=== PATIENT | female | born 1940 | race Caucasian/White ===

== ENCOUNTER → 2017-05-03 | Outpatient (CLI) | payer MEDICARE, BC ==
[2017-05-03 10:19] LABS: Blood Urea Nitrogen 21 mg/dL (7-17); Non-African American GFR(MDRD) >60 (>60 ml/min/1.73 sqM)
--- NOTE | 2017-05-03 12:11 | MR ---
EXAMINATION TYPE: MR brain wo/w con DATE OF EXAM: 05/03/2017 11:35 AM COMPARISON: NONE HISTORY: Dizziness, Tremors TECHNIQUE: Multiplanar, multiecho imaging of the brain was obtained with and without intravenous adm inistration of 15 mL intravenous MultiHance. FINDINGS: Midline structures are unremarkable. There is a normal craniocervical junction. Echoplanar diffusion imaging is normal. There are normal vascular flow voids. The orbits are unremarkable. There is no evidence of a CP angle mass lesion. There are both punctate and mild confluent white matter changes on the FLAIR dataset. These are nonsp ecific but in this age group likely result from small vessel disease and chronic ischemic change. The re is no mass effect, midline shift or intracranial blood. Following intravenous administration of gadolinium, I do not see evidence of abnormal enhancement. IMPRESSION: 1. NO ACUTE INTRACRANIAL ABNORMALITY. 2. BOTH PUNCTATE AND CONFLUENT PERIVENTRICULAR WHITE MATTER CHANGE LIKELY ON THE BASIS OF A COMBINATI ON OF SMALL VESSEL DISEASE AND CHRONIC ISCHEMIC CHANGE.
== END | disposition home or self-care (01) ==
LOC: RADMRIMAIN 09:56
PROVIDERS: ATTEND Psychiatry & Neurology Neurology
DX: C71.9 Malignant neoplasm of brain, unspecified (principal); R90.82 White matter disease, unspecified; R25.1 Tremor, unspecified
CPT/HCPCS: 82565; 84520; 70553; A9577

== ENCOUNTER 2017-12-14 12:51 | Emergency (ER) | payer MEDICARE, BC ==
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
[2017-12-14] MEDS ORDERED: SODIUM CHLORIDE 0.9% 1,000 ML IV STA (12:57)
[2017-12-14 13:27] LABS: Basophils % (A) 0 %; Eosinophils # (A) 0.1 k/uL (0-0.7); Eosinophils % (A) 1 %; HCT 41.7 % (34.0-46.0); HGB 13.6 gm/dL (11.4-16.0); Lymphocytes # (A) 0.6 k/uL (1.0-4.8); Lymphocytes % (A) 10 %; MCH 31.2 pg (25.0-35.0); MCHC 32.7 g/dL (31.0-37.0); MCV 95.7 fL (80.0-100.0); Monocytes # (A) 0.4 k/uL (0-1.0); Monocytes % (A) 6 %; Neutrophils # (A) 4.9 k/uL (1.3-7.7); Neutrophils % (A) 79 %; Platelet Count 211 k/uL (150-450); RBC 4.36 m/uL (3.80-5.40); RDW 13.5 % (11.5-15.5); WBC 6.2 k/uL (3.8-10.6)
[2017-12-14 13:36] LABS: Albumin 4.3 g/dL (3.5-5.0); Alcohol <10 mg/dL; Amylase 47 U/L (30-110); Anion Gap 10 mmol/L; Calcium 10.3 mg/dL (8.4-10.2); Carbon Dioxide 26 mmol/L (22-30); Chloride 101 mmol/L (98-107); Glucose 86 mg/dL (74-99); Lipase 129 U/L (23-300); Sodium 137 mmol/L (137-145); Total Bilirubin 0.8 mg/dL (0.2-1.3); Total Protein 7.1 g/dL (6.3-8.2)
[2017-12-14 13:40] LABS: AST 23 U/L (14-36); Blood Urea Nitrogen 20 mg/dL (7-17); INR 2.5 (<1.2); Partial Thromboplastin Time 30.4 sec (22.0-30.0); Prothrombin Time 22.7 sec (9.0-12.0)
[2017-12-14 13:41] LABS: ALT 8 U/L (9-52); Alkaline Phosphatase 60 U/L (38-126)
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
[2017-12-14 13:59] LABS: Creatine Kinase 68 U/L (30-135)
[2017-12-14 14:11] LABS: Creatine Kinase MB 0.5 ng/mL (0.0-2.4); Troponin I <0.012 ng/mL (0.000-0.034)
--- NOTE | 2017-12-14 14:35 | CT ---
EXAMINATION TYPE: CT brain barrett solorzano con DATE OF EXAM: 12/14/2017 COMPARISON: NONE HISTORY: Fall down 2 steps, pt on blood thinners CT DLP: 1861 mGycm Automated exposure control for dose reduction was used. Technique: Examination of the head was done in axial plane without intravenous contrast. Coronal and sagittal reconstructions performed. CT of the cervical spine was obtained in axial plane without intravenous injection of contrast mater ial. Coronal and sagittal reformatted images were obtained from the axial views for evaluation of f ractures, spinal alignment and canal. FINDINGS: Head: There is no evidence of acute intracranial hemorrhage, acute ischemic changes, mass, mass-effect, or extra-axial fluid collection. There is no effacement of cerebral sulci or basal subarachnoid cister ns. There is no hydrocephalus. There is no midline shift. Shirley-white matter distinction is preserv ed. Mild generalized supratentorial volume loss. Findings suggest prior sinonasal surgery. Mild mucosal thickening within the paranasal sinuses. Masto id air cells well pneumatized. Orbits and globes are intact. No calvarial fracture. Cervical spine: The craniocervical junction abnormality, predental space widening, or prevertebral soft tissue swelli ng. Normal alignment of the cervical spine. No acute fracture identified. Scattered facet and uncovertebral joint degenerative change. Changes result in very minimal mild neur al foraminal narrowing especially in the mid and lower cervical spine. Disc osteophyte complexes especially at C5-C6 and C6-C7 causes minimal narrowing of the spinal canal. Incidentally, there is a 1.2 cm hypodense nodule posterior left lobe of the thyroid gland. Sagittal and coronal reformatted images confirm above findings. COMBINED IMPRESSION: 1. No acute intracranial abnormality seen. 2. No acute fracture or malalignment of the cervical spine. Moderate multilevel spondylotic change. 3. Incidental 1.2 cm left thyroid nodule located posteriorly. Nonemergent follow-up thyroid ultrasoun d recommended to further evaluate.
--- NOTE | 2017-12-14 14:58 | XR ---
EXAMINATION TYPE: XR Hip Complete 2 views RT, XR elbow complete 3 views RT DATE OF EXAM: 12/14/2017 COMPARISON: NONE HISTORY: 76-year-old female with a pain after fall FINDINGS: Right hip: No acute fracture, subluxation, or dislocation. Hip joint space is relatively maintained. Right elbow: No acute fracture, subluxation, or dislocation seen. Mild soft tissue swelling posteriorly. Somewhat limited lateral view due to obliquity. No significant elbow joint effusion. IMPRESSION: 1. Right hip: No acute osseous abnormality seen. 2. Right elbow: Somewhat limited lateral view. No significant elbow joint effusion or acute osseous a bnormality seen. Some posterior soft tissue swelling.
[2017-12-14 15:26] VITALS: BP 130/63; PULSE 72; RESP 16; TEMP 98.2
== END 2017-12-14 15:45 | disposition home or self-care (01) ==
LOC: EC 12:51
DX: S09.90XA Unspecified injury of head, initial encounter (principal); R51 Headache; I48.91 Unspecified atrial fibrillation; I25.10 Atherosclerotic heart disease of native coronary artery without angina pectoris; I10 Essential (primary) hypertension; M19.90 Unspecified osteoarthritis, unspecified site; E07.9 Disorder of thyroid, unspecified; G40.909 Epilepsy, unspecified, not intractable, without status epilepticus; F41.9 Anxiety disorder, unspecified; Z87.891 Personal history of nicotine dependence; Z88.5 Allergy status to narcotic agent; Z88.1 Allergy status to other antibiotic agents; Z91.048 Other nonmedicinal substance allergy status; Z91.040 Latex allergy status; Z91.018 Allergy to other foods; Z88.4 Allergy status to anesthetic agent; Z91.041 Radiographic dye allergy status; Z88.8 Allergy status to other drugs, medicaments and biological substances; Z79.01 Long term (current) use of anticoagulants; Z79.899 Other long term (current) drug therapy; W10.9XXA Fall (on) (from) unspecified stairs and steps, initial encounter
CPT/HCPCS: 36415; 70450; 71045; 72125; 72170; 73502; 80053; 80320; 82150; 82550; 82553; 83690; 84484; 85025; 85610; 85730; 86850; 86900; 86901; 96360; 99284

== ENCOUNTER 2021-01-06 15:15 | Inpatient (IN) | payer MEDICARE, BC ==
[2021-01-06] MEDS ORDERED: SODIUM CHLORIDE 0.9% 1,000 ML IV STA (15:31)
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
[2021-01-06 16:29] LABS: Basophils % (A) 0 %; Eosinophils # (A) 0.1 k/uL (0-0.7); Eosinophils % (A) 1 %; HCT 37.7 % (34.0-46.0); HGB 12.9 gm/dL (11.4-16.0); Lymphocytes # (A) 0.2 k/uL (1.0-4.8); Lymphocytes % (A) 3 %; MCH 32.1 pg (25.0-35.0); MCHC 34.1 g/dL (31.0-37.0); Mean Platelet Volume 7.6; Monocytes # (A) 0.3 k/uL (0-1.0); Monocytes % (A) 4 %; Neutrophils # (A) 6.4 k/uL (1.3-7.7); Neutrophils % (A) 91 %; Platelet Count 165 k/uL (150-450); RBC 4.01 m/uL (3.80-5.40); RDW 13.2 % (11.5-15.5)
[2021-01-06 16:47] LABS: Amorphous Sediment,Urine Rare /hpf; Appearance,Urine Turbid (Clear); Bacteria,Urine Many /hpf; Bilirubin,Urine Negative (Negative); Blood,Urine Moderate (Negative); Color,Urine Yellow; Glucose,Urine (UA) Negative (Negative); Ketones,Urine Negative (Negative); Leukocyte Esterase,Urine Small (Negative); Mucus,Urine Occasional /hpf; Nitrite,Urine Negative (Negative); Protein,Urine 2+ (Negative); RBC,Urine 14 /hpf (0-5); Specific Gravity,Urine 1.023 (1.001-1.035); Squamous Epithelial Cell,Urine 14 /hpf (0-4); WBC,Urine 26 /hpf (0-5)
[2021-01-06 16:52] LABS: Albumin 3.4 g/dL (3.5-5.0); Calcium 8.9 mg/dL (8.4-10.2); Magnesium 1.7 mg/dL (1.6-2.3); Potassium 3.9 mmol/L (3.5-5.1); Total Bilirubin 0.8 mg/dL (0.2-1.3); Total Protein 6.1 g/dL (6.3-8.2)
[2021-01-06 17:02] LABS: INR 3.5 (<1.2); Partial Thromboplastin Time 45.2 sec (22.0-30.0); Prothrombin Time 33.2 sec (9.0-12.0)
--- NOTE | 2021-01-06 17:08 | CT ---
EXAMINATION TYPE: CT brain wo con DATE OF EXAM: 01/06/2021 COMPARISON: 12/14/2017 HISTORY: Patient poor historian. Altered mental status CT DLP: 1142.4 mGycm Automated exposure control for dose reduction was used. There is mild cerebral atrophy. There is no mass effect nor midline shift. There is no sign of intrac ranial hemorrhage. The calvarium is intact. The skull base is intact. IMPRESSION: Mild atrophy. No acute intracranial abnormality. No adverse change.
--- NOTE | 2021-01-06 17:19 | XR ---
EXAMINATION TYPE: XR chest 1V portable DATE OF EXAM: 01/06/2021 COMPARISON: 12/14/2017 HISTORY: Trauma. Fell down the stairs. TECHNIQUE: Single view FINDINGS: AP view on the stretcher shows no heart failure nor confluent pneumonic infiltrate. There i s no sign of pleural effusion or pneumothorax. There is some arthritic change in the right shoulder j oint. IMPRESSION: No active cardiopulmonary disease. Normal heart. No change.
--- NOTE | 2021-01-06 17:21 | XR ---
EXAMINATION TYPE: XR KUB DATE OF EXAM: 01/06/2021 COMPARISON: NONE HISTORY: Weakness TECHNIQUE: 2 views supine FINDINGS: There is no sign of intestinal obstruction or pneumoperitoneum. Fecal pattern is normal. Th ere is no evidence of a mass. There are no pathologic calcifications over the kidneys. Lung bases are clear. IMPRESSION: Nonacute abdomen.
[2021-01-06] MEDS ORDERED: methylPREDNISolone SOD SUCCI 125 MG/2 ML VIAL IV STA (17:55)
[2021-01-06] MEDS ORDERED: FAMOTIDINE 20 MG/2 ML VIAL IV STA (17:55)
[2021-01-06] MEDS ORDERED: diphenhydrAMINE 50 MG/ML 1 ML VIAL IVP STA (17:55)
[2021-01-06] MEDS ORDERED: fentaNYL (PF) 50 MCG/ML 2 ML AMP IV STA (18:27)
[2021-01-06] MEDS: SODIUM CHLORIDE 0.9% 1,000 ML IV STA ×2 (18:33→20:43)
--- NOTE | 2021-01-06 19:16 | CT ---
EXAMINATION TYPE: CT angio chest DATE OF EXAM: 01/06/2021 COMPARISON: None HISTORY: Weakness and elevated d-dimer. CT DLP: 337.6 mGycm Automated exposure control for dose reduction was used. CONTRAST: Performed with IV Contrast, patient injected with 100ml mL of Isovue 370. There are 3-D post processed images. There is some patchy atelectasis at the lung bases. This is more on the right side compared to the le ft. There is no pleural effusion. There is no pericardial effusion. Thoracic aorta is atheromatous. There is no aneurysm or dissection. The ascending aorta measures 3.2 cm. There is no mediastinal adenopathy. There are no hilar masses. There is bronchial cartilage calci fication. There is normal contrast opacification of the pulmonary arteries. There are no filling defects. Thoracic spine is intact. There is no compression fracture. Sternum is intact. The ribs appear intact . IMPRESSION: Patchy atelectasis at the lung bases. No evidence of pulmonary embolism.
--- NOTE | 2021-01-06 19:25 | CT ---
EXAMINATION TYPE: CT abdomen pelvis w con DATE OF EXAM: 01/06/2021 COMPARISON: 05/28/2015 HISTORY: Weakness and abdominal pain x4 days. CT DLP: 1084.6 mGycm Automated exposure control for dose reduction was used. CONTRAST: Performed with IV Contrast, patient injected with 100ml mL of Isovue 370. Images obtained from the diaphragm to the floor the pelvis with IV contrast. There is some mild atelectasis at the lung bases. There is minimal pleural thickening right lower lob e. There is no pericardial effusion. Heart is slightly enlarged. Liver shows no focal defect. Gallbladder appears normal. The bile ducts are not dilated. There is keren e pancreatic atrophy. The spleen is intact. There is no adrenal mass. Kidneys show satisfactory contrast opacification. There is no hydronephrosi s. There is 4.7 cm cyst on the anterior right kidney. Ureters are not dilated. Delayed images show no rmal renal excretion. There are enlarged left side abdominal para-aortic lymph nodes that measure up to 2.2 cm. There is wall thickening of the sigmoid colon. There are numerous diverticula. There are some extralu pete air bubbles seen posterior to the proximal sigmoid colon. There is no drainable fluid collectio n. There is small amount of low-density free fluid in the right adnexal region. Uterus is anteverted. There is retained fecal material in the rectum that measures 6.4 cm. The lumbar vertebra have normal alignment. There is no compression fracture. There is multilevel mild disc space narrowing. The bony pelvis is intact. The hip joints are intact. IMPRESSION: There is colonic diverticulosis with evidence of diverticulitis in the mid sigmoid colon with fat str anding and surrounding inflammatory changes. There is small extraluminal air bubbles that appear post erior to the proximal sigmoid colon. No drainable fluid collection. Rectal fecal impaction. Small amount of free fluid in the right paracolic gutter and in the pelvis. Left side abdominal enlarged para-aortic lymph nodes. Patchy atelectasis at the lung bases.
[2021-01-06] MEDS ORDERED: PIPERACILLIN-TAZOBACTAM 3.375 GM in SODIUM CHLORIDE 0.9% 100 ML IVPB STA (19:30)
[2021-01-06] MEDS ORDERED: NALOXONE 0.4 MG/ML 1 ML VIAL IV PRN (19:47)
[2021-01-06] MEDS: SODIUM CHLORIDE 0.9% 1,000 ML IV SCH (21:34)
[2021-01-07 03:19] LABS: Ferritin 469.8 ng/mL (10.0-291.0)
[2021-01-07] MEDS ORDERED: PIPERACILLIN-TAZOBACTAM 3.375 GM in SODIUM CHLORIDE 0.9% 100 ML IVPB SCH (04:00)
[2021-01-07] MEDS: SODIUM CHLORIDE 0.9% 1,000 ML IV SCH ×2 (04:08→17:20)
[2021-01-07] MEDS: PANTOPRAZOLE 40 MG/10 ML VIAL IV SCH (08:52)
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
[2021-01-07] MEDS ORDERED: GABAPENTIN 100 MG CAP PO PRN (12:09)
[2021-01-07] MEDS: PIPERACILLIN-TAZOBACTAM 3.375 GM in SODIUM CHLORIDE 0.9% 100 ML IVPB SCH ×2 (12:26→20:01)
[2021-01-07] MEDS: CITALOPRAM HYDROBROMIDE 10 MG TAB PO SCH (13:38)
[2021-01-07] MEDS: ENOXAPARIN 60 MG/0.6 ML SYRINGE SQ SCH ×2 (13:39→21:01)
[2021-01-07] MEDS: LEVOTHYROXINE 25 MCG TAB PO SCH (13:39)
[2021-01-07] MEDS: HYDROXYCHLOROQUINE SULFATE 200 MG TAB PO SCH ×2 (13:39→21:01)
[2021-01-07] MEDS: CARBIDOPA-LEVODOPA 25-100 MG 1 EACH TAB PO SCH ×4 (13:40→21:01)
[2021-01-07] MEDS: METOPROLOL SUCCINATE (ER) 50 MG TAB.ER.24H PO SCH (13:47)
[2021-01-07] MEDS: LOSARTAN 50 MG TAB PO SCH (13:47)
[2021-01-07] MEDS: LACTATED RINGERS 1,000 ML IV SCH (17:18)
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
[2021-01-08] MEDS ORDERED: diphenhydrAMINE 25 MG CAP PO PRN (00:03)
[2021-01-08] MEDS ORDERED: diphenhydrAMINE 50 MG/ML 1 ML VIAL IVP STA (00:03)
[2021-01-08] MEDS ORDERED: methylPREDNISolone SOD SUCCI 125 MG/2 ML VIAL IV STA (00:04)
[2021-01-08] MEDS ORDERED: FAMOTIDINE 20 MG/2 ML VIAL IV ONE (00:16)
[2021-01-08] MEDS: LACTATED RINGERS 1,000 ML IV SCH ×3 (00:24→19:30)
[2021-01-08] MEDS: LEVOFLOXACIN 750MG-D5W PMX 750 MG in DEXTROSE/WATER 1 150ML.BAG IVPB SCH (01:49)
[2021-01-08] MEDS: metroNIDAZOLE-NS PMX 500 MG in SALINE 1 100ML.BAG IVPB SCH ×4 (05:18→23:33)
[2021-01-08] MEDS: CARBIDOPA-LEVODOPA 25-100 MG 1 EACH TAB PO SCH ×4 (07:33→20:50)
[2021-01-08] MEDS: LEVOTHYROXINE 25 MCG TAB PO SCH (07:34)
[2021-01-08] MEDS: methylPREDNISolone SOD SUCCI 40 MG/ML 1 ML VIAL IV SCH ×3 (07:34→23:33)
[2021-01-08 07:38] LABS: Glucose,Whole Blood 123 mg/dL (75-99)
[2021-01-08] MEDS: LOSARTAN 50 MG TAB PO SCH (09:54)
[2021-01-08] MEDS: METOPROLOL SUCCINATE (ER) 50 MG TAB.ER.24H PO SCH (09:54)
[2021-01-08] MEDS: HYDROXYCHLOROQUINE SULFATE 200 MG TAB PO SCH ×2 (09:55→20:50)
[2021-01-08] MEDS: ENOXAPARIN 60 MG/0.6 ML SYRINGE SQ SCH ×2 (09:55→20:51)
[2021-01-08] MEDS: PANTOPRAZOLE 40 MG/10 ML VIAL IV SCH (09:55)
[2021-01-08] MEDS: CITALOPRAM HYDROBROMIDE 10 MG TAB PO SCH (09:55)
[2021-01-08 10:56] LABS: Glucose,Whole Blood 172 mg/dL (75-99)
--- NOTE | 2021-01-08 14:24 | P.PN ---
Progress Note - Text Progress Note Date: 01/08/21 Patient feels better. Her abdominal pain is decreased. On exam vital signs are stable. Abdomen soft. Left lower quadrant pain is improved. Resolving diverticula is. Patient can receive IV antibiotic.
[2021-01-08 17:47] LABS: Glucose,Whole Blood 137 mg/dL (75-99)
[2021-01-08 20:50] LABS: Glucose,Whole Blood 117 mg/dL (75-99)
[2021-01-08] MEDS: amLODIPine 10 MG TAB PO SCH (20:50)
[2021-01-08] MEDS: ACETAMINOPHEN TAB 325 MG TAB PO PRN (20:53)
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
[2021-01-09] MEDS: LEVOFLOXACIN 750MG-D5W PMX 750 MG in DEXTROSE/WATER 1 150ML.BAG IVPB SCH (00:38)
[2021-01-09 05:31] LABS: Basophils % (A) 0 %; Eosinophils % (A) 0 %; HCT 36.2 % (34.0-46.0); HGB 12.2 gm/dL (11.4-16.0); Lymphocytes # (A) 0.2 k/uL (1.0-4.8); Lymphocytes % (A) 4 %; MCH 31.7 pg (25.0-35.0); MCHC 33.6 g/dL (31.0-37.0); MCV 94.4 fL (80.0-100.0); Mean Platelet Volume 7.4; Monocytes # (A) 0.4 k/uL (0-1.0); Monocytes % (A) 6 %; Neutrophils # (A) 5.9 k/uL (1.3-7.7); Neutrophils % (A) 89 %; Platelet Count 251 k/uL (150-450); RBC 3.83 m/uL (3.80-5.40); RDW 13.2 % (11.5-15.5); WBC 6.6 k/uL (3.8-10.6)
[2021-01-09] MEDS: metroNIDAZOLE-NS PMX 500 MG in SALINE 1 100ML.BAG IVPB SCH ×3 (06:18→17:09)
[2021-01-09] MEDS: LACTATED RINGERS 1,000 ML IV SCH ×3 (06:18→21:24)
[2021-01-09 06:28] LABS: African American GFR (CKD) 86 (>60 ml/min/1.73 sqM); Anion Gap 4 mmol/L; Blood Urea Nitrogen 17 mg/dL (7-17); Carbon Dioxide 29 mmol/L (22-30); Chloride 100 mmol/L (98-107); Glucose 116 mg/dL (74-99); Non-African American GFR(CKD) 74 (>60 ml/min/1.73 sqM); Potassium 3.6 mmol/L (3.5-5.1); Sodium 133 mmol/L (137-145)
[2021-01-09 07:30] LABS: Glucose,Whole Blood 114 mg/dL (75-99)
[2021-01-09] MEDS: HYDROXYCHLOROQUINE SULFATE 200 MG TAB PO SCH ×2 (09:00→21:18)
[2021-01-09] MEDS: CITALOPRAM HYDROBROMIDE 10 MG TAB PO SCH (09:00)
[2021-01-09] MEDS: LEVOTHYROXINE 25 MCG TAB PO SCH (09:00)
[2021-01-09] MEDS: LOSARTAN 50 MG TAB PO SCH (09:00)
[2021-01-09] MEDS: methylPREDNISolone SOD SUCCI 40 MG/ML 1 ML VIAL IV SCH ×2 (09:00→17:10)
[2021-01-09] MEDS: METOPROLOL SUCCINATE (ER) 50 MG TAB.ER.24H PO SCH (09:00)
[2021-01-09] MEDS: amLODIPine 10 MG TAB PO SCH (09:00)
[2021-01-09] MEDS: CARBIDOPA-LEVODOPA 25-100 MG 1 EACH TAB PO SCH ×4 (09:00→21:19)
[2021-01-09] MEDS: ENOXAPARIN 60 MG/0.6 ML SYRINGE SQ SCH ×2 (09:02→21:19)
[2021-01-09] MEDS: PANTOPRAZOLE 40 MG/10 ML VIAL IV SCH (09:02)
[2021-01-09 11:45] LABS: Glucose,Whole Blood 112 mg/dL (75-99)
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
[2021-01-09 17:00] LABS: Glucose,Whole Blood 110 mg/dL (75-99)
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
[2021-01-09 20:32] LABS: Glucose,Whole Blood 139 mg/dL (75-99)
[2021-01-09] MEDS: ZOLPIDEM 5 MG TAB PO SCH (21:17)
[2021-01-10] MEDS: metroNIDAZOLE-NS PMX 500 MG in SALINE 1 100ML.BAG IVPB SCH ×3 (00:20→12:37)
[2021-01-10] MEDS: methylPREDNISolone SOD SUCCI 40 MG/ML 1 ML VIAL IV SCH ×3 (01:28→17:04)
[2021-01-10] MEDS: LEVOFLOXACIN 750MG-D5W PMX 750 MG in DEXTROSE/WATER 1 150ML.BAG IVPB SCH (01:29)
[2021-01-10] MEDS: PANTOPRAZOLE 40 MG/10 ML VIAL IV SCH (07:38)
[2021-01-10] MEDS: amLODIPine 10 MG TAB PO SCH (07:40)
[2021-01-10] MEDS: CARBIDOPA-LEVODOPA 25-100 MG 1 EACH TAB PO SCH ×4 (07:40→21:12)
[2021-01-10] MEDS: METOPROLOL SUCCINATE (ER) 50 MG TAB.ER.24H PO SCH (07:40)
[2021-01-10] MEDS: ENOXAPARIN 60 MG/0.6 ML SYRINGE SQ SCH ×2 (07:40→21:11)
[2021-01-10] MEDS: LEVOTHYROXINE 25 MCG TAB PO SCH (07:40)
[2021-01-10] MEDS: LOSARTAN 50 MG TAB PO SCH (07:41)
[2021-01-10] MEDS: CITALOPRAM HYDROBROMIDE 10 MG TAB PO SCH (07:41)
[2021-01-10] MEDS: ACETAMINOPHEN TAB 325 MG TAB PO PRN (07:43)
[2021-01-10] MEDS: HYDROXYCHLOROQUINE SULFATE 200 MG TAB PO SCH ×2 (07:43→21:11)
[2021-01-10 07:51] LABS: Glucose,Whole Blood 113 mg/dL (75-99)
[2021-01-10] MEDS: LACTATED RINGERS 1,000 ML IV SCH ×2 (10:38→21:15)
[2021-01-10 11:26] VITALS: BMI 27.4
[2021-01-10 12:27] LABS: Glucose,Whole Blood 108 mg/dL (75-99)
--- NOTE | 2021-01-10 13:42 | P.PN ---
Subjective Progress Note Date: 01/10/21 CHIEF COMPLAINT: Abdominal pain HISTORY OF PRESENT ILLNESS: Surgical service is following in regards to marry salcido's diverticulitis. She reports her pain about a 3 out of 10. She's had decrease in her left lower quadrant pain. She denies any nausea or vomiting. She is on a low fiber diet. Afebrile. Patient seen and examined with Dr. Orona. PHYSICAL EXAM: VITAL SIGNS: Reviewed. GENERAL: Well-developed in no acute distress. HEENT: No sclera icterus. Extraocular movements grossly intact. Moist buccal mucosa. Head is atraumatic, normocephalic. ABDOMEN: Soft. Nondistended. Minimal tenderness left lower quadrant NEUROLOGIC: Alert and oriented. Cranial nerves II through XII grossly intact. ASSESSMENT: 1. Diverticulitis of the mid sigmoid colon with microperforation PLAN: -Continue supportive care -Continue conservative management -Continue continue low fiber diet -Continue antibiotics -PT OT following Physician Flexographic Press Helper note has been reviewed by physician. Signing provider agrees with the documented findings, assessment, and plan of care. Objective - Vital Signs Vital signs: Vital Signs Temp 97.9 F 01/10/21 07:50 Pulse 93 01/10/21 07:50 Resp 17 01/10/21 07:50 BP 169/90 01/10/21 07:50 Pulse Ox 94 L 01/10/21 07:50 Intake & Output 01/09/21 01/10/21 01/10/21 18:59 06:59 18:59 Intake Total 2140 1350 Balance 2140 1350 Weight 72.575 kg Intake: Intake, IV Titration 1400 1350 Amount Lactated Ringers 1,000 ml 1200 1000 @ 100 mls/hr IV .Q10H [facility] Rx#:[id number] Levofloxacin 750Mg-D5w 150 Pmx 750 mg In Dextrose/ Water 1 150ml.bag @ 100 mls/hr IVPB Q24H [facility] Rx#: [id number] metroNIDAZOLE-NS PMX 500 200 200 mg In Saline 1 100ml.bag @ 100 mls/hr IVPB Q6HR [facility] Rx#:[id number] Oral 740 Other: Voiding Method Bedside Commode Diaper Bedpan Diaper # Voids 7 3 # Bowel Movements 1 - Labs CBC & Chem 7: 01/09/21 05:13 01/09/21 05:13 Labs: Abnormal Lab Results - Last 24 Hours (Table) 01/09/21 01/09/21 01/10/21 Range/Units 16:55 20:31 07:39 POC Glucose (mg/dL) 110 H 139 H 113 H (75-99) mg/dL 01/10/21 Range/Units 12:15 POC Glucose (mg/dL) 108 H (75-99) mg/dL Microbiology - Last 24 Hours (Table) 01/06/21 16:27 Blood Culture - Preliminary Blood No Growth after 72 hours
[2021-01-10] MEDS: metroNIDAZOLE 500 MG TAB PO SCH (17:04)
[2021-01-10 17:41] LABS: Glucose,Whole Blood 106 mg/dL (75-99)
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
[2021-01-10 20:14] LABS: Glucose,Whole Blood 136 mg/dL (75-99)
[2021-01-10] MEDS: ZOLPIDEM 5 MG TAB PO SCH (21:09)
[2021-01-11] MEDS: metroNIDAZOLE 500 MG TAB PO SCH ×5 (00:30→23:08)
[2021-01-11] MEDS: LEVOFLOXACIN 750 MG TAB PO SCH (05:52)
[2021-01-11 06:12] LABS: Basophils % (A) 0 %; Eosinophils # (A) 0.1 k/uL (0-0.7); Eosinophils % (A) 1 %; HCT 39.7 % (34.0-46.0); HGB 12.9 gm/dL (11.4-16.0); Lymphocytes # (A) 0.4 k/uL (1.0-4.8); Lymphocytes % (A) 3 %; MCH 30.5 pg (25.0-35.0); MCHC 32.5 g/dL (31.0-37.0); MCV 93.8 fL (80.0-100.0); Mean Platelet Volume 7.2; Monocytes # (A) 0.5 k/uL (0-1.0); Monocytes % (A) 4 %; Neutrophils # (A) 11.1 k/uL (1.3-7.7); Neutrophils % (A) 92 %; Platelet Count 299 k/uL (150-450); RBC 4.24 m/uL (3.80-5.40); RDW 13.7 % (11.5-15.5); WBC 12.1 k/uL (3.8-10.6)
[2021-01-11 06:28] LABS: African American GFR (CKD) 90 (>60 ml/min/1.73 sqM); Anion Gap 1 mmol/L; Blood Urea Nitrogen 21 mg/dL (7-17); Calcium 8.6 mg/dL (8.4-10.2); Carbon Dioxide 32 mmol/L (22-30); Chloride 97 mmol/L (98-107); Glucose 104 mg/dL (74-99); Non-African American GFR(CKD) 78 (>60 ml/min/1.73 sqM); Potassium 3.4 mmol/L (3.5-5.1); Sodium 130 mmol/L (137-145)
[2021-01-11 07:06] LABS: Glucose,Whole Blood 90 mg/dL (75-99)
[2021-01-11] MEDS ORDERED: POTASSIUM CHLORIDE ER 20 MEQ TAB.ER PO STA (08:20)
[2021-01-11] MEDS: amLODIPine 10 MG TAB PO SCH (08:36)
[2021-01-11] MEDS: PANTOPRAZOLE 40 MG TABLET PO SCH (08:36)
[2021-01-11] MEDS: LOSARTAN 50 MG TAB PO SCH (08:36)
[2021-01-11] MEDS: LACTATED RINGERS 1,000 ML IV SCH ×2 (08:37→23:09)
[2021-01-11] MEDS: METOPROLOL SUCCINATE (ER) 50 MG TAB.ER.24H PO SCH (08:37)
[2021-01-11] MEDS: ONDANSETRON 4 MG/2 ML VIAL IVP PRN (08:52)
[2021-01-11 11:38] LABS: Glucose,Whole Blood 100 mg/dL (75-99)
[2021-01-11] MEDS: ENOXAPARIN 60 MG/0.6 ML SYRINGE SQ SCH ×2 (11:38→20:08)
[2021-01-11] MEDS: HYDROXYCHLOROQUINE SULFATE 200 MG TAB PO SCH ×2 (11:38→20:08)
[2021-01-11] MEDS: CARBIDOPA-LEVODOPA 25-100 MG 1 EACH TAB PO SCH ×4 (11:38→20:08)
[2021-01-11] MEDS: LEVOTHYROXINE 25 MCG TAB PO SCH (11:38)
[2021-01-11] MEDS: CITALOPRAM HYDROBROMIDE 10 MG TAB PO SCH (11:38)
[2021-01-11] MEDS: ACETAMINOPHEN TAB 325 MG TAB PO PRN ×2 (14:05→19:18)
--- NOTE | 2021-01-11 15:23 | P.PN ---
Subjective Progress Note Date: 01/11/21 CHIEF COMPLAINT: Abdominal pain HISTORY OF PRESENT ILLNESS: Surgical service is following in regards to p omari's diverticulitis. Patient's left lower quadrant pain has improved. She denies any nausea or vomiting. She is on a low fiber diet. Afebrile. WBC 12.1 potassium 3.4 Patient seen and examined with Dr. Orona. PHYSICAL EXAM: VITAL SIGNS: Reviewed. GENERAL: Well-developed in no acute distress. HEENT: No sclera icterus. Extraocular movements grossly intact. Moist buccal mucosa. Head is atraumatic, normocephalic. ABDOMEN: Soft. Nondistended. Nontender NEUROLOGIC: Alert and oriented. Cranial nerves II through XII grossly intact. ASSESSMENT: 1. Diverticulitis of the mid sigmoid colon with microperforation PLAN: -Continue supportive care -Continue conservative management -Continue continue low fiber diet -Potassium replaced -Continue antibiotics -PT OT following Physician Enrollment Counselor note has been reviewed by physician. Signing provider agrees with the documented findings, assessment, and plan of care. Objective - Vital Signs Vital signs: Vital Signs Temp 97.3 F L 01/11/21 11:42 Pulse 74 01/11/21 11:42 Resp 17 01/11/21 11:42 BP 160/76 01/11/21 11:42 Pulse Ox 95 01/11/21 11:42 Intake & Output 01/10/21 01/11/21 01/11/21 18:59 06:59 18:59 Intake Total 2380 Balance 2380 Weight 72.575 kg Intake: Intake, IV Titration 1400 Amount Lactated Ringers 1,000 ml 1200 @ 100 mls/hr IV .Q10H [facility] Rx#:[id number] metroNIDAZOLE-NS PMX 500 200 mg In Saline 1 100ml.bag @ 100 mls/hr IVPB Q6HR [facility] Rx#:[id number] Oral 980 Other: Voiding Method Diaper Diaper Diaper # Voids 2 5 # Bowel Movements 2 - Labs CBC & Chem 7: 01/11/21 05:40 01/11/21 05:40 Labs: Abnormal Lab Results - Last 24 Hours (Table) 01/10/21 01/10/21 01/11/21 Range/Units 17:38 20:12 05:40 WBC 12.1 H (3.8-10.6) k/uL Neutrophils # 11.1 H (1.3-7.7) k/uL Lymphocytes # 0.4 L (1.0-4.8) k/uL Sodium (137-145) mmol/L Potassium (3.5-5.1) mmol/L Chloride (98-107) mmol/L Carbon Dioxide (22-30) mmol/L BUN (7-17) mg/dL Glucose (74-99) mg/dL POC Glucose (mg/dL) 106 H 136 H (75-99) mg/dL 01/11/21 01/11/21 Range/Units 05:40 11:37 WBC (3.8-10.6) k/uL Neutrophils # (1.3-7.7) k/uL Lymphocytes # (1.0-4.8) k/uL Sodium 130 L (137-145) mmol/L Potassium 3.4 L (3.5-5.1) mmol/L Chloride 97 L (98-107) mmol/L Carbon Dioxide 32 H (22-30) mmol/L BUN 21 H (7-17) mg/dL Glucose 104 H (74-99) mg/dL POC Glucose (mg/dL) 100 H (75-99) mg/dL Microbiology - Last 24 Hours (Table) 01/06/21 16:27 Blood Culture - Preliminary Blood No Growth after 96 hours
[2021-01-11 17:03] LABS: Glucose,Whole Blood 111 mg/dL (75-99)
[2021-01-11 19:50] LABS: Glucose,Whole Blood 99 mg/dL (75-99)
[2021-01-11] MEDS: ZOLPIDEM 5 MG TAB PO SCH (20:08)
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
[2021-01-12] MEDS ORDERED: IOPAMIDOL CONTRAST (ORAL USE) VIAL PO PRN
[2021-01-12] MEDS ORDERED: methylPREDNISolone SOD SUCCI 125 MG/2 ML VIAL IV ONE (03:00)
[2021-01-12] MEDS: LACTATED RINGERS 1,000 ML IV SCH ×2 (04:13→08:12)
[2021-01-12] MEDS: metroNIDAZOLE 500 MG TAB PO SCH ×4 (04:57→23:30)
[2021-01-12] MEDS: LEVOFLOXACIN 750 MG TAB PO SCH (04:57)
[2021-01-12] MEDS: ACETAMINOPHEN TAB 325 MG TAB PO PRN ×2 (05:47→12:08)
[2021-01-12 07:28] LABS: Glucose,Whole Blood 93 mg/dL (75-99)
[2021-01-12 07:39] LABS: Basophils # (A) 0.1 k/uL (0-0.2); Basophils % (A) 0 %; Eosinophils # (A) 0.1 k/uL (0-0.7); Eosinophils % (A) 0 %; HCT 37.8 % (34.0-46.0); HGB 12.6 gm/dL (11.4-16.0); Lymphocytes # (A) 0.2 k/uL (1.0-4.8); Lymphocytes % (A) 1 %; MCH 31.7 pg (25.0-35.0); MCHC 33.4 g/dL (31.0-37.0); MCV 94.8 fL (80.0-100.0); Mean Platelet Volume 7.1; Monocytes # (A) 0.7 k/uL (0-1.0); Monocytes % (A) 3 %; Neutrophils # (A) 18.1 k/uL (1.3-7.7); Neutrophils % (A) 95 %; Platelet Count 233 k/uL (150-450); RBC 3.99 m/uL (3.80-5.40); RDW 13.5 % (11.5-15.5)
[2021-01-12] MEDS: IOPAMIDOL CONTRAST (ORAL USE) VIAL PO PRN ×2 (07:56→08:40)
[2021-01-12] MEDS ORDERED: FAMOTIDINE 20 MG/2 ML VIAL IV ONE (08:30)
[2021-01-12] MEDS ORDERED: diphenhydrAMINE 50 MG/ML 1 ML VIAL IVP ONE (08:30)
--- NOTE | 2021-01-12 10:15 | CT ---
EXAMINATION TYPE: CT abdomen pelvis w con DATE OF EXAM: 01/12/2021 COMPARISON: 01/06/2021 and 05/28/2015 HISTORY: 80-year-old female follow-up diverticulitis, Generalized pain and weakness TECHNIQUE: Contiguous axial scanning of the abdomen and pelvis following administration of 100 ml Iso adrián 300 IV contrast. Delayed images through the kidneys not performed due to IV malfunction. Coronal /sagittal reconstructions performed. CT DLP: 700.8 mGycm Automated exposure control for dose reduction was used. FINDINGS: Heart upper limits of normal in size without pericardial effusion. New small bilateral pleural effusions with adjacent dependent atelectasis. Moderate generalized anasarca change new from 01/06/2021. No focal liver lesion or biliary ductal dilatation. Portal venous system is patent. 4.1 cm diverticul um of the third portion of the duodenum projecting into the pancreatic head region. Nonspecific mild gallbladder wall thickening. No hydropic change. The adrenal glands, spleen with inferior splenule, and atrophic pancreas show no gross abnormality. New mild abdominopelvic ascites. Continued scattered mild free intraperitoneal air, relatively simila r to 01/06/2021. Again, increased generalized anasarca. No dilated small bowel. Stable couple cystic areas along the left periaortic retroperitoneum at the level of the kidneys judy uring 2.1 and 1.5 cm 4.9 cm cyst right kidney. Tiny 1.2 cm cortical hypodensity lateral mid pole right kidney too small fo r accurate CT characterization, probable cyst. There is new lobulated area of hypoenhancement within the posterior lower pole left kidney measuring up to 3.5 cm and smaller area at the right lower pole. Oral contrast progressed into the descending colon. Left-sided colonic diverticulosis, extensive with in the sigmoid colon. Residual wall thickening and surrounding inflammatory edema. While some of the fat stranding and thickening has improved slightly, the areas of contained leak extending inferiorly from the mid sigmoid to the level of the uterine fundus is slightly larger at 5.5 x 2.5 cm versus 4.6 x 2.4 cm, previously. Additional leak extending superiorly measures 4.5 x 2.5 cm and only shows some inflammatory thickenin g previously. Moderate to severe presacral edema has increased. Mild circumferential bladder wall thickening. No abnormal air within the bladder lumen. Uterus anteverted. The region of the left ovary is seen. Right ovary not clearly delineated. Bones: Mild degenerative change of both hips. Osteopenia. Moderately advanced spondylotic change thro ughout the visualized lumbar spine. IMPRESSION: 1. INTERVAL DEVELOPMENT OF GENERALIZED ANASARCA, SMALL BILATERAL PLEURAL EFFUSIONS, MILD ABDOMINOPELV IC ASCITES, AND PROMINENT PRESACRAL EDEMA. 2. SCATTERED MILD FREE INTRAPERITONEAL AIR RELATIVELY SIMILAR TO 01/06/2021. 3. CHANGES OF MID TO DISTAL SIGMOID ACUTE DIVERTICULITIS REDEMONSTRATED. THE CONTAINED LEAK EXTENDING INFERIORLY TO THE LEVEL OF THE UTERINE FUNDUS HAS ENLARGED SLIGHTLY AT 5.5 X 2.5 CM (VERSUS 4.6 X 2. 4 CM, PREVIOUSLY) AND THERE IS NEW CONTAINED LEAK EXTENDING SUPERIORLY MEASURING 4.5 X 2.5 CM. THE MOLLY ELDRIDGE'S PRIOR EXAM ONLY HAD SOME INFLAMMATORY THICKENING IN THIS REGION BEFORE. 4. ALSO NEW ARE PROMINENT FOCAL AREAS OF HYPOENHANCEMENT WITHIN THE LOWER POLES OF THE KIDNEYS MEASUR ING UP TO 3.5 CM. DIFFERENTIAL CONSIDERATIONS INCLUDE AREAS OF RENAL INFARCT AND PYELONEPHRITIS. ESTEPHANIE ELATION SHOULD BE MADE FOR POTENTIAL PYELONEPHRITIS.
[2021-01-12 12:04] LABS: Glucose,Whole Blood 105 mg/dL (75-99)
[2021-01-12] MEDS: METOPROLOL SUCCINATE (ER) 50 MG TAB.ER.24H PO SCH (12:10)
[2021-01-12] MEDS: ENOXAPARIN 60 MG/0.6 ML SYRINGE SQ SCH ×2 (12:10→21:18)
[2021-01-12] MEDS: LOSARTAN 50 MG TAB PO SCH (12:10)
[2021-01-12] MEDS: PANTOPRAZOLE 40 MG TABLET PO SCH (12:10)
[2021-01-12] MEDS: CARBIDOPA-LEVODOPA 25-100 MG 1 EACH TAB PO SCH ×4 (12:11→21:18)
[2021-01-12] MEDS: HYDROXYCHLOROQUINE SULFATE 200 MG TAB PO SCH ×2 (12:11→21:18)
[2021-01-12] MEDS: LEVOTHYROXINE 25 MCG TAB PO SCH (12:11)
[2021-01-12] MEDS: CITALOPRAM HYDROBROMIDE 10 MG TAB PO SCH (12:12)
[2021-01-12] MEDS: amLODIPine 10 MG TAB PO SCH (12:15)
--- NOTE | 2021-01-12 15:28 | P.PN ---
Subjective Progress Note Date: 01/12/21 CHIEF COMPLAINT: Abdominal pain HISTORY OF PRESENT ILLNESS: Surgical service is following in regards to p omari's diverticulitis. Patient is tender in the left lower quadrant. Her white count has increased to 19. She had a computed tomography scan of the abdomen and pelvis showing scattered mild free intraperitoneal air relatively slow monitor 01/06/2021. Changes of mid to distal sigmoid acute diverticulitis redemonstrated. The contained leak extending inferiorly to the level of the uterine fundus has enlarged slightly at 5.5 x 2.5 cm versus 4.6 x 2.4 cm. And there is a new contained leak extending superiorly measuring 4.5 x 2.5 cm. The patient's prior exam only had some inflammatory thickening in this region before. Afebrile. WBC 19 Hgb 12.6 Patient seen and examined with Dr. Orona. PHYSICAL EXAM: VITAL SIGNS: Reviewed. GENERAL: Well-developed in no acute distress. HEENT: No sclera icterus. Extraocular movements grossly intact. Moist buccal mucosa. Head is atraumatic, normocephalic. ABDOMEN: Soft. Nondistended. Tenderness with palpation of the left lower quadrant NEUROLOGIC: Alert and oriented. Cranial nerves II through XII grossly intact. ASSESSMENT: 1. Diverticulitis of the mid to distal sigmoid colon with perforation. Patient's CAT scan shows that the contained leak extending inferiorly to the level of the uterine fundus has enlarged slightly and a new contained leak extending superiorly is also noted. PLAN: -Patient is tentatively scheduled for sigmoid colectomy with colostomy placement tomorrow, 01/13/[address] Orona -Keep patient nothing by mouth for now -Continue IV fluid -Continue antibiotics [employer] note has been reviewed by physician. Signing provider agrees with the documented findings, assessment, and plan of care. Objective - Vital Signs Vital signs: Vital Signs Temp 98.1 F 01/12/21 12:41 Pulse 76 01/12/21 12:41 Resp 14 01/12/21 12:41 BP 151/76 01/12/21 12:41 Pulse Ox 92 L 01/12/21 12:41 Intake & Output 01/11/21 01/12/21 01/12/21 18:59 06:59 18:59 Intake Total 900 590 Balance 900 590 Intake: Intake, IV Titration 900 Amount Lactated Ringers 1,000 ml 900 @ 100 mls/hr IV .Q10H [facility] Rx#:[id number] Oral 590 Other: Voiding Method Diaper Diaper Diaper # Voids 2 2 # Bowel Movements 2 - Labs CBC & Chem 7: 01/12/21 07:07 01/11/21 05:40 Labs: Abnormal Lab Results - Last 24 Hours (Table) 01/11/21 01/12/21 01/12/21 Range/Units 17:01 07:07 12:03 WBC 19.0 H (3.8-10.6) k/uL Neutrophils # 18.1 H (1.3-7.7) k/uL Lymphocytes # 0.2 L (1.0-4.8) k/uL POC Glucose (mg/dL) 111 H 105 H (75-99) mg/dL Microbiology - Last 24 Hours (Table) 01/06/21 16:27 Blood Culture - Preliminary Blood No Growth after 120 hours
[2021-01-12 16:39] LABS: African American GFR (CKD) >90 (>60 ml/min/1.73 sqM); Anion Gap 4 mmol/L; Blood Urea Nitrogen 18 mg/dL (7-17); Calcium 8.2 mg/dL (8.4-10.2); Carbon Dioxide 29 mmol/L (22-30); Chloride 93 mmol/L (98-107); Glucose 105 mg/dL (74-99); Non-African American GFR(CKD) 87 (>60 ml/min/1.73 sqM); Sodium 126 mmol/L (137-145)
[2021-01-12 17:33] LABS: Glucose,Whole Blood 91 mg/dL (75-99)
[2021-01-12] MEDS ORDERED: POTASSIUM CHLORIDE ER 20 MEQ TAB.ER PO SCH (19:15)
[2021-01-12 20:07] LABS: Glucose,Whole Blood 90 mg/dL (75-99)
[2021-01-12] MEDS: ZOLPIDEM 5 MG TAB PO SCH (21:19)
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
[2021-01-13] MEDS: LACTATED RINGERS 1,000 ML IV SCH ×2 (03:21→08:44)
[2021-01-13] MEDS: metroNIDAZOLE 500 MG TAB PO SCH ×2 (04:38→13:22)
[2021-01-13] MEDS: LEVOFLOXACIN 750 MG TAB PO SCH (04:38)
[2021-01-13 07:06] LABS: Basophils % (A) 0 %; Eosinophils # (A) 0.1 k/uL (0-0.7); Eosinophils % (A) 0 %; HCT 36.2 % (34.0-46.0); HGB 11.9 gm/dL (11.4-16.0); Lymphocytes # (A) 0.4 k/uL (1.0-4.8); Lymphocytes % (A) 2 %; MCH 31.6 pg (25.0-35.0); Mean Platelet Volume 7.3; Monocytes # (A) 0.6 k/uL (0-1.0); Monocytes % (A) 3 %; Neutrophils # (A) 16.7 k/uL (1.3-7.7); Neutrophils % (A) 94 %; Platelet Count 225 k/uL (150-450); RBC 3.77 m/uL (3.80-5.40); RDW 13.4 % (11.5-15.5); WBC 17.8 k/uL (3.8-10.6)
[2021-01-13 07:08] LABS: Glucose,Whole Blood 70 mg/dL (75-99)
[2021-01-13 07:18] LABS: African American GFR (CKD) 83 (>60 ml/min/1.73 sqM); Anion Gap 2 mmol/L; Blood Urea Nitrogen 18 mg/dL (7-17); Calcium 8.1 mg/dL (8.4-10.2); Carbon Dioxide 33 mmol/L (22-30); Chloride 93 mmol/L (98-107); Glucose 68 mg/dL (74-99); Non-African American GFR(CKD) 72 (>60 ml/min/1.73 sqM); Potassium 3.4 mmol/L (3.5-5.1); Sodium 128 mmol/L (137-145)
[2021-01-13] MEDS ORDERED: FUROSEMIDE 10 MG/ML 2 ML VIAL IV ONE (08:05)
[2021-01-13] MEDS ORDERED: SODIUM CHLORIDE TAB 1 GM TAB PO STA (08:10)
[2021-01-13] MEDS ORDERED: DEXTROSE 50% SYRINGE 50 ML IVP STA ×2 (08:19→17:41)
[2021-01-13] MEDS: POTASSIUM CHLORIDE 10 MEQ in WATER FOR INJECTION 1 100ML.BAG IVPB SCH ×4 (08:37→21:35)
[2021-01-13] MEDS: amLODIPine 10 MG TAB PO SCH (08:40)
[2021-01-13] MEDS: LOSARTAN 50 MG TAB PO SCH (08:40)
[2021-01-13] MEDS: PANTOPRAZOLE 40 MG TABLET PO SCH (08:40)
[2021-01-13] MEDS: METOPROLOL SUCCINATE (ER) 50 MG TAB.ER.24H PO SCH (08:42)
[2021-01-13] MEDS: HYDROXYCHLOROQUINE SULFATE 200 MG TAB PO SCH ×2 (08:43→21:35)
[2021-01-13] MEDS: LEVOTHYROXINE 25 MCG TAB PO SCH (08:43)
[2021-01-13] MEDS: CITALOPRAM HYDROBROMIDE 10 MG TAB PO SCH (08:43)
[2021-01-13] MEDS: CARBIDOPA-LEVODOPA 25-100 MG 1 EACH TAB PO SCH ×4 (08:44→21:35)
[2021-01-13] MEDS: ACETAMINOPHEN TAB 325 MG TAB PO PRN (08:49)
[2021-01-13] MEDS: CYCLOBENZAPRINE 5 MG TAB PO PRN (10:38)
[2021-01-13 11:51] LABS: Glucose,Whole Blood 109 mg/dL (75-99)
[2021-01-13 12:54] LABS: INR 3.9 (<1.2); Partial Thromboplastin Time 32.8 sec (22.0-30.0); Prothrombin Time 37.1 sec (9.0-12.0)
[2021-01-13 13:04] LABS: ALT 9 U/L (4-34); AST 43 U/L (14-36); African American GFR (CKD) 86 (>60 ml/min/1.73 sqM); Albumin 2.5 g/dL (3.5-5.0); Albumin/Globulin Ratio 1.1; Alkaline Phosphatase 52 U/L (38-126); Anion Gap 3 mmol/L; Blood Urea Nitrogen 17 mg/dL (7-17); Carbon Dioxide 34 mmol/L (22-30); Chloride 91 mmol/L (98-107); Globulin 2.2 g/dL; Glucose 88 mg/dL (74-99); Non-African American GFR(CKD) 74 (>60 ml/min/1.73 sqM); Potassium 3.4 mmol/L (3.5-5.1); Sodium 128 mmol/L (137-145); Total Bilirubin 0.8 mg/dL (0.2-1.3); Total Protein 4.7 g/dL (6.3-8.2)
[2021-01-13] MEDS ORDERED: HYDROmorphone 1 MG/ML 1 ML SYRINGE IVP PRN (13:35)
[2021-01-13] MEDS ORDERED: PHYTONADIONE 10 MG in SODIUM CHLORIDE 0.9% 50 ML IVPB STA (14:27)
[2021-01-13] MEDS: MORPHINE SULFATE 4 MG/ML SYRINGE IVP PRN ×2 (14:41→18:23)
--- NOTE | 2021-01-13 14:59 | P.PN ---
Subjective Progress Note Date: 01/13/21 CHIEF COMPLAINT: Abdominal pain HISTORY OF PRESENT ILLNESS: Surgical service is following in regards to marry salcido's diverticulitis. She had a computed tomography scan of the abdomen and pelvis showing scattered mild free intraperitoneal air relatively slow monitor 01/06/2021. Changes of mid to distal sigmoid acute diverticulitis redemonstrated. The contained leak extending inferiorly to the level of the uterine fundus has enlarged slightly at 5.5 x 2.5 cm versus 4.6 x 2.4 cm. And there is a new contained leak extending superiorly measuring 4.5 x 2.5 cm. The patient's prior exam only had some inflammatory thickening in this region before. Patient was initially scheduled for sigmoid colectomy with colostomy placement today. However, surgery was canceled due to abnormal labs. She had an INR elevated at 3.9, sodium 128 and potassium of 3.4 . WBC 17.8 She is afebrile. Patient has had increase in her left lower quadrant pain and she is asking for pain medication. Patient seen and examined with Dr. Orona. PHYSICAL EXAM: VITAL SIGNS: Reviewed. GENERAL: Well-developed in no acute distress. HEENT: No sclera icterus. Extraocular movements grossly intact. Moist buccal mucosa. Head is atraumatic, normocephalic. ABDOMEN: Soft. Nondistended. Tenderness with palpation of the left lower quadrant NEUROLOGIC: Alert and oriented. Cranial nerves II through XII grossly intact. ASSESSMENT: 1. Diverticulitis of the mid to distal sigmoid colon with perforation. Patient's CAT scan shows that the contained leak extending inferiorly to the level of the uterine fundus has enlarged slightly and a new contained leak extending superiorly is also noted. PLAN: -Patient is tentatively scheduled for sigmoid colectomy with colostomy placement on 01/16/[address] Oroan -Keep patient nothing by mouth for now -Continue IV antibiotics -Consult dietitian to order TPN -Consult interventional radiology to place PICC line -Patient is getting 1 unit of FFP and 10 mg of vitamin K to reverse INR -Morphine 4 mg every 2 hours as needed for pain Physician Spinning Machine Tender note has been reviewed by physician. Signing provider agrees with the documented findings, assessment, and plan of care. Objective - Vital Signs Vital signs: Vital Signs Temp 97.7 F 01/13/21 12:19 Pulse 75 01/13/21 12:19 Resp 16 01/13/21 12:19 BP 116/71 01/13/21 12:19 Pulse Ox 95 01/13/21 12:19 Intake & Output 01/12/21 01/13/21 01/13/21 18:59 06:59 18:59 Intake Total 1200 Output Total 1 Balance 1200 -1 Weight 72.575 kg Intake: Intake, IV Titration 1200 Amount Lactated Ringers 1,000 ml 1200 @ 100 mls/hr IV .Q10H [facility] Rx#:[id number] Output: Urine/Stool Mix 1 Other: Voiding Method Diaper Diaper Diaper # Voids 3 2 # Bowel Movements 1 - Labs CBC & Chem 7: 01/13/21 06:22 01/13/21 12:22 Labs: Abnormal Lab Results - Last 24 Hours (Table) 01/12/21 01/13/21 01/13/21 Range/Units 15:58 06:22 06:22 WBC 17.8 H (3.8-10.6) k/uL RBC 3.77 L (3.80-5.40) m/uL Neutrophils # 16.7 H (1.3-7.7) k/uL Lymphocytes # 0.4 L (1.0-4.8) k/uL PT (9.0-12.0) sec INR (<1.2) APTT (22.0-30.0) sec Sodium 126 L 128 L (137-145) mmol/L Potassium 3.4 L (3.5-5.1) mmol/L Chloride 93 L 93 L (98-107) mmol/L Carbon Dioxide 33 H (22-30) mmol/L BUN 18 H 18 H (7-17) mg/dL Glucose 105 H 68 L (74-99) mg/dL POC Glucose (mg/dL) (75-99) mg/dL Calcium 8.2 L 8.1 L (8.4-10.2) mg/dL Magnesium (1.6-2.3) mg/dL AST (14-36) U/L Total Protein (6.3-8.2) g/dL Albumin (3.5-5.0) g/dL 01/13/21 01/13/21 01/13/21 Range/Units 07:06 11:50 12:22 WBC (3.8-10.6) k/uL RBC (3.80-5.40) m/uL Neutrophils # (1.3-7.7) k/uL Lymphocytes # (1.0-4.8) k/uL PT 37.1 H (9.0-12.0) sec INR 3.9 H (<1.2) APTT 32.8 H (22.0-30.0) sec Sodium (137-145) mmol/L Potassium (3.5-5.1) mmol/L Chloride (98-107) mmol/L Carbon Dioxide (22-30) mmol/L BUN (7-17) mg/dL Glucose (74-99) mg/dL POC Glucose (mg/dL) 70 L 109 H (75-99) mg/dL Calcium (8.4-10.2) mg/dL Magnesium (1.6-2.3) mg/dL AST (14-36) U/L Total Protein (6.3-8.2) g/dL Albumin (3.5-5.0) g/dL 01/13/21 01/13/21 Range/Units 12:22 12:22 WBC (3.8-10.6) k/uL RBC (3.80-5.40) m/uL Neutrophils # (1.3-7.7) k/uL Lymphocytes # (1.0-4.8) k/uL PT (9.0-12.0) sec INR (<1.2) APTT (22.0-30.0) sec Sodium 128 L (137-145) mmol/L Potassium 3.4 L (3.5-5.1) mmol/L Chloride 91 L (98-107) mmol/L Carbon Dioxide 34 H (22-30) mmol/L BUN (7-17) mg/dL Glucose (74-99) mg/dL POC Glucose (mg/dL) (75-99) mg/dL Calcium 8.0 L (8.4-10.2) mg/dL Magnesium 1.5 L (1.6-2.3) mg/dL AST 43 H (14-36) U/L Total Protein 4.7 L (6.3-8.2) g/dL Albumin 2.5 L (3.5-5.0) g/dL Microbiology - Last 24 Hours (Table) 01/06/21 16:27 Blood Culture - Final Blood No Growth after 144 hours
[2021-01-13] MEDS: metroNIDAZOLE-NS PMX 500 MG in SALINE 1 100ML.BAG IVPB SCH (17:19)
[2021-01-13 17:23] LABS: Glucose,Whole Blood 66 mg/dL (75-99)
[2021-01-13] MEDS ORDERED: POTASSIUM CHLORIDE ER 20 MEQ TAB.ER PO STA (17:44)
[2021-01-13] MEDS ORDERED: DEXTROSE 4 GM CHEWABLE PO PRN (17:56)
[2021-01-13] MEDS: DEXTROSE 5%-0.9% NACL 1,000 ML IV SCH (17:57)
[2021-01-13 18:01] LABS: Glucose,Whole Blood 168 mg/dL (75-99)
[2021-01-13] MEDS: MAGNESIUM SULFATE-D5W PMX 1 GM in DEXTROSE/WATER 1 100ML.BAG IVPB SCH ×2 (18:09→19:59)
[2021-01-13 20:06] LABS: Glucose,Whole Blood 122 mg/dL (75-99)
[2021-01-13] MEDS: ZOLPIDEM 5 MG TAB PO SCH (21:35)
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
[2021-01-14] MEDS: LEVOFLOXACIN 500MG-D5W PMX 500 MG in DEXTROSE/WATER 1 100ML.BAG IVPB SCH (05:57)
[2021-01-14 06:28] LABS: Basophils % (A) 0 %; Eosinophils # (A) 0.1 k/uL (0-0.7); Eosinophils % (A) 1 %; HGB 10.7 gm/dL (11.4-16.0); Lymphocytes # (A) 0.3 k/uL (1.0-4.8); Lymphocytes % (A) 2 %; MCH 31.3 pg (25.0-35.0); MCHC 32.2 g/dL (31.0-37.0); MCV 97.2 fL (80.0-100.0); Mean Platelet Volume 7.5; Monocytes # (A) 0.5 k/uL (0-1.0); Monocytes % (A) 3 %; Neutrophils % (A) 94 %; Platelet Count 186 k/uL (150-450); RDW 14.1 % (11.5-15.5)
[2021-01-14 06:34] LABS: INR 1.2 (<1.2)
[2021-01-14 06:38] LABS: ALT <6 U/L (4-34); AST 36 U/L (14-36); African American GFR (CKD) >90 (>60 ml/min/1.73 sqM); Alkaline Phosphatase 45 U/L (38-126); Anion Gap 1 mmol/L; Blood Urea Nitrogen 14 mg/dL (7-17); Calcium 6.9 mg/dL (8.4-10.2); Carbon Dioxide 29 mmol/L (22-30); Chloride 100 mmol/L (98-107); Glucose 350 mg/dL (74-99); Magnesium 1.8 mg/dL (1.6-2.3); Non-African American GFR(CKD) 84 (>60 ml/min/1.73 sqM); Potassium 3.5 mmol/L (3.5-5.1); Sodium 130 mmol/L (137-145); Total Bilirubin 0.6 mg/dL (0.2-1.3)
[2021-01-14 07:24] LABS: Glucose,Whole Blood 119 mg/dL (75-99)
[2021-01-14] MEDS: metroNIDAZOLE-NS PMX 500 MG in SALINE 1 100ML.BAG IVPB SCH ×4 (08:45→23:57)
[2021-01-14] MEDS: METOPROLOL SUCCINATE (ER) 50 MG TAB.ER.24H PO SCH (08:46)
[2021-01-14] MEDS: amLODIPine 10 MG TAB PO SCH (08:46)
[2021-01-14] MEDS: PANTOPRAZOLE 40 MG TABLET PO SCH (08:46)
[2021-01-14] MEDS: LOSARTAN 50 MG TAB PO SCH (08:46)
[2021-01-14] MEDS: CARBIDOPA-LEVODOPA 25-100 MG 1 EACH TAB PO SCH ×4 (08:49→21:02)
[2021-01-14] MEDS: LEVOTHYROXINE 25 MCG TAB PO SCH (08:49)
[2021-01-14] MEDS: CITALOPRAM HYDROBROMIDE 10 MG TAB PO SCH (08:49)
[2021-01-14] MEDS: HYDROXYCHLOROQUINE SULFATE 200 MG TAB PO SCH ×2 (08:49→21:02)
--- NOTE | 2021-01-14 11:24 | P.PN ---
Subjective Progress Note Date: 01/14/21 Principal diagnosis: Diverticulitis Patient feels fairly well today. Complaining of some dysuria. Only mild abdominal pain. White blood cell count improved to 15. Hemoglobin 10.7. INR is 1.2. Objective - Vital Signs Vital signs: Vital Signs Temp 98.8 F 01/14/21 05:38 Pulse 66 01/14/21 05:38 Resp 14 01/14/21 05:38 BP 100/74 01/14/21 05:38 Pulse Ox 95 01/14/21 05:38 Intake & Output 01/13/21 01/14/21 01/14/21 18:59 06:59 18:59 Intake Total 312 Balance 312 Weight 72.575 kg Intake: Blood Product 312 Ffp 24 Cpd Unit 312 [id number] Other: Voiding Method Diaper Diaper # Voids 4 2 - Exam Abdomen: Soft, mild left lower quadrant tenderness, no rebound or guarding - Labs CBC & Chem 7: 01/14/21 05:50 01/14/21 05:50 Labs: Abnormal Lab Results - Last 24 Hours (Table) 01/13/21 01/13/21 01/13/21 Range/Units 11:50 12:22 12:22 WBC (3.8-10.6) k/uL RBC (3.80-5.40) m/uL Hgb (11.4-16.0) gm/dL Hct (34.0-46.0) % Neutrophils # (1.3-7.7) k/uL Lymphocytes # (1.0-4.8) k/uL PT 37.1 H (9.0-12.0) sec INR 3.9 H (<1.2) APTT 32.8 H (22.0-30.0) sec Sodium 128 L (137-145) mmol/L Potassium 3.4 L (3.5-5.1) mmol/L Chloride 91 L (98-107) mmol/L Carbon Dioxide 34 H (22-30) mmol/L Glucose (74-99) mg/dL POC Glucose (mg/dL) 109 H (75-99) mg/dL Calcium 8.0 L (8.4-10.2) mg/dL Magnesium (1.6-2.3) mg/dL AST 43 H (14-36) U/L Total Protein 4.7 L (6.3-8.2) g/dL Albumin 2.5 L (3.5-5.0) g/dL 01/13/21 01/13/21 01/13/21 Range/Units 12:22 17:21 17:59 WBC (3.8-10.6) k/uL RBC (3.80-5.40) m/uL Hgb (11.4-16.0) gm/dL Hct (34.0-46.0) % Neutrophils # (1.3-7.7) k/uL Lymphocytes # (1.0-4.8) k/uL PT (9.0-12.0) sec INR (<1.2) APTT (22.0-30.0) sec Sodium (137-145) mmol/L Potassium (3.5-5.1) mmol/L Chloride (98-107) mmol/L Carbon Dioxide (22-30) mmol/L Glucose (74-99) mg/dL POC Glucose (mg/dL) 66 L 168 H (75-99) mg/dL Calcium (8.4-10.2) mg/dL Magnesium 1.5 L (1.6-2.3) mg/dL AST (14-36) U/L Total Protein (6.3-8.2) g/dL Albumin (3.5-5.0) g/dL 01/13/21 01/14/21 01/14/21 Range/Units 20:04 05:50 05:50 WBC 15.0 H (3.8-10.6) k/uL RBC 3.40 L (3.80-5.40) m/uL Hgb 10.7 L (11.4-16.0) gm/dL Hct 33.0 L (34.0-46.0) % Neutrophils # 14.0 H (1.3-7.7) k/uL Lymphocytes # 0.3 L (1.0-4.8) k/uL PT (9.0-12.0) sec INR 1.2 H (<1.2) APTT (22.0-30.0) sec Sodium (137-145) mmol/L Potassium (3.5-5.1) mmol/L Chloride (98-107) mmol/L Carbon Dioxide (22-30) mmol/L Glucose (74-99) mg/dL POC Glucose (mg/dL) 122 H (75-99) mg/dL Calcium (8.4-10.2) mg/dL Magnesium (1.6-2.3) mg/dL AST (14-36) U/L Total Protein (6.3-8.2) g/dL Albumin (3.5-5.0) g/dL 01/14/21 01/14/21 Range/Units 05:50 07:22 WBC (3.8-10.6) k/uL RBC (3.80-5.40) m/uL Hgb (11.4-16.0) gm/dL Hct (34.0-46.0) % Neutrophils # (1.3-7.7) k/uL Lymphocytes # (1.0-4.8) k/uL PT (9.0-12.0) sec INR (<1.2) APTT (22.0-30.0) sec Sodium 130 L (137-145) mmol/L Potassium (3.5-5.1) mmol/L Chloride (98-107) mmol/L Carbon Dioxide (22-30) mmol/L Glucose 350 H (74-99) mg/dL POC Glucose (mg/dL) 119 H (75-99) mg/dL Calcium 6.9 L (8.4-10.2) mg/dL Magnesium (1.6-2.3) mg/dL AST (14-36) U/L Total Protein 4.0 L (6.3-8.2) g/dL Albumin 2.0 L (3.5-5.0) g/dL Assessment and Plan (1) Diverticulitis Narrative/Plan: Patient doing well today. Continue antibiotics. Begin liquid diet. Surgery planned for Saturday. Current Visit: Yes Status: Acute Code(s): K57.92 - DVTRCLI OF INTEST, PART UNSP, W/O PERF OR ABSCESS W/O BLEED SNOMED Code(s): 720072048
[2021-01-14 11:56] LABS: Glucose,Whole Blood 100 mg/dL (75-99)
[2021-01-14] MEDS: DEXTROSE 5%-0.9% NACL 1,000 ML IV SCH (14:09)
[2021-01-14] MEDS ORDERED: POTASSIUM CHLORIDE ER 10 MEQ TAB.ER.PRT PO STA (15:17)
[2021-01-14] MEDS: POTASSIUM CHLORIDE ER 20 MEQ TAB.ER PO SCH ×2 (17:52→18:42)
[2021-01-14 17:55] LABS: Glucose,Whole Blood 115 mg/dL (75-99)
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
[2021-01-14 20:19] LABS: Glucose,Whole Blood 103 mg/dL (75-99)
[2021-01-14] MEDS: ZOLPIDEM 5 MG TAB PO SCH (21:03)
[2021-01-14] MEDS: SODIUM CHLORIDE TAB 1 GM TAB PO SCH (21:40)
[2021-01-15] MEDS: MORPHINE SULFATE 4 MG/ML SYRINGE IVP PRN ×2 (03:28→15:41)
[2021-01-15] MEDS: SODIUM CHLORIDE TAB 1 GM TAB PO SCH ×4 (04:25→20:52)
[2021-01-15] MEDS: LEVOFLOXACIN 500MG-D5W PMX 500 MG in DEXTROSE/WATER 1 100ML.BAG IVPB SCH (05:48)
[2021-01-15 06:27] LABS: Ionized Calcium 4.9 mg/dL (4.5-5.3)
[2021-01-15 06:32] LABS: African American GFR (CKD) >90 (>60 ml/min/1.73 sqM); Anion Gap 1 mmol/L; Blood Urea Nitrogen 11 mg/dL (7-17); Calcium 7.9 mg/dL (8.4-10.2); Carbon Dioxide 29 mmol/L (22-30); Chloride 98 mmol/L (98-107); Glucose 124 mg/dL (74-99); Magnesium 1.7 mg/dL (1.6-2.3); Non-African American GFR(CKD) 83 (>60 ml/min/1.73 sqM); Phosphorus 2.1 mg/dL (2.5-4.5); Potassium 4.2 mmol/L (3.5-5.1); Sodium 128 mmol/L (137-145); Triglycerides 58 mg/dL (<150)
[2021-01-15 07:37] LABS: Glucose,Whole Blood 105 mg/dL (75-99)
[2021-01-15] MEDS: metroNIDAZOLE-NS PMX 500 MG in SALINE 1 100ML.BAG IVPB SCH ×3 (08:50→23:29)
[2021-01-15] MEDS: LOSARTAN 50 MG TAB PO SCH (08:51)
[2021-01-15] MEDS: amLODIPine 10 MG TAB PO SCH (08:51)
[2021-01-15] MEDS: METOPROLOL SUCCINATE (ER) 50 MG TAB.ER.24H PO SCH (08:51)
[2021-01-15] MEDS: PANTOPRAZOLE 40 MG TABLET PO SCH (08:51)
[2021-01-15] MEDS: LEVOTHYROXINE 25 MCG TAB PO SCH (08:52)
[2021-01-15] MEDS: CARBIDOPA-LEVODOPA 25-100 MG 1 EACH TAB PO SCH ×4 (08:52→20:51)
[2021-01-15] MEDS: HYDROXYCHLOROQUINE SULFATE 200 MG TAB PO SCH ×2 (08:52→20:51)
[2021-01-15] MEDS: CITALOPRAM HYDROBROMIDE 10 MG TAB PO SCH (08:52)
--- NOTE | 2021-01-15 11:36 | P.PN ---
Subjective Progress Note Date: 01/15/21 Principal diagnosis: Diverticulitis Patient without new complaints. Tolerating liquids. T-max 99.2. Dysuria improved. Today's labs pending. Objective - Vital Signs Vital signs: Vital Signs Temp 98.7 F 01/15/21 04:38 Pulse 75 01/15/21 04:38 Resp 16 01/15/21 04:38 BP 127/74 01/15/21 04:38 Pulse Ox 93 L 01/15/21 04:38 Intake & Output 01/14/21 01/15/21 01/15/21 18:59 06:59 18:59 Weight 72.575 kg Other: Voiding Method Diaper # Voids 2 2 # Bowel Movements 1 1 - Exam Abdomen: Soft, nondistended, mild left lower quadrant tenderness - Labs CBC & Chem 7: 01/14/21 05:50 01/15/21 05:54 Labs: Abnormal Lab Results - Last 24 Hours (Table) 01/14/21 01/14/21 01/14/21 Range/Units 11:51 17:55 20:18 Sodium (137-145) mmol/L Glucose (74-99) mg/dL POC Glucose (mg/dL) 100 H 115 H 103 H (75-99) mg/dL Calcium (8.4-10.2) mg/dL Phosphorus (2.5-4.5) mg/dL 01/15/21 01/15/21 Range/Units 05:54 07:35 Sodium 128 L (137-145) mmol/L Glucose 124 H (74-99) mg/dL POC Glucose (mg/dL) 105 H (75-99) mg/dL Calcium 7.9 L (8.4-10.2) mg/dL Phosphorus 2.1 L (2.5-4.5) mg/dL Assessment and Plan (1) Diverticulitis Narrative/Plan: Continue clear liquid diet. Nothing eat or drink after midnight. Patient scheduled for elective resection tomorrow. Correct hypophosphatemia. Current Visit: Yes Status: Acute Code(s): K57.92 - DVTRCLI OF INTEST, PART UNSP, W/O PERF OR ABSCESS W/O BLEED SNOMED Code(s): 796369232
[2021-01-15] MEDS: SODIUM PHOSPHATE 10 MMOL in SODIUM CHLORIDE 0.9% 250 ML IVPB SCH ×2 (12:16→14:29)
[2021-01-15] MEDS: DEXTROSE 5%-0.9% NACL 1,000 ML IV SCH (12:16)
[2021-01-15 12:32] LABS: Glucose,Whole Blood 98 mg/dL (75-99)
[2021-01-15 17:43] LABS: Glucose,Whole Blood 108 mg/dL (75-99)
[2021-01-15 20:31] LABS: Glucose,Whole Blood 306 mg/dL (75-99)
[2021-01-15] MEDS: ZOLPIDEM 5 MG TAB PO SCH (20:52)
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
[2021-01-16] MEDS: LEVOFLOXACIN 500MG-D5W PMX 500 MG in DEXTROSE/WATER 1 100ML.BAG IVPB SCH (04:40)
[2021-01-16 05:25] LABS: Basophils % (A) 0 %; Eosinophils # (A) 0.1 k/uL (0-0.7); Eosinophils % (A) 1 %; HCT 33.5 % (34.0-46.0); Lymphocytes # (A) 0.4 k/uL (1.0-4.8); Lymphocytes % (A) 3 %; MCH 31.2 pg (25.0-35.0); MCV 94.8 fL (80.0-100.0); Mean Platelet Volume 7.8; Monocytes # (A) 0.6 k/uL (0-1.0); Monocytes % (A) 4 %; Neutrophils # (A) 12.1 k/uL (1.3-7.7); Neutrophils % (A) 91 %; Platelet Count 199 k/uL (150-450); RBC 3.53 m/uL (3.80-5.40); RDW 14.2 % (11.5-15.5); WBC 13.3 k/uL (3.8-10.6)
[2021-01-16 05:39] LABS: African American GFR (CKD) >90 (>60 ml/min/1.73 sqM); Anion Gap 1 mmol/L; Blood Urea Nitrogen 10 mg/dL (7-17); Calcium 7.8 mg/dL (8.4-10.2); Carbon Dioxide 30 mmol/L (22-30); Chloride 97 mmol/L (98-107); Glucose 140 mg/dL (74-99); Magnesium 1.6 mg/dL (1.6-2.3); Non-African American GFR(CKD) 84 (>60 ml/min/1.73 sqM); Phosphorus 2.6 mg/dL (2.5-4.5); Potassium 3.9 mmol/L (3.5-5.1); Sodium 128 mmol/L (137-145)
[2021-01-16 05:51] LABS: INR 1.1 (<1.2); Prothrombin Time 11.5 sec (9.0-12.0)
[2021-01-16 07:48] LABS: Glucose,Whole Blood 108 mg/dL (75-99)
[2021-01-16] MEDS: metroNIDAZOLE-NS PMX 500 MG in SALINE 1 100ML.BAG IVPB SCH ×3 (08:03→23:34)
[2021-01-16] MEDS: DEXTROSE 5%-0.9% NACL 1,000 ML IV SCH (08:10)
[2021-01-16] MEDS: MORPHINE SULFATE 4 MG/ML SYRINGE IVP PRN (08:13)
[2021-01-16] MEDS: METOPROLOL SUCCINATE (ER) 50 MG TAB.ER.24H PO SCH (08:13)
[2021-01-16 10:26] LABS: Glucose,Whole Blood 119 mg/dL (75-99)
[2021-01-16] MEDS ORDERED: IV FLUID CONTINUATION 950 ML IV ONE (10:37)
[2021-01-16] MEDS: ONDANSETRON 4 MG/2 ML VIAL IVP PRN ×2 (11:00→14:46)
[2021-01-16] MEDS ORDERED: fentaNYL (PF) 50 MCG/ML 2 ML AMP ONE (11:36)
[2021-01-16] MEDS ORDERED: NEOSTIGMINE 1 MG/ML 10 ML VIAL ONE (11:36)
[2021-01-16] MEDS ORDERED: SUCCINYLCHOLINE CHLORIDE 100 MG/5 ML SYR IV ONE (11:36)
[2021-01-16] MEDS ORDERED: ETOMIDATE 2 MG/ML 10 ML VIAL ONE (11:36)
[2021-01-16] MEDS ORDERED: LIDOCAINE 1% INJ 10MG/ML (20 ML MDV) ONE (11:36)
[2021-01-16] MEDS ORDERED: GLYCOPYRROLATE 0.2 MG/ML 2 ML VIAL ONE (11:36)
[2021-01-16] MEDS ORDERED: ROCURONIUM 10 MG/ML (5 ML VIAL) IV ONE (11:36)
[2021-01-16] MEDS ORDERED: SODIUM CHLORIDE 0.9% 100 ML with ceFAZolin 2,000 MG IV ONE ×2 (11:46)
[2021-01-16] MEDS ORDERED: METOCLOPRAMIDE 5 MG/ML 2 ML VIAL IVP PRN (13:59)
[2021-01-16] MEDS ORDERED: BENZOCAINE/MENTHOL LOZENG 1 EACH LOZENGE MUCOUS MEM PRN (13:59)
[2021-01-16] MEDS: LEVOTHYROXINE 25 MCG TAB PO SCH (14:38)
[2021-01-16] MEDS: SODIUM CHLORIDE TAB 1 GM TAB PO SCH ×3 (14:38→21:22)
[2021-01-16] MEDS: CITALOPRAM HYDROBROMIDE 10 MG TAB PO SCH (14:38)
[2021-01-16] MEDS: HYDROXYCHLOROQUINE SULFATE 200 MG TAB PO SCH ×2 (14:38→21:22)
[2021-01-16] MEDS: CARBIDOPA-LEVODOPA 25-100 MG 1 EACH TAB PO SCH ×4 (14:38→21:22)
[2021-01-16] MEDS: PANTOPRAZOLE 40 MG TABLET PO SCH (14:39)
[2021-01-16] MEDS: LOSARTAN 50 MG TAB PO SCH (14:39)
[2021-01-16] MEDS: amLODIPine 10 MG TAB PO SCH (14:39)
[2021-01-16] MEDS ORDERED: HYDROmorphone 0.5 MG/0.5 ML SYRINGE IVP ONE (14:40)
[2021-01-16] MEDS: KETOROLAC 15 MG/ML 1 ML VIAL IVP PRN ×2 (14:44→20:37)
[2021-01-16] MEDS ORDERED: LACTATED RINGERS 1,000 ML IV ONE ×3 (14:48)
--- NOTE | 2021-01-16 15:19 | P.OP ---
Date of Procedure: 01/16/21 Preoperative Diagnosis: Perforated viscus Postoperative Diagnosis: Diverticulitis with pelvic abscess Procedure(s) Performed: Sigmoid colectomy with end colostomy Excision of left fallopian tube Anesthesia: MONO Surgeon: Jonny Orona Estimated Blood Loss (ml): 100 Pathology: other (Sigmoid colon, culture) Condition: stable Disposition: PACU Description of Procedure: The patient's placed on the operative table in supine position. She received general tube anesthesia. Her abdomen was prepped and draped usual fashion. The abdomen was entered through a low midline incision. The Bookwalter tract with wound. The abdomen explored. There was inflammatory mass in the sigmoid colon. The small bowel was adherent to the;. Sigmoid colon. The small bowel adhesions were lysed with sharp dissection. There was an abscess in the pelvis. The abscess cavity was entered by mobilizing the sigmoid colon off of the uterus. Approximately 40 mL. Fluid was present. This was cultured and then aspirated. The distal sigmoid colon was very inflamed. These; was transected proximally with the linear stapler. And then the mesentery the bowel was freed and the colon was mobilized by dividing the white line of Toldt. The mesentery the; was then divided between Elke clamps and 0 silk ties the Enseal device was also used. The rectum was transected with the contour stapler. A 3-0 Prolene stitch was placed on the rectal stump. The abdomen was irrigated no bleeding was seen. A RAJENDRA drains placed in the pelvis and brought out through the right upper quadrant. A suitable spot for the colostomy was found in the left periumbilical area. The fascia was closed with looped #1 PDS suture. Skin was closed jesse. The colostomy then matured with 3-0 Vicryl suture. Patient top she will was sent to recovery room in stable condition.
[2021-01-16] MEDS ORDERED: ALBUMIN HUMAN 5% (12.5gm) 250 ML BOTTLE IVPB ONE (15:33)
[2021-01-16 17:22] LABS: African American GFR (CKD) >90 (>60 ml/min/1.73 sqM); Anion Gap 3 mmol/L; Blood Urea Nitrogen 10 mg/dL (7-17); Calcium 7.4 mg/dL (8.4-10.2); Carbon Dioxide 24 mmol/L (22-30); Chloride 100 mmol/L (98-107); Glucose 171 mg/dL (74-99); Non-African American GFR(CKD) 86 (>60 ml/min/1.73 sqM); Potassium 3.8 mmol/L (3.5-5.1); Sodium 127 mmol/L (137-145)
[2021-01-16] MEDS: D5-0.45% NACL WITH KCL 20MEQ/L 1,000 ML IV SCH ×2 (17:41→23:55)
[2021-01-16 17:46] LABS: Basophils % (A) 0 %; Eosinophils # (A) 0.1 k/uL (0-0.7); Eosinophils % (A) 1 %; HCT 29.9 % (34.0-46.0); HGB 9.8 gm/dL (11.4-16.0); Lymphocytes # (A) 0.4 k/uL (1.0-4.8); Lymphocytes % (A) 3 %; MCH 31.5 pg (25.0-35.0); MCHC 32.8 g/dL (31.0-37.0); Mean Platelet Volume 8.4; Monocytes # (A) 0.5 k/uL (0-1.0); Monocytes % (A) 3 %; Neutrophils # (A) 13.2 k/uL (1.3-7.7); Neutrophils % (A) 93 %; Platelet Count 172 k/uL (150-450); RBC 3.12 m/uL (3.80-5.40); RDW 14.1 % (11.5-15.5); WBC 14.2 k/uL (3.8-10.6)
[2021-01-16] MEDS: CEFEPIME 2 GM in SODIUM CHLORIDE 0.9% 100 ML IVPB SCH ×2 (18:01→19:02)
[2021-01-16] MEDS: FAMOTIDINE 20 MG/2 ML VIAL IV SCH (20:37)
[2021-01-16] MEDS: ZOLPIDEM 5 MG TAB PO SCH (20:37)
--- NOTE | 2021-01-16 23:29 | CONS ---
CONSULTATION DATE OF SERVICE: 01/16/2021 REASON FOR CONSULTATION: Perforated diverticulitis, abdominal abscess. HISTORY OF PRESENT ILLNESS: The patient is an 80-year-old female admitted to the hospital about 10 days ago when the patient presented on January 06, 2021, with abdominal pain. Patient's pain has been mostly in the left lower abdominal area. The patient did have a CT of abdomen and pelvis completed with evidence of diverticulitis. The patient apparently received a dose of Zosyn. However, she has developed a rash, even though the patient has previously tolerated penicillin without any problem. The Zosyn was discontinued and the patient will be treated with Levaquin and Flagyl. The patient seemed to have worsening of her symptoms, for which the patient was taken to the OR today, and the patient is status post laparotomy for perforated diverticulitis and diverting colostomy; also with excision of the left fallopian tube. Abdominal culture has been obtained. Infectious Disease was consulted for management of antibiotic therapy because of her MULTIPLE ANTIBIOTIC ALLERGIES. The patient was seen post surgery and was slightly sleepy and lethargic and recovering from the anesthesia. The patient specifically denies having any chest pain. Some nausea but no vomiting , abdominal pain is mostly sharp to dull and aching, 4 to 5 out of 10, and no radiation. REVIEW OF SYSTEMS: Positive points have been mentioned in the HPI. Rest of the systems are negative. PAST MEDICAL HISTORY: Atrial fibrillation, coronary artery disease, hyperlipidemia, hypertension, osteoarthritis, seizure disorder, hypothyroidism. PAST SURGICAL HISTORY: Adenoidectomy, appendectomy, tonsillectomy, bilateral breast biopsy, steroid injections to the back and sinus surgery. SOCIAL HISTORY: No smoking, drinking or drug use. FAMILY HISTORY: Mother from complications of anorexia. Father with history of hyperlipidemia. ALLERGIES: MULTIPLE MEDICATIONS as listed and reviewed. MEDICATIONS: Currently the patient is on Tylenol, Norvasc, Sinemet, Celexa, Flexeril, Benadryl, Pepcid, Neurontin, Plaquenil, Toradol, Levaquin, Cozaar, Reglan, Toprol-XL, Flagyl, Narcan, Zofran, Protonix. PHYSICAL EXAMINATION: Blood pressure is 104/66, pulse of 74, temperature 98.3. She is 92% on room air. General description is an elderly female lying in bed in no distress. No tachypnea or accessory muscle of respiration use. HEENT: Examination shows slight pallor. No scleral icterus. Oral mucous membrane is dry. No pharyngeal erythema or thrush. NECK: Trachea is central. No thyromegaly. LUNGS: Unlabored breathing. Decreased breath sounds at the base. No wheeze. HEART: S1, S2. Regular rate and rhythm. ABDOMEN: Soft. She is tender to touch. No guarding or rigidity. EXTREMITIES: No edema of the feet. SKIN EXAMINATION: No rash or mass palpable. Neurologically the patient is awake, alert, oriented x3. Mood and affect normal. LABS: Hemoglobin is 9.8, white count of 14.2, BUN of 10, creatinine 0.60. Abdominal cultures currently pending. DIAGNOSTIC IMPRESSION AND PLAN: 1. Patient with acute complicated diverticulitis with perforation in this patient who is status post laparotomy and diverting colostomy, failing conservative treatment with IV antibiotic therapy. 2. Patient with a drug rash and antibiotic allergy that will limit the number of antibiotics safe to use. PLAN: 1. Discontinue Levaquin. The patient has failed Levaquin therapy. 2. Will start the patient on cefepime 2 grams q.12. Continue with Flagyl. 3. Will follow her clinical condition and culture to further adjust medication if needed. Thank you for this consultation. Will follow this patient along with you. Family at the bedside. Questions were answered. MMODL / IJN: [id number] / MTDD
[2021-01-17] MEDS: KETOROLAC 15 MG/ML 1 ML VIAL IVP PRN ×4 (02:47→22:10)
[2021-01-17] MEDS: CEFEPIME 2 GM in SODIUM CHLORIDE 0.9% 100 ML IVPB SCH ×2 (05:50→16:57)
[2021-01-17 07:10] LABS: Glucose,Whole Blood 167 mg/dL (75-99)
[2021-01-17] MEDS: LEVOTHYROXINE 25 MCG TAB PO SCH (08:12)
[2021-01-17] MEDS: LOSARTAN 50 MG TAB PO SCH (08:12)
[2021-01-17] MEDS: HYDROXYCHLOROQUINE SULFATE 200 MG TAB PO SCH ×2 (08:12→20:51)
[2021-01-17] MEDS: SODIUM CHLORIDE TAB 1 GM TAB PO SCH ×3 (08:12→22:11)
[2021-01-17] MEDS: ALVIMOPAN 12 MG CAPSULE PO SCH ×2 (08:12→20:51)
[2021-01-17] MEDS: CARBIDOPA-LEVODOPA 25-100 MG 1 EACH TAB PO SCH ×4 (08:13→22:11)
[2021-01-17] MEDS: PANTOPRAZOLE 40 MG TABLET PO SCH (08:13)
[2021-01-17] MEDS: CITALOPRAM HYDROBROMIDE 10 MG TAB PO SCH (08:13)
[2021-01-17] MEDS: D5-0.45% NACL WITH KCL 20MEQ/L 1,000 ML IV SCH ×3 (08:13→23:42)
[2021-01-17] MEDS: amLODIPine 10 MG TAB PO SCH (08:13)
[2021-01-17] MEDS: METOPROLOL SUCCINATE (ER) 50 MG TAB.ER.24H PO SCH (08:13)
[2021-01-17] MEDS: FAMOTIDINE 20 MG/2 ML VIAL IV SCH ×2 (08:14→20:50)
[2021-01-17] MEDS: metroNIDAZOLE-NS PMX 500 MG in SALINE 1 100ML.BAG IVPB SCH ×3 (08:14→23:38)
[2021-01-17 08:54] LABS: Basophils % (A) 0 %; Eosinophils # (A) 0.1 k/uL (0-0.7); Eosinophils % (A) 1 %; Hypochromasia Slight; Lymphocytes # (A) 0.2 k/uL (1.0-4.8); Lymphocytes % (A) 3 %; MCH 31.7 pg (25.0-35.0); MCHC 31.7 g/dL (31.0-37.0); MCV 100.1 fL (80.0-100.0); Macrocytosis Slight; Monocytes # (A) 0.5 k/uL (0-1.0); Monocytes % (A) 7 %; Neutrophils # (A) 7.4 k/uL (1.3-7.7); Neutrophils % (A) 89 %; Platelet Count 107 k/uL (150-450); RBC 1.88 m/uL (3.80-5.40); RDW 14.5 % (11.5-15.5); WBC 8.3 k/uL (3.8-10.6)
[2021-01-17 08:59] LABS: HCT 18.8 % (34.0-46.0)
[2021-01-17 11:21] LABS: Glucose,Whole Blood 139 mg/dL (75-99)
--- NOTE | 2021-01-17 11:30 | P.PN ---
Subjective Progress Note Date: 01/17/21 CHIEF COMPLAINT: Abdominal pain HISTORY OF PRESENT ILLNESS: Patient is postop day #1 status post sigmoid colectomy with end colostomy and excision of left fallopian tube for diverticulitis with pelvic abscess. She reports that her pain is controlled. She denies any nausea or vomiting. She scheduled for PICC line placement today to start TPN. Infectious diseases adjusted antibiotics they've added cefepime and continued Flagyl. She remains nothing by mouth. Afebrile. WBC has normalized to 8.3 hemoglobin 6.0 platelets 107 BMP is pending. Patient is receiving 1 unit of blood for hemoglobin of 6. Estimated blood loss during surgery was 100 mL Patient seen and examined with Dr. Orona. PHYSICAL EXAM: VITAL SIGNS: Reviewed. GENERAL: Well-developed in no acute distress. HEENT: No sclera icterus. Extraocular movements grossly intact. Moist buccal mucosa. Head is atraumatic, normocephalic. ABDOMEN: Soft. Dressing clean dry and intact. Patient's colostomy bag does have bloody stool present. NEUROLOGIC: Alert and oriented. Cranial nerves II through XII grossly intact. ASSESSMENT: 1. Diverticulitis with pelvic abscess status post sigmoid colectomy with end colostomy and excision of left fallopian tube 2. Anemia PLAN: -Type and cross and transfuse 1 unit of blood for hemoglobin of 6 -Keep patient nothing by mouth for now -Continue IV antibiotics per ID -Patient scheduled for PICC line placement and to start TPN today -Continue pain medication as needed -Continue IV fluids -Hyponatremia treatment per medicine service -Encouraged patient to increase activity and to use incentive spirometer -GI prophylaxis Protonix and DVT prophylaxis SCDs Physician Director Pharmacy Services note has been reviewed by physician. Signing provider agrees with the documented findings, assessment, and plan of care. Objective - Vital Signs Vital signs: Vital Signs Temp 97.9 F 01/17/21 05:10 Pulse 86 01/17/21 05:10 Resp 16 01/17/21 05:10 BP 120/71 01/17/21 05:10 Pulse Ox 95 01/17/21 05:10 Intake & Output 01/16/21 01/17/21 01/17/21 18:59 06:59 18:59 Intake Total 1550 0 Output Total 560 250 50 Balance 990 -250 -50 Weight 72.575 kg Intake: IV 1550 Oral 0 Output: Drainage 60 50 Right Abdomen 60 50 Urine 400 200 Stool 50 Estimated Blood Loss 100 Other: Voiding Method Diaper Indwelling Catheter Indwelling Catheter # Voids 1 - Labs CBC & Chem 7: 01/17/21 08:33 01/16/21 16:15 Labs: Abnormal Lab Results - Last 24 Hours (Table) 01/16/21 01/16/21 01/17/21 Range/Units 16:15 16:15 07:09 WBC 14.2 H (3.8-10.6) k/uL RBC 3.12 L (3.80-5.40) m/uL Hgb 9.8 L (11.4-16.0) gm/dL Hct 29.9 L (34.0-46.0) % MCV (80.0-100.0) fL Plt Count (150-450) k/uL Neutrophils # 13.2 H (1.3-7.7) k/uL Lymphocytes # 0.4 L (1.0-4.8) k/uL Sodium 127 L (137-145) mmol/L Glucose 171 H (74-99) mg/dL POC Glucose (mg/dL) 167 H (75-99) mg/dL Calcium 7.4 L (8.4-10.2) mg/dL Crossmatch 01/17/21 01/17/21 Range/Units 08:33 09:08 WBC (3.8-10.6) k/uL RBC 1.88 L (3.80-5.40) m/uL Hgb 6.0 L* D (11.4-16.0) gm/dL Hct 18.8 L* (34.0-46.0) % MCV 100.1 H (80.0-100.0) fL Plt Count 107 L (150-450) k/uL Neutrophils # (1.3-7.7) k/uL Lymphocytes # 0.2 L (1.0-4.8) k/uL Sodium (137-145) mmol/L Glucose (74-99) mg/dL POC Glucose (mg/dL) (75-99) mg/dL Calcium (8.4-10.2) mg/dL Crossmatch See Detail Microbiology - Last 24 Hours (Table) 01/16/21 12:31 Gram Stain - Preliminary Other - Other Wound Culture - Preliminary Genia albicans 03/22/21 12:31 Gram Stain - Preliminary Other - Other Wound Culture - Preliminary Genia albicans 01/16/21 12:31 Anaerobic Culture - Preliminary Other - Other 01/16/21 12:31 Anaerobic Culture - Preliminary Other - Other
[2021-01-17 11:52] LABS: African American GFR (CKD) >90 (>60 ml/min/1.73 sqM); Anion Gap 4 mmol/L; Blood Urea Nitrogen 12 mg/dL (7-17); Calcium 7.5 mg/dL (8.4-10.2); Carbon Dioxide 23 mmol/L (22-30); Chloride 101 mmol/L (98-107); Glucose 117 mg/dL (74-99); Magnesium 1.4 mg/dL (1.6-2.3); Non-African American GFR(CKD) 87 (>60 ml/min/1.73 sqM); Potassium 3.9 mmol/L (3.5-5.1); Sodium 128 mmol/L (137-145)
[2021-01-17] MEDS ORDERED: LIDOCAINE 1% INJ 10MG/ML (20 ML MDV) ONE (12:51)
[2021-01-17] MEDS ORDERED: HEPARIN SODIUM 1,000 UN/ML (10ML VL) ONE (12:55)
[2021-01-17] MEDS ORDERED: LIDOCAINE 1% INJ 10MG/ML (20 ML MDV) SQ ONE (13:15)
--- NOTE | 2021-01-17 13:18 | US ---
EXAMINATION TYPE: US venous doppler duplex LE RT DATE OF EXAM: 01/17/2021 12:55 PM COMPARISON: NONE CLINICAL HISTORY: r/o dvt. Right-sided pain and swelling SIDE PERFORMED: Right TECHNIQUE: The lower extremity deep venous system is examined utilizing real time linear array sonog linus with graded compression, doppler sonography and color-flow sonography. VESSELS IMAGED: Common Femoral Vein Deep Femoral Vein Greater Saphenous Vein * Femoral Vein Popliteal Vein Small Saphenous Vein * Proximal Calf Veins (* superficial vessels) Right Leg: Negative for DVT Grayscale, color doppler, spectral doppler imaging performed of the deep veins of the right lower ext remity. There is normal flow, compressibility, vascular waveforms. IMPRESSION: No ultrasound evidence for acute DVT in the right lower extremity.
--- NOTE | 2021-01-17 14:07 | IR ---
PICC LINE PLACEMENT: HISTORY: TPN PROCEDURE: Ultrasound and fluoroscopic guidance of PICC line placement. COMPLICATIONS: None ANESTHESIA: 1. 1% Lidocaine locally. FINDINGS/TECHNIQUE: The procedure was explained to the patient. The risks, complications, benefits and alternatives were discussed and any questions were answered. Informed consent was obtained. The patient was placed supine on the fluoroscopic table and prepped and draped in the usual sterile fash ion. Utilizing a 21 gauge needle and sonographic and fluoroscopic guidance, access in the right bas ilic vein was achieved and there is placement of a 0.018 guidewire. The vein is patent. A 4-F sheat h was placed over the guidewire. The guidewire and dilator were removed and a 4-F. PICC line was yinka royce through the sheath with the tip at the level of the SVC. The sheath was removed, the catheter wa s flushed and sutured into position. The patient was stable throughout the procedure and remained st able upon discharge from the Department of Radiology. The vein puncture was patent under ultrasound. A chapman scale image was obtained to document patency of the vein punctured. All elements of the maximal barrier technique were utilized. FLUOROSCOPY TIME: 0.1 minute and one image submitted IMPRESSION: Successful PICC line placement under ultrasound and fluoroscopic guidance.
[2021-01-17] MEDS: SODIUM PHOSPHATE 10 MMOL in SODIUM CHLORIDE 0.9% 250 ML IVPB SCH ×2 (14:56→18:58)
[2021-01-17] MEDS ORDERED: MVI, ADULT NO.4 WITH VIT K 10 ML, TRACE (CONC-1ML/DOSE) 1 ML, SODIUM ACETATE 20 MEQ in ... IV SCH ×4 (15:00)
[2021-01-17] MEDS: MAGNESIUM SULFATE-D5W PMX 1 GM in DEXTROSE/WATER 1 100ML.BAG IVPB SCH ×2 (15:27→16:54)
[2021-01-17 17:12] LABS: Glucose,Whole Blood 114 mg/dL (75-99)
[2021-01-17 20:09] LABS: Glucose,Whole Blood 133 mg/dL (75-99)
[2021-01-17] MEDS: ZOLPIDEM 5 MG TAB PO SCH (20:51)
[2021-01-17] MEDS ORDERED: ANIDULAFUNGIN 200 MG in SODIUM CHLORIDE 0.9% 200 ML IVPB ONE (23:18)
[2021-01-18 00:02] LABS: Glucose,Whole Blood 162 mg/dL (75-99)
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
--- NOTE | 2021-01-18 01:38 | PN ---
PROGRESS NOTE DATE OF SERVICE: 01/17/2021 REASON FOR FOLLOWUP: Perforated diverticulitis. INTERVAL HISTORY: The patient is currently afebrile. The patient is breathing comfortably. Abdominal pain is currently controlled. Denies having any chest pain, shortness of breath. Occasional cough. No nausea, no vomiting. PHYSICAL EXAMINATION: Blood pressure 129/80 with a pulse of 75, temperature 98.7. She is 99% on room air. General description is an elderly female lying in bed in no distress. Respiratory system: Unlabored breathing. Decreased intensity of breath sounds. No wheeze. Heart S1, S2. Regular rate and rhythm. Abdomen: Soft. Mildly tender. No guarding. No rigidity. LABS: White count down to 8.3, hemoglobin also down to 6. Abdominal cultures currently pending. DIAGNOSTIC IMPRESSION AND PLAN: Patient with perforated diverticulitis status post diverting colostomy and drainage of the abscess. Abdominal culture now showing Genia. Patient is on Celexa, Plaquenil, that will contraindicate the use of Diflucan. Hence, we will add Eraxis and we will monitor her clinical course closely. MMODL / IJN: [id number] /
[2021-01-18] MEDS: CEFEPIME 2 GM in SODIUM CHLORIDE 0.9% 100 ML IVPB SCH ×2 (05:12→19:56)
[2021-01-18] MEDS: KETOROLAC 15 MG/ML 1 ML VIAL IVP PRN (05:13)
[2021-01-18 06:44] LABS: Glucose,Whole Blood 129 mg/dL (75-99)
[2021-01-18] MEDS: FAMOTIDINE 20 MG/2 ML VIAL IV SCH ×2 (08:17→19:56)
[2021-01-18] MEDS: METOPROLOL SUCCINATE (ER) 50 MG TAB.ER.24H PO SCH (08:17)
[2021-01-18] MEDS: LOSARTAN 50 MG TAB PO SCH (08:17)
[2021-01-18] MEDS: PANTOPRAZOLE 40 MG/10 ML VIAL IVP SCH (08:17)
[2021-01-18] MEDS: metroNIDAZOLE-NS PMX 500 MG in SALINE 1 100ML.BAG IVPB SCH ×2 (08:18→17:11)
[2021-01-18] MEDS: ALVIMOPAN 12 MG CAPSULE PO SCH ×2 (08:27→20:52)
[2021-01-18] MEDS: SODIUM CHLORIDE TAB 1 GM TAB PO SCH ×3 (08:27→21:31)
[2021-01-18] MEDS: CARBIDOPA-LEVODOPA 25-100 MG 1 EACH TAB PO SCH ×4 (08:28→21:31)
[2021-01-18] MEDS: FAT EMULSION 20% 250 ML in EMPTY BAG 1 BAG IV SCH (08:28)
[2021-01-18] MEDS: CITALOPRAM HYDROBROMIDE 10 MG TAB PO SCH (08:28)
[2021-01-18] MEDS: amLODIPine 10 MG TAB PO SCH (08:28)
[2021-01-18] MEDS: HYDROXYCHLOROQUINE SULFATE 200 MG TAB PO SCH ×2 (08:28→20:52)
[2021-01-18] MEDS: LEVOTHYROXINE 25 MCG TAB PO SCH (08:29)
[2021-01-18] MEDS: D5-0.45% NACL WITH KCL 20MEQ/L 1,000 ML IV SCH ×2 (08:30→17:18)
[2021-01-18 10:59] LABS: Basophils # (A) 0.02 X 10*3/uL (0.00-0.10); Basophils % (A) 0.2 %; Eosinophils # (A) 0 X 10*3/uL (0.04-0.35); Eosinophils % (A) 0 %; HCT 28.9 % (37.2-46.3); HGB 9.8 g/dL (12.0-15.0); Lymphocytes # (A) 0.45 X 10*3/uL (0.90-5.00); Lymphocytes % (A) 3.8 %; MCH 31.8 pg (27.0-32.0); MCHC 33.9 g/dL (32.0-37.0); MCV 93.8 fL (80.0-97.0); Mean Platelet Volume 10.5 fL (9.5-12.2); Monocytes % (A) 6.7 %; Neutrophils # (A) 10.47 X 10*3/uL (1.80-7.70); Neutrophils % (A) 87.8 %; Platelet Count 160 X 10*3/uL (140-440); RBC 3.08 X 10*6/uL (4.10-5.20); RDW 14.6 % (11.5-14.5); WBC 11.92 X 10*3/uL (4.50-10.00)
--- NOTE | 2021-01-18 11:28 | P.PN ---
Subjective Progress Note Date: 01/18/21 CHIEF COMPLAINT: Abdominal pain HISTORY OF PRESENT ILLNESS: Patient is postop day #1 status post sigmoid colectomy with end colostomy and excision of left fallopian tube for diverticulitis with pelvic abscess. She reports that her pain is controlled. She denies any nausea or vomiting. Patient is status post PICC line placement and has TPN. She did receive a unit of blood yesterday for hemoglobin of 6.0 hemoglobin is now 9.8. BMP for today is pending. Patient is having stool through her ostomy which is brown in color. RAJENDRA drain 130 mL output in 24 hour. PHYSICAL EXAM: VITAL SIGNS: Reviewed. GENERAL: Well-developed in no acute distress. HEENT: No sclera icterus. Extraocular movements grossly intact. Moist buccal mucosa. Head is atraumatic, normocephalic. ABDOMEN: Soft. Dressing clean dry and intact. Brown stool noted in ostomy bag. RAJENDRA drain serosanguineous fluid NEUROLOGIC: Alert and oriented. Cranial nerves II through XII grossly intact. ASSESSMENT: 1. Diverticulitis with pelvic abscess status post sigmoid colectomy with end colostomy and excision of left fallopian tube 2. Anemia PLAN: -Okay from surgical standpoint to resume patient's Coumadin -Keep patient nothing by mouth for now -Continue TPN for nutrition support -Continue IV antibiotics per ID -Continue pain medication as needed -Continue IV fluids -Hyponatremia treatment per medicine service -Encouraged patient to increase activity and to use incentive spirometer -GI prophylaxis Protonix and DVT prophylaxis SCDs Physician Degreaser Operator note has been reviewed by physician. Signing provider agrees with the documented findings, assessment, and plan of care. Objective - Vital Signs Vital signs: Vital Signs Temp 98.0 F 01/18/21 04:55 Pulse 76 01/18/21 04:55 Resp 16 01/18/21 04:55 BP 126/65 01/18/21 04:55 Pulse Ox 97 01/18/21 04:55 Intake & Output 01/17/21 01/18/21 01/18/21 18:59 06:59 18:59 Intake Total 310 Output Total 790 640 200 Balance -480 -640 -200 Weight 72.575 kg Intake: Blood Product 310 Rc As-1 Unit 310 [id number] Output: Drainage 90 40 Right Abdomen 90 40 Urine 500 600 Uretheral (Clark) 600 Stool 200 200 Other: Voiding Method Indwelling Catheter Indwelling Catheter Indwelling Catheter - Labs CBC & Chem 7: 01/18/21 06:46 01/17/21 09:08 Labs: Abnormal Lab Results - Last 24 Hours (Table) 01/17/21 01/17/21 01/17/21 Range/Units 09:08 09:08 11:16 WBC (4.50-10.00) X 10*3/uL RBC (4.10-5.20) X 10*6/uL Hgb (12.0-15.0) g/dL Hct (37.2-46.3) % RDW (11.5-14.5) % Immature Gran # (0.00-0.04) X 10*3/uL Neutrophils # (1.80-7.70) X 10*3/uL Lymphocytes # (0.90-5.00) X 10*3/uL Eosinophils # (0.04-0.35) X 10*3/uL Sodium 128 L (137-145) mmol/L Glucose 117 H (74-99) mg/dL POC Glucose (mg/dL) 139 H (75-99) mg/dL Calcium 7.5 L (8.4-10.2) mg/dL Phosphorus 2.0 L (2.5-4.5) mg/dL Magnesium 1.4 L (1.6-2.3) mg/dL Crossmatch See Detail 01/17/21 01/17/21 01/18/21 Range/Units 17:01 20:07 00:00 WBC (4.50-10.00) X 10*3/uL RBC (4.10-5.20) X 10*6/uL Hgb (12.0-15.0) g/dL Hct (37.2-46.3) % RDW (11.5-14.5) % Immature Gran # (0.00-0.04) X 10*3/uL Neutrophils # (1.80-7.70) X 10*3/uL Lymphocytes # (0.90-5.00) X 10*3/uL Eosinophils # (0.04-0.35) X 10*3/uL Sodium (137-145) mmol/L Glucose (74-99) mg/dL POC Glucose (mg/dL) 114 H 133 H 162 H (75-99) mg/dL Calcium (8.4-10.2) mg/dL Phosphorus (2.5-4.5) mg/dL Magnesium (1.6-2.3) mg/dL Crossmatch 01/18/21 01/18/21 Range/Units 06:43 06:46 WBC 11.92 H (4.50-10.00) X 10*3/uL RBC 3.08 L (4.10-5.20) X 10*6/uL Hgb 9.8 L (12.0-15.0) g/dL Hct 28.9 L (37.2-46.3) % RDW 14.6 H (11.5-14.5) % Immature Gran # 0.18 H (0.00-0.04) X 10*3/uL Neutrophils # 10.47 H (1.80-7.70) X 10*3/uL Lymphocytes # 0.45 L (0.90-5.00) X 10*3/uL Eosinophils # 0 L (0.04-0.35) X 10*3/uL Sodium (137-145) mmol/L Glucose (74-99) mg/dL POC Glucose (mg/dL) 129 H (75-99) mg/dL Calcium (8.4-10.2) mg/dL Phosphorus (2.5-4.5) mg/dL Magnesium (1.6-2.3) mg/dL Crossmatch Microbiology - Last 24 Hours (Table) 01/16/21 12:31 Gram Stain - Preliminary Other - Other Wound Culture - Preliminary Genia albicans 01/16/21 12:31 Gram Stain - Preliminary Other - Other Wound Culture - Preliminary Genia albicans
[2021-01-18 11:34] LABS: Glucose,Whole Blood 131 mg/dL (75-99)
[2021-01-18 13:11] LABS: African American GFR (CKD) 105.2 (60.0-200.0); Anion Gap 8.7 mmol/L (4.00-12.00); Calcium 7.8 mg/dL (8.7-10.3); Carbon Dioxide 24.3 mmol/L (21.6-31.8); Magnesium 1.7 mg/dL (1.5-2.4); Non-African American GFR(CKD) 90.8 (60.0-200.0); Potassium 3.6 mmol/L (3.5-5.5)
[2021-01-18] MEDS ORDERED: Phosphorus Replacement Protoco 1 EACH MISC MISCELLANE PRN (13:30)
[2021-01-18] MEDS: SODIUM PHOSPHATE 10 MMOL in SODIUM CHLORIDE 0.9% 250 ML IVPB SCH ×2 (17:11→20:18)
[2021-01-18 17:21] LABS: Glucose,Whole Blood 117 mg/dL (75-99)
[2021-01-18] MEDS: ACETAMINOPHEN TAB 325 MG TAB PO PRN (19:57)
[2021-01-18] MEDS: ZOLPIDEM 5 MG TAB PO SCH (20:52)
[2021-01-18] MEDS: 1: MVI, ADULT NO.4 WITH VIT K 10 ML, TRACE (CONC-1ML/DOSE) 1 ML, SODIUM ACETATE 20 MEQ i IV SCH ×4 (22:25)
[2021-01-19] MEDS: ANIDULAFUNGIN 100 MG in SODIUM CHLORIDE 0.9% 100 ML IVPB SCH (00:33)
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
[2021-01-19 00:57] LABS: Glucose,Whole Blood 135 mg/dL (75-99)
[2021-01-19] MEDS: D5-0.45% NACL WITH KCL 20MEQ/L 1,000 ML IV SCH ×4 (01:22→14:54)
--- NOTE | 2021-01-19 01:25 | PN ---
PROGRESS NOTE DATE OF SERVICE: 01/18/2021 REASON FOR FOLLOWUP: Abdominal abscess from perforated diverticulitis. INTERVAL HISTORY: The patient is currently afebrile. She has been complaining of abdominal pain but no worsening. Denies any chest pain. No shortness of breath. Patient did have some cough. No sputum. No vomiting. PHYSICAL EXAMINATION: Blood pressure 132/72 with a pulse of 86, temperature 98.5. She is 94% on room air. General description is an elderly female lying in bed in no distress. Respiratory system: Unlabored breathing, clear to auscultation anteriorly. Heart S1, S2. Regular rate and rhythm. Abdomen soft, nontender, no guarding. No rigidity. LABS: Hemoglobin is 9.8, white count 11.92, BUN of 12, creatinine 0.5. Abdominal culture was Genia albicans. DIAGNOSTIC IMPRESSION AND PLAN: Patient with abdominal abscess from perforated diverticulitis in this patient culture with Genia. Cannot use Diflucan because of the medication patient is on including Celexa. The patient is covered with Eraxis to continue along with cefepime and Flagyl and monitor clinical course closely. Continue supportive care. MMODL / IJN: [id number] /
[2021-01-19] MEDS: metroNIDAZOLE-NS PMX 500 MG in SALINE 1 100ML.BAG IVPB SCH ×3 (02:00→17:25)
[2021-01-19] MEDS: CEFEPIME 2 GM in SODIUM CHLORIDE 0.9% 100 ML IVPB SCH ×2 (05:58→18:37)
[2021-01-19 06:04] LABS: Glucose,Whole Blood 131 mg/dL (75-99)
[2021-01-19 07:24] LABS: African American GFR (CKD) >90 (>60 ml/min/1.73 sqM); Anion Gap 3 mmol/L; Blood Urea Nitrogen 13 mg/dL (7-17); Calcium 7.8 mg/dL (8.4-10.2); Carbon Dioxide 27 mmol/L (22-30); Chloride 101 mmol/L (98-107); Glucose 135 mg/dL (74-99); Magnesium 1.7 mg/dL (1.6-2.3); Non-African American GFR(CKD) 90 (>60 ml/min/1.73 sqM); Phosphorus 2.7 mg/dL (2.5-4.5); Potassium 3.3 mmol/L (3.5-5.1); Sodium 131 mmol/L (137-145)
[2021-01-19] MEDS ORDERED: POTASSIUM CHLORIDE ER 20 MEQ TAB.ER PO STA ×2 (08:07→21:34)
[2021-01-19] MEDS: PANTOPRAZOLE 40 MG/10 ML VIAL IVP SCH (10:31)
[2021-01-19] MEDS: FAMOTIDINE 20 MG/2 ML VIAL IV SCH (10:31)
[2021-01-19] MEDS: METOPROLOL SUCCINATE (ER) 50 MG TAB.ER.24H PO SCH (10:32)
[2021-01-19] MEDS: LEVOTHYROXINE 25 MCG TAB PO SCH (10:32)
[2021-01-19] MEDS: CARBIDOPA-LEVODOPA 25-100 MG 1 EACH TAB PO SCH ×4 (10:32→20:31)
[2021-01-19] MEDS: ALVIMOPAN 12 MG CAPSULE PO SCH (10:32)
[2021-01-19] MEDS: SODIUM CHLORIDE TAB 1 GM TAB PO SCH ×3 (10:32→21:02)
[2021-01-19] MEDS: LOSARTAN 50 MG TAB PO SCH (10:32)
[2021-01-19] MEDS: HYDROXYCHLOROQUINE SULFATE 200 MG TAB PO SCH ×2 (10:32→20:30)
[2021-01-19] MEDS: amLODIPine 10 MG TAB PO SCH (10:32)
[2021-01-19] MEDS: CITALOPRAM HYDROBROMIDE 10 MG TAB PO SCH (10:33)
[2021-01-19] MEDS: POTASSIUM CHLORIDE 20 MEQ in WATER FOR INJECTION 1 100ML.BAG IVPB SCH ×2 (10:40→10:44)
[2021-01-19] MEDS: ONDANSETRON 4 MG/2 ML VIAL IVP PRN (10:52)
[2021-01-19 11:59] LABS: Glucose,Whole Blood 140 mg/dL (75-99)
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
--- NOTE | 2021-01-19 13:52 | CDI ---
Documentation Clarification Form Date: 01/19/2021 01:22:57 PM From: Aylin Xavier RN CCDS Admit Date: 01/06/2021 07:47:00 PM Patient Name: Candy Gilbert Visit Number: [id number] Discharge Date: ATTENTION: The Clinical Documentation Specialists (CDI) and [facility] Coding Staff appreciate your assistance in clarifying documentation. Please respond to the clarification below the line at the bottom and electronically sign. The CDI & [facility] Coding staff will review the response and follow-up if needed. Please note: Queries are made part of the Legal Health Record. If you have any questions, please contact the author of this message via ITS. Dr. Pawan Corona, Acute delirium improved is documented in Medicine progress note 01/12. History/Risk Factors: 80-year-old female presents to ED with six days of increasing left lower abdominal pain had a fever in ED. Admitted with Diverticulitis with micro perforation and fecal impaction. Medical history: Diverticulitis. H&P 01/07. Clinical Indicators: Acute Delirium with visual hallucinations from lack of sleep underlying infection. Medicine progress note 01/09. Switched over to Levaquin and Flagyl. Acute delirium improved. Medicine progress note 01/12. Labs: 01/09 Wbc 6.6. VSS: 01/09 11:16 B/P 167/80; HR 64; Temp 98.4 F Oral; RR 17 SpO2 94% room air. CT Reuben 01/06: Mild atrophy. Treatment: 01/06 Zosyn 3.75mg IVPB x1. 01/07 Zosyn 3.75mg [id number] d/c 01/07. 01/08 Levaquin 750mg IVPB Q24H changed 01/10 to Levaquin 750mg PO Daily changed 01/14 to Levaquin 500mg IVPB Q24H d/c 01/16. 01/08 Flagyl 500mg IVPB Q6H changed 01/10 to Flagyl 500mg PO Q6HR changed 01/13 to Flagyl 500mg IVPB Q8HR to current. 01/16 Cefepime HCL 2gm IVPB Q12H to current. In your professional opinion, can you please further clarify Acute delirium? Metabolic Encephalopathy secondary to underlying infection. Other, please specify Unable to determine (Last Revision: January 2018) Acute delirium with metabolic encephalopathy secondary to underlying infection MTDD
[2021-01-19] MEDS: FUROSEMIDE 10 MG/ML 4 ML VIAL IV SCH (14:15)
[2021-01-19] MEDS: HEPARIN SODIUM,PORCINE 5,000 UNIT/ML 1 ML VIAL SQ SCH ×2 (14:15→20:33)
[2021-01-19] MEDS: WARFARIN 2.5 MG TAB PO ONE ×2 (14:15→14:47)
[2021-01-19] MEDS: 1: MVI, ADULT NO.4 WITH VIT K 10 ML, TRACE (CONC-1ML/DOSE) 1 ML, SODIUM ACETATE 20 MEQ i IV SCH ×8 (14:16→14:17)
--- NOTE | 2021-01-19 14:55 | P.PN ---
Subjective Progress Note Date: 01/19/21 CHIEF COMPLAINT: Abdominal pain HISTORY OF PRESENT ILLNESS: Patient is postop day #3 status post sigmoid colectomy with end colostomy and excision of left fallopian tube for diverticulitis with pelvic abscess. She reports that her pain is controlled. She denies any nausea or vomiting. Patient is status post PICC line placement and has TPN. Her ostomy is functioning. She has been had both stool and gas passed through the ostomy. Afebrile. Sodium 131 potassium 3.3 creatinine 0.53 magnesium 1.7 medicine has restarted patient's Coumadin today. PHYSICAL EXAM: VITAL SIGNS: Reviewed. GENERAL: Well-developed in no acute distress. HEENT: No sclera icterus. Extraocular movements grossly intact. Moist buccal mucosa. Head is atraumatic, normocephalic. ABDOMEN: Soft. Dressing clean dry and intact. Brown stool and air noted in ostomy bag. RAJENDRA drain serosanguineous fluid NEUROLOGIC: Alert and oriented. Cranial nerves II through XII grossly intact. ASSESSMENT: 1. Diverticulitis with pelvic abscess status post sigmoid colectomy with end colostomy and excision of left fallopian tube 2. Anemia PLAN: -Start patient on a full liquid diet -Continue TPN for nutrition support -Continue IV antibiotics per ID -Continue pain medication as needed -Continue IV fluids -Hyponatremia treatment per medicine service -Encouraged patient to increase activity and to use incentive spirometer -GI prophylaxis Protonix and DVT prophylaxis SCDs Physician Bus Steward note has been reviewed by physician. Signing provider agrees with the documented findings, assessment, and plan of care. Objective - Vital Signs Vital signs: Vital Signs Temp 98.3 F 01/19/21 12:13 Pulse 83 01/19/21 12:13 Resp 17 01/19/21 12:13 BP 121/69 01/19/21 12:13 Pulse Ox 96 01/19/21 12:13 Intake & Output 01/18/21 01/19/21 01/19/21 18:59 06:59 18:59 Intake Total 1021 Output Total 950 1100 Balance -950 -1100 1021 Intake: Intake, IV Titration 1021 Amount Mvi, Adult No.4 with Vit 1021 K 10 ml Trace (Conc-1Ml/ Dose) 1 ml Sodium Acetate 20 meq In Amino Acid 5%- D15w+Lytes*E* 1,000 ml @ 70 mls/hr IV .BY DURATION [facility] Rx#:[id number] Output: Urine 750 1000 Uretheral (Clark) 1000 Stool 200 100 Other: Voiding Method Indwelling Catheter Indwelling Catheter Indwelling Catheter - Labs CBC & Chem 7: 01/18/21 06:46 01/19/21 06:36 Labs: Abnormal Lab Results - Last 24 Hours (Table) 01/18/21 01/19/21 01/19/21 Range/Units 17:16 00:55 06:00 Sodium (137-145) mmol/L Potassium (3.5-5.1) mmol/L Glucose (74-99) mg/dL POC Glucose (mg/dL) 117 H 135 H 131 H (75-99) mg/dL Calcium (8.4-10.2) mg/dL 01/19/21 01/19/21 Range/Units 06:36 11:58 Sodium 131 L (137-145) mmol/L Potassium 3.3 L (3.5-5.1) mmol/L Glucose 135 H (74-99) mg/dL POC Glucose (mg/dL) 140 H (75-99) mg/dL Calcium 7.8 L (8.4-10.2) mg/dL Microbiology - Last 24 Hours (Table) 01/16/21 12:31 Anaerobic Culture - Preliminary Other - Other Gram Positive Bacilli 01/16/21 12:31 Anaerobic Culture - Preliminary Other - Other Coagulase Negative Staph 01/16/21 12:31 Gram Stain - Final Other - Other Wound Culture - Final Genia albicans 01/16/21 12:31 Gram Stain - Final Other - Other Wound Culture - Final Genia albicans
[2021-01-19 16:48] LABS: INR 1.1 (<1.2); Prothrombin Time 11.5 sec (9.0-12.0)
[2021-01-19] MEDS ORDERED: VANCOMYCIN IV PER PHARMACY 1 EACH MISC MISCELLANE PRN (17:35)
[2021-01-19 17:43] LABS: Glucose,Whole Blood 133 mg/dL (75-99)
[2021-01-19] MEDS ORDERED: VANCOMYCIN 1,500 MG in SODIUM CHLORIDE 0.9% 250 ML IVPB ONE (19:00)
[2021-01-19] MEDS ORDERED: WARFARIN 5 MG TAB PO ONE (19:00)
--- NOTE | 2021-01-19 19:01 | PN ---
PROGRESS NOTE DATE OF SERVICE: 01/19/2021 REASON FOR FOLLOWUP: Abdominal abscess from perforated sigmoid diverticulitis. INTERVAL HISTORY: The patient is currently afebrile. The patient is breathing comfortably. Denies having any chest pain or shortness of breath. The patient did have a sort of cough and subsequently had some abdominal pain, but no worsening. No nausea. No vomiting. PHYSICAL EXAMINATION: Blood pressure 121/69 with a pulse of 83, temperature 98.8. She is 96% on room air. General description is an elderly female in the chair in no distress. RESPIRATORY SYSTEM: Unlabored breathing. Clear to auscultation anteriorly. HEART: S1, S2. Regular rate and rhythm. ABDOMEN: Soft. Mildly tender. No guarding or rigidity. LABS: BUN of 13, creatinine 0.53. Abdominal culture with Gram-positive bacilli and Genia albicans. DIAGNOSTIC IMPRESSION AND PLAN: Patient with abdominal abscess from perforated diverticulitis. Abdominal culture now showing coagulase-negative Staph in addition the Genia albicans. We will add vancomycin, Pharmacy to dose, continue with Eraxis. Likely will need a PICC line for outpatient short course of antibiotic therapy. Continue with supportive care. MMODL / IJN: [id number] /
[2021-01-19] MEDS: MORPHINE SULFATE 4 MG/ML SYRINGE IVP PRN (20:29)
[2021-01-19] MEDS: ZOLPIDEM 5 MG TAB PO SCH (20:31)
[2021-01-19] MEDS ORDERED: MAGNESIUM SULFATE-D5W PMX 1 GM in DEXTROSE/WATER 1 100ML.BAG IVPB ONE (21:29)
[2021-01-19] MEDS ORDERED: DEXTROSE 5%-0.9% NACL 1,000 ML IV SCH (21:30)
[2021-01-20] MEDS ORDERED: MORPHINE SULFATE 4 MG/ML SYRINGE ONE (04:35)
[2021-01-20 05:37] LABS: Glucose,Whole Blood 144 mg/dL (75-99)
[2021-01-20 06:08] LABS: Glucose,Whole Blood 143 mg/dL (75-99)
[2021-01-20] MEDS: CEFEPIME 2 GM in SODIUM CHLORIDE 0.9% 100 ML IVPB SCH ×2 (06:18→17:38)
[2021-01-20] MEDS: ANIDULAFUNGIN 100 MG in SODIUM CHLORIDE 0.9% 100 ML IVPB SCH ×2 (06:37→23:55)
[2021-01-20] MEDS: metroNIDAZOLE-NS PMX 500 MG in SALINE 1 100ML.BAG IVPB SCH ×4 (06:37→23:01)
[2021-01-20] MEDS: VANCOMYCIN 1,250 MG in SODIUM CHLORIDE 0.9% 250 ML IVPB SCH ×2 (07:21→19:38)
[2021-01-20 07:47] LABS: Basophils % (A) 0 %; Eosinophils # (A) 0.1 k/uL (0-0.7); Eosinophils % (A) 1 %; HCT 29.4 % (34.0-46.0); Lymphocytes # (A) 0.3 k/uL (1.0-4.8); Lymphocytes % (A) 4 %; MCH 32.1 pg (25.0-35.0); MCHC 33.7 g/dL (31.0-37.0); MCV 95.4 fL (80.0-100.0); Mean Platelet Volume 7.7; Monocytes # (A) 0.5 k/uL (0-1.0); Monocytes % (A) 5 %; Neutrophils # (A) 8.8 k/uL (1.3-7.7); Neutrophils % (A) 90 %; RBC 3.08 m/uL (3.80-5.40); RDW 14.5 % (11.5-15.5); WBC 9.8 k/uL (3.8-10.6)
[2021-01-20 07:48] LABS: ALT 8 U/L (4-34); AST 28 U/L (14-36); African American GFR (CKD) >90 (>60 ml/min/1.73 sqM); Albumin 2.2 g/dL (3.5-5.0); Alkaline Phosphatase 51 U/L (38-126); Anion Gap 4 mmol/L; Blood Urea Nitrogen 17 mg/dL (7-17); Calcium 7.8 mg/dL (8.4-10.2); Carbon Dioxide 30 mmol/L (22-30); Chloride 95 mmol/L (98-107); Globulin 2.1 g/dL; Glucose 149 mg/dL (74-99); Magnesium 1.8 mg/dL (1.6-2.3); Non-African American GFR(CKD) >90 (>60 ml/min/1.73 sqM); Phosphorus 2.7 mg/dL (2.5-4.5); Potassium 3.7 mmol/L (3.5-5.1); Sodium 129 mmol/L (137-145); Total Bilirubin 0.5 mg/dL (0.2-1.3); Total Protein 4.3 g/dL (6.3-8.2)
[2021-01-20 07:50] LABS: HGB 9.9 gm/dL (11.4-16.0)
[2021-01-20 07:51] LABS: Platelet Count 194 k/uL (150-450)
[2021-01-20 07:52] LABS: INR 1.1 (<1.2); Prothrombin Time 11.8 sec (9.0-12.0)
[2021-01-20] MEDS: FAT EMULSION 20% 250 ML in EMPTY BAG 1 BAG IV SCH (09:55)
[2021-01-20] MEDS: CITALOPRAM HYDROBROMIDE 10 MG TAB PO SCH (09:56)
[2021-01-20] MEDS: amLODIPine 10 MG TAB PO SCH (09:56)
[2021-01-20] MEDS: HYDROXYCHLOROQUINE SULFATE 200 MG TAB PO SCH ×2 (09:56→20:21)
[2021-01-20] MEDS: FUROSEMIDE 10 MG/ML 4 ML VIAL IV SCH (09:56)
[2021-01-20] MEDS: HEPARIN SODIUM,PORCINE 5,000 UNIT/ML 1 ML VIAL SQ SCH ×2 (09:56→20:20)
[2021-01-20] MEDS: SODIUM CHLORIDE TAB 1 GM TAB PO SCH ×3 (09:56→20:21)
[2021-01-20] MEDS: CARBIDOPA-LEVODOPA 25-100 MG 1 EACH TAB PO SCH ×4 (09:56→20:21)
[2021-01-20] MEDS: METOPROLOL SUCCINATE (ER) 50 MG TAB.ER.24H PO SCH (09:56)
[2021-01-20] MEDS: LOSARTAN 50 MG TAB PO SCH (09:56)
[2021-01-20] MEDS: PANTOPRAZOLE 40 MG/10 ML VIAL IVP SCH (09:56)
[2021-01-20] MEDS: LEVOTHYROXINE 25 MCG TAB PO SCH (09:57)
[2021-01-20] MEDS: 1: MVI, ADULT NO.4 WITH VIT K 10 ML, TRACE (CONC-1ML/DOSE) 1 ML, SODIUM ACETATE 20 MEQ i IV SCH ×4 (10:49)
[2021-01-20] MEDS: MORPHINE SULFATE 4 MG/ML SYRINGE IVP PRN (10:54)
[2021-01-20 11:58] LABS: Glucose,Whole Blood 128 mg/dL (75-99)
--- NOTE | 2021-01-20 12:49 | P.PN ---
Subjective Progress Note Date: 01/20/21 CHIEF COMPLAINT: Abdominal pain HISTORY OF PRESENT ILLNESS: Patient is postop day #4 status post sigmoid colectomy with end colostomy and excision of left fallopian tube for diverticulitis with pelvic abscess. She reports that her pain is controlled. She denies any nausea or vomiting. Patient is status post PICC line placement and has TPN. Her ostomy is functioning. She has been had both stool and gas passed through the ostomy. Afebrile. WBC 9.8 sodium back down to 129 potassium 3.7 creatinine 0.47 albumin 2.2 patient is currently on a full liquid diet. PHYSICAL EXAM: VITAL SIGNS: Reviewed. GENERAL: Well-developed in no acute distress. HEENT: No sclera icterus. Extraocular movements grossly intact. Moist buccal mucosa. Head is atraumatic, normocephalic. ABDOMEN: Soft. Dressing clean dry and intact. Brown stool and air noted in ostomy bag. RAJENDRA drain serosanguineous fluid NEUROLOGIC: Alert and oriented. Cranial nerves II through XII grossly intact. ASSESSMENT: 1. Diverticulitis with perforation and pelvic abscess status post sigmoid colectomy with end colostomy and excision of left fallopian tube 2. Anemia status post blood transfusion during this admission 3. Hyponatremia PLAN: -Consult placed for nephrology regarding continuous hyponatremia -continue full liquid diet -discontinue Clark catheter -Continue TPN for nutrition support -Continue IV antibiotics per ID -Continue pain medication as needed -Continue IV fluids -Encouraged patient to increase activity and to use incentive spirometer -GI prophylaxis Protonix and DVT prophylaxis subcu heparin Physician Security Patrol Officer note has been reviewed by physician. Signing provider agrees with the documented findings, assessment, and plan of care. Objective - Vital Signs Vital signs: Vital Signs Temp 98.8 F 01/20/21 12:18 Pulse 76 01/20/21 12:18 Resp 17 01/20/21 12:18 BP 100/63 01/20/21 12:18 Pulse Ox 93 L 01/20/21 12:18 Intake & Output 01/19/21 01/20/21 01/20/21 18:59 06:59 18:59 Intake Total 1021 Output Total 4090 400 800 Balance -3069 -400 -800 Intake: Intake, IV Titration 1021 Amount Mvi, Adult No.4 with Vit 1021 K 10 ml Trace (Conc-1Ml/ Dose) 1 ml Sodium Acetate 20 meq In Amino Acid 5%- D15w+Lytes*E* 1,000 ml @ 70 mls/hr IV .BY DURATION [facility] Rx#:[id number] Output: Drainage 90 Right Abdomen 90 Urine 4000 400 800 Uretheral (Clark) 400 Other: Voiding Method Indwelling Catheter Indwelling Catheter # Voids 1 - Labs CBC & Chem 7: 01/20/21 07:05 01/20/21 07:05 Labs: Abnormal Lab Results - Last 24 Hours (Table) 01/19/21 01/20/21 01/20/21 Range/Units 17:42 00:16 06:04 RBC (3.80-5.40) m/uL Hgb (11.4-16.0) gm/dL Hct (34.0-46.0) % Neutrophils # (1.3-7.7) k/uL Lymphocytes # (1.0-4.8) k/uL Sodium (137-145) mmol/L Chloride (98-107) mmol/L Creatinine (0.52-1.04) mg/dL Glucose (74-99) mg/dL POC Glucose (mg/dL) 133 H 144 H 143 H (75-99) mg/dL Calcium (8.4-10.2) mg/dL Total Protein (6.3-8.2) g/dL Albumin (3.5-5.0) g/dL 01/20/21 01/20/21 01/20/21 Range/Units 07:05 07:05 11:56 RBC 3.08 L (3.80-5.40) m/uL Hgb 9.9 L D (11.4-16.0) gm/dL Hct 29.4 L (34.0-46.0) % Neutrophils # 8.8 H (1.3-7.7) k/uL Lymphocytes # 0.3 L (1.0-4.8) k/uL Sodium 129 L (137-145) mmol/L Chloride 95 L (98-107) mmol/L Creatinine 0.47 L (0.52-1.04) mg/dL Glucose 149 H (74-99) mg/dL POC Glucose (mg/dL) 128 H (75-99) mg/dL Calcium 7.8 L (8.4-10.2) mg/dL Total Protein 4.3 L (6.3-8.2) g/dL Albumin 2.2 L (3.5-5.0) g/dL Microbiology - Last 24 Hours (Table) 01/16/21 12:31 Anaerobic Culture - Preliminary Other - Other Gram Positive Bacilli 01/16/21 12:31 Anaerobic Culture - Preliminary Other - Other Coagulase Negative Staph
[2021-01-20] MEDS ORDERED: MORPHINE SULFATE 2 MG/ML SYRINGE IVP PRN (13:31)
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
--- NOTE | 2021-01-20 17:37 | CONS ---
CONSULTATION REASON FOR CONSULT: Hyponatremia. Patient is an 80-year-old female who was admitted to the hospital on 01/06/2021 with complaints of abdominal pain. Since admission, patient has had explorative laparotomy with sigmoid colectomy and end-colostomy on 01/16/2021. Indication was diverticulitis with pelvic abscess. Patient is currently maintained on TPN and she is also receiving IV fluids, saline that was started yesterday at 75 mL/hour. Serum sodium has been on the lower side, staying at about 126 to 128. It was up to 131 and 134 yesterday and dropped back down to 129 today. Patient was started on saline yesterday along with the TPN. She is not on any thiazide diuretics. Blood pressure has been around 120 to 100 mmHg systolic. PAST MEDICAL HISTORY: Significant for hypertension, chronic abdominal pain, coronary artery disease, atrial fibrillation, hyperlipidemia, osteoarthritis, seizure disorder, hypothyroidism, previous history of diverticulitis, herniated disc. PAST SURGICAL HISTORY: Adenoidectomy, appendectomy, breast surgery, tonsillectomy, bilateral breast biopsies, sinus surgery. SOCIAL HISTORY: Positive for patient being a former smoker. No history of drug abuse or alcohol abuse. MEDICATIONS: Currently patient is maintained on TPN. She is on Sinemet, Norvasc, anidulafungin, Celexa, Flexeril, Benadryl, Lasix, Plaquenil, Synthroid, Cozaar, Reglan, Toprol, Flagyl, vancomycin, Coumadin. PHYSICAL EXAMINATION: Patient is comfortable, awake, alert, oriented x3, not in any acute distress. Blood pressure is 128/73, heart rate 74 per minute. She is afebrile. EXAMINATION OF THE HEART: S1 and S2. EXAMINATION OF LUNGS: Bilateral breath sounds are heard. Decreased breath sounds at bases. Minimal basal crackles heard. ABDOMEN: Soft, non-tender. Examination of lower extremities shows 1+ edema, bilateral lower extremities. CERTIFIED SCRUM MASTER exam is grossly intact. LABS: Sodium 129, potassium 3.7, chloride 95, BUN 17, creatinine 0.47, hemoglobin 9.9 g/dL. ASSESSMENT: 1. Hyponatremia; appears to be hypervolemic. I will discontinue the saline. Patient is receiving TPN. She has also been started on Lasix yesterday, which I will continue for now. Check urine osmolality. Check TSH and random cortisol levels. Patient does have a previous history of hyponatremia in 2014; however, after that she has been mostly around 130s but dropping down to 126 during the early part of this admission. 2. Pelvic abscess, status post explorative laparotomy, sigmoid colectomy and end- colostomy with excision of left fallopian tube. 3. Diverticulitis with complication of pelvic abscess. 4. Paroxysmal atrial fibrillation. 5. Seizure disorder. 6. History of hypothyroidism. PLAN: Check TSH. Check random cortisol level. Check urine osmolality. Discontinue saline. May continue with the TPN. Continue with the IV Lasix daily for now and repeat labs in a.m. Thank you for this consultation. Will continue to follow the patient with you during her hospitalization. MMODL / IJN: [id number] /
[2021-01-20 17:49] LABS: Glucose,Whole Blood 136 mg/dL (75-99)
[2021-01-20] MEDS ORDERED: WARFARIN 5 MG TAB PO ONE (18:00)
[2021-01-20] MEDS: ZOLPIDEM 5 MG TAB PO SCH (20:21)
--- NOTE | 2021-01-20 23:20 | PN ---
PROGRESS NOTE DATE OF SERVICE: 01/20/2021 REASON FOR FOLLOWUP: Abdominal abscess from perforated diverticulitis. INTERVAL HISTORY: The patient is currently afebrile. The patient is breathing comfortably. The patient denies having any chest pain or shortness of breath. Occasional cough. Abdominal pain is currently controlled. No nausea, no vomiting. PHYSICAL EXAMINATION: Blood pressure 109/73, pulse of 71, temperature 98.1. She is 95% on room air. General description is an elderly female up in the chair in no distress. RESPIRATORY SYSTEM: Unlabored breathing. Clear to auscultation anteriorly. HEART: S1, S2. Regular rate and rhythm. ABDOMEN: Soft. Mildly tender. No guarding or rigidity. LABS: Hemoglobin is 9.9, white count 10.9, BUN of 17, creatinine 0.47. DIAGNOSTIC IMPRESSION AND PLAN: Patient with abdominal abscess from perforated diverticulitis in this patient whose culture is positive for multiple pathogens and this patient is covered with vancomycin and cefepime and Eraxis. White count normal. Continue with supportive care. MMODL / IJN: [id number] /
[2021-01-21] MEDS: CEFEPIME 2 GM in SODIUM CHLORIDE 0.9% 100 ML IVPB SCH ×2 (05:11→17:15)
[2021-01-21] MEDS ORDERED: VANCOMYCIN TROUGH DUE 1 EACH MISC MISCELLANE ONE (06:00)
[2021-01-21 07:30] LABS: INR 1.1 (<1.2); Prothrombin Time 11.8 sec (9.0-12.0)
[2021-01-21] MEDS: VANCOMYCIN 1,250 MG in SODIUM CHLORIDE 0.9% 250 ML IVPB SCH ×2 (08:59→20:08)
[2021-01-21] MEDS: FUROSEMIDE 10 MG/ML 4 ML VIAL IV SCH (09:00)
[2021-01-21] MEDS: PANTOPRAZOLE 40 MG/10 ML VIAL IVP SCH (09:00)
[2021-01-21 09:02] LABS: ALT 6 U/L (4-34); AST 25 U/L (14-36); African American GFR (CKD) >90 (>60 ml/min/1.73 sqM); Albumin 2.2 g/dL (3.5-5.0); Alkaline Phosphatase 58 U/L (38-126); Anion Gap 5 mmol/L; Blood Urea Nitrogen 22 mg/dL (7-17); Calcium 8.3 mg/dL (8.4-10.2); Carbon Dioxide 28 mmol/L (22-30); Chloride 96 mmol/L (98-107); Globulin 2.2 g/dL; Glucose 115 mg/dL (74-99); Magnesium 1.6 mg/dL (1.6-2.3); Non-African American GFR(CKD) 88 (>60 ml/min/1.73 sqM); Phosphorus 2.8 mg/dL (2.5-4.5); Potassium 3.6 mmol/L (3.5-5.1); Sodium 129 mmol/L (137-145); Total Bilirubin 0.5 mg/dL (0.2-1.3); Total Protein 4.4 g/dL (6.3-8.2); Triglycerides 49 mg/dL (<150)
[2021-01-21] MEDS: CARBIDOPA-LEVODOPA 25-100 MG 1 EACH TAB PO SCH ×4 (10:47→20:22)
[2021-01-21] MEDS: amLODIPine 10 MG TAB PO SCH (10:47)
[2021-01-21] MEDS: LEVOTHYROXINE 25 MCG TAB PO SCH (10:47)
[2021-01-21] MEDS: CITALOPRAM HYDROBROMIDE 10 MG TAB PO SCH (10:49)
[2021-01-21] MEDS: HYDROXYCHLOROQUINE SULFATE 200 MG TAB PO SCH ×2 (10:50→20:23)
[2021-01-21] MEDS: LOSARTAN 50 MG TAB PO SCH (10:51)
[2021-01-21] MEDS: METOPROLOL SUCCINATE (ER) 50 MG TAB.ER.24H PO SCH (10:52)
[2021-01-21] MEDS: SODIUM CHLORIDE TAB 1 GM TAB PO SCH ×3 (10:53→20:23)
[2021-01-21] MEDS: HEPARIN SODIUM,PORCINE 5,000 UNIT/ML 1 ML VIAL SQ SCH ×2 (10:55→20:21)
[2021-01-21] MEDS: metroNIDAZOLE-NS PMX 500 MG in SALINE 1 100ML.BAG IVPB SCH ×3 (11:08→23:56)
[2021-01-21 11:46] LABS: Glucose,Whole Blood 136 mg/dL (75-99)
--- NOTE | 2021-01-21 12:42 | P.PN ---
Subjective Progress Note Date: 01/21/21 Principal diagnosis: This is a 80-year-old female, followed up for hyponatremia secondary to combination off TPN, pain and possibly SIADH. Yesterday because of possible fluid overload she will was given Lasix. Sodium went down from 133-129. Her TPN contains 30 meq of sodium She was admitted with a pelvic abscess or diverticulitis, underwent exploratory laparotomy and sigmoid colectomy and colostomy. She still has drainage tubes coming out of her abdomen. She is in pain. No nausea vomiting. No shortness of breath. Her vital signs are stable blood pressure in the 109 systolic to 127. Urine output is 2100 mL. And the day before it was 4400 mL intake was not documented accurately Objective - Vital Signs Vital signs: Vital Signs Temp 98.0 F 01/21/21 11:42 Pulse 80 01/21/21 11:42 Resp 16 01/21/21 11:42 BP 119/67 01/21/21 11:42 Pulse Ox 95 01/21/21 11:42 Intake & Output 01/20/21 01/21/21 01/21/21 18:59 06:59 18:59 Output Total 2200 70 Balance -2200 -70 Weight 72.575 kg Output: Drainage 70 Right Abdomen 70 Urine 2100 Uretheral (Clark) 1300 Stool 100 Other: Voiding Method Indwelling Catheter Indwelling Catheter Incontinent # Voids 2 1 1 On examination she is weak and tired but responds and answers questions. HEENT exam no JVP neck is supple no facial asymmetry Lungs are clear to auscultation good air entry bilaterally Heart sounds are unremarkable no murmur rub gallop Abdomen soft minimally tender, colostomy noted, drains noted Extremity exam reveals Neurologically awake alert but profoundly weak - Labs CBC & Chem 7: 01/20/21 07:05 01/21/21 06:55 Labs: Abnormal Lab Results - Last 24 Hours (Table) 01/20/21 01/20/21 01/21/21 Range/Units 14:48 17:48 06:55 Sodium 133 L 129 L (135-145) mmol/L Chloride 96 L (98-107) mmol/L BUN 22 H (7-17) mg/dL Glucose 115 H (74-99) mg/dL POC Glucose (mg/dL) 136 H (75-99) mg/dL Calcium 8.3 L (8.4-10.2) mg/dL Total Protein 4.4 L (6.3-8.2) g/dL Albumin 2.2 L (3.5-5.0) g/dL 01/21/21 Range/Units 11:44 Sodium (135-145) mmol/L Chloride (98-107) mmol/L BUN (7-17) mg/dL Glucose (74-99) mg/dL POC Glucose (mg/dL) 136 H (75-99) mg/dL Calcium (8.4-10.2) mg/dL Total Protein (6.3-8.2) g/dL Albumin (3.5-5.0) g/dL Microbiology - Last 24 Hours (Table) 01/16/21 12:31 Anaerobic Culture - Final Other - Other Gram Positive Bacilli 01/16/21 12:31 Anaerobic Culture - Final Other - Other Coagulase Negative Staph Assessment and Plan Assessment: Impression 1. 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 A trial of Lasix was tried, sodium went down from 133-129 currently on sodium chloride tablets 1 g 3 times a day 2. Status post diverticulitis and pelvic abscess status post exploratory lap and sigmoid colectomy and colostomy. 3. History of atrial fibrillation coronary artery disease seizure disorder Recommendation 1. Discontinue Lasix and watch closely for fluid overload 2. Maintain the sodium chloride 1 g 3 times a day 3. watch sodium, if sodium goes down will be assess her
--- NOTE | 2021-01-21 13:36 | P.PN ---
Subjective Progress Note Date: 01/21/21 CHIEF COMPLAINT: Diverticulitis HISTORY OF PRESENT ILLNESS: The patient is a 80-year-old female status post sigmoid colectomy with colostomy due to perforated diverticulitis and drainage of abscess, 01/16/2021. She is on TPN for nutrition. Her daughter is at bedside and reports that she is lactose intolerant. No report of abdominal pain. Her ostomy has been functioning with liquid light stools. ROS: Has coronary artery disease, hypertensive heart disease with hyperlipidemia, has history of seizure disorders. No fevers or chills. No shortness of breath. PHYSICAL EXAM: VITAL SIGNS: Reviewed CONSTITUTIONAL: Well developed and in no acute distress. EYES: Conjuctivae without sclera icterus. Extraocular movements grossly intact. HEAD, EARS, NOSE, THROAT: Moist buccal mucosa. Head is atraumatic, normocephalic. Hears conversational speech. No nasal drainage. NECK: Supple. No thyroidomegaly. RESPIRATORY: Non-labored respirations and equal bilateral excursions. CARDIOVASCULAR: Irregular rate. Regular rhythm. ABDOMEN: Ostomy present with liquid stool. RAJENDRA present and serosanguinous. Dressing clean, dry and intact. MUSCULOSKELETAL: No gross deformity of the lower extremities noted. No clubbing. No cyanosis. SKIN: Good skin turgor. Well perfused. NEUROLOGIC: Cranial nerves II through XII grossly intact. No focal or lateralizing signs. Has resting tremor of the right hand. PSYCH: Appropriate affect. Alert and oriented to person, place and time. CLINICAL LABS: Sodium low at 129. Creatinine normal 0.56. Albumin low 2.2. WBC normal 9.8. Hemoglobin stable 9.9. ASSESSMENT: 1. Perforated sigmoid diverticulitis status post colectomy with colostomy creation 2. Hyponatremia 3. Hypoalbuminemia 4. Moderate protein malnutrition on TPN. 5. Resting tremor PLAN: 1. Continue TPN 2. Would benefit from PT/OT for rehab needs 3. Adjust diet for lactose intolerance. Objective - Vital Signs Vital signs: Vital Signs Temp 98.0 F 01/21/21 11:42 Pulse 80 01/21/21 11:42 Resp 16 01/21/21 11:42 BP 119/67 01/21/21 11:42 Pulse Ox 95 01/21/21 11:42 Intake & Output 01/20/21 01/21/21 01/21/21 18:59 06:59 18:59 Output Total 2200 70 Balance -2200 -70 Weight 72.575 kg Output: Drainage 70 Right Abdomen 70 Urine 2100 Uretheral (Clark) 1300 Stool 100 Other: Voiding Method Indwelling Catheter Indwelling Catheter Incontinent # Voids 2 1 1 - Labs CBC & Chem 7: 01/20/21 07:05 01/21/21 06:55 Labs: Abnormal Lab Results - Last 24 Hours (Table) 01/20/21 01/20/21 01/21/21 Range/Units 14:48 17:48 06:55 Sodium 133 L 129 L (135-145) mmol/L Chloride 96 L (98-107) mmol/L BUN 22 H (7-17) mg/dL Glucose 115 H (74-99) mg/dL POC Glucose (mg/dL) 136 H (75-99) mg/dL Calcium 8.3 L (8.4-10.2) mg/dL Total Protein 4.4 L (6.3-8.2) g/dL Albumin 2.2 L (3.5-5.0) g/dL 01/21/21 Range/Units 11:44 Sodium (135-145) mmol/L Chloride (98-107) mmol/L BUN (7-17) mg/dL Glucose (74-99) mg/dL POC Glucose (mg/dL) 136 H (75-99) mg/dL Calcium (8.4-10.2) mg/dL Total Protein (6.3-8.2) g/dL Albumin (3.5-5.0) g/dL Microbiology - Last 24 Hours (Table) 01/16/21 12:31 Anaerobic Culture - Final Other - Other Gram Positive Bacilli 01/16/21 12:31 Anaerobic Culture - Final Other - Other Coagulase Negative Staph Assessment and Plan (1) Perforated sigmoid colon Current Visit: Yes Status: Acute Code(s): K63.1 - PERFORATION OF INTESTINE (NONTRAUMATIC) SNOMED Code(s): 190249923 (2) Abdominal pain Current Visit: Yes Status: Acute Code(s): R10.9 - UNSPECIFIED ABDOMINAL PAIN SNOMED Code(s): 29635044 (3) Diverticulitis Current Visit: Yes Status: Acute Code(s): K57.92 - DVTRCLI OF INTEST, PART UNSP, W/O PERF OR ABSCESS W/O BLEED SNOMED Code(s): 132317259 (4) HTN (hypertension) Current Visit: No Status: Acute Code(s): I10 - ESSENTIAL (PRIMARY) HYPERTENSION SNOMED Code(s): 40275311 (5) Hyperlipemia Current Visit: No Status: Acute Code(s): E78.5 - HYPERLIPIDEMIA, UNSPECIFIED SNOMED Code(s): 01310535 (6) Hyponatremia Current Visit: No Status: Acute Code(s): E87.1 - HYPO-OSMOLALITY AND HYPONATREMIA SNOMED Code(s): 95391310
[2021-01-21] MEDS: MAGNESIUM SULFATE-D5W PMX 1 GM in DEXTROSE/WATER 1 100ML.BAG IVPB SCH ×2 (15:06→16:11)
[2021-01-21] MEDS: POTASSIUM CHLORIDE 20 MEQ in WATER FOR INJECTION 1 100ML.BAG IVPB SCH ×2 (17:09→19:16)
[2021-01-21 17:17] LABS: Glucose,Whole Blood 144 mg/dL (75-99)
[2021-01-21] MEDS ORDERED: WARFARIN 5 MG TAB PO ONE (18:00)
--- NOTE | 2021-01-21 18:13 | PN ---
PROGRESS NOTE DATE OF SERVICE: 01/21/2021 REASON FOR FOLLOWUP: Abdominal abscess from perforated diverticulitis. INTERVAL HISTORY: Patient is currently afebrile. The patient is breathing comfortably on room air. Patient denies having any chest pain. No shortness of breath, cough; still having some abdominal pain but no worsening. PHYSICAL EXAMINATION: Blood pressure is 119/67, pulse of 80, temperature 98. She is 95% on room air. General description: The patient is an elderly female lying in bed in no distress. Respiratory system: Unlabored breathing, clear to auscultation anteriorly. Heart: S1-S2 regular rate and rhythm. Abdomen: Soft. Mildly distended. LABS: BUN of 22, creatinine 0.56. DIAGNOSTIC IMPRESSION AND PLAN: Patient with abdominal abscess, perforated diverticulitis failing medical therapy. Abdominal culture positive for Genia, gram positive with anaerobes. The patient is currently covered with cefepime, vancomycin, Flagyl and Eraxis to continue while monitoring clinical course closely. Continue supportive care. MMODL / IJN: [id number] / [facility]erna
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
[2021-01-21] MEDS: ZOLPIDEM 5 MG TAB PO SCH (20:23)
[2021-01-21] MEDS: ANIDULAFUNGIN 100 MG in SODIUM CHLORIDE 0.9% 100 ML IVPB SCH (23:10)
[2021-01-22 00:39] LABS: Glucose,Whole Blood 109 mg/dL (75-99)
[2021-01-22] MEDS: CEFEPIME 2 GM in SODIUM CHLORIDE 0.9% 100 ML IVPB SCH ×2 (04:17→16:39)
[2021-01-22 05:55] LABS: Glucose,Whole Blood 148 mg/dL (75-99)
[2021-01-22 08:05] LABS: ALT <6 U/L (4-34); AST 24 U/L (14-36); African American GFR (CKD) >90 (>60 ml/min/1.73 sqM); Albumin 2.2 g/dL (3.5-5.0); Alkaline Phosphatase 60 U/L (38-126); Anion Gap 4 mmol/L; Blood Urea Nitrogen 22 mg/dL (7-17); Calcium 8.2 mg/dL (8.4-10.2); Carbon Dioxide 30 mmol/L (22-30); Chloride 95 mmol/L (98-107); Globulin 2.3 g/dL; Glucose 138 mg/dL (74-99); Non-African American GFR(CKD) >90 (>60 ml/min/1.73 sqM); Sodium 129 mmol/L (137-145); Total Bilirubin 0.5 mg/dL (0.2-1.3); Total Protein 4.5 g/dL (6.3-8.2)
[2021-01-22 08:11] LABS: INR 1.2 (<1.2); Prothrombin Time 12.2 sec (9.0-12.0)
[2021-01-22] MEDS: HYDROXYCHLOROQUINE SULFATE 200 MG TAB PO SCH ×2 (08:28→20:51)
[2021-01-22] MEDS: VANCOMYCIN 1,250 MG in SODIUM CHLORIDE 0.9% 250 ML IVPB SCH ×2 (08:28→20:50)
[2021-01-22] MEDS: LEVOTHYROXINE 25 MCG TAB PO SCH (08:29)
[2021-01-22] MEDS: CITALOPRAM HYDROBROMIDE 10 MG TAB PO SCH (08:29)
[2021-01-22] MEDS: HEPARIN SODIUM,PORCINE 5,000 UNIT/ML 1 ML VIAL SQ SCH ×2 (08:29→20:50)
[2021-01-22] MEDS: CARBIDOPA-LEVODOPA 25-100 MG 1 EACH TAB PO SCH ×4 (08:29→20:51)
[2021-01-22] MEDS: SODIUM CHLORIDE TAB 1 GM TAB PO SCH ×3 (08:29→20:51)
[2021-01-22] MEDS: METOPROLOL SUCCINATE (ER) 50 MG TAB.ER.24H PO SCH (08:29)
[2021-01-22] MEDS: LOSARTAN 50 MG TAB PO SCH (08:29)
[2021-01-22] MEDS: amLODIPine 10 MG TAB PO SCH (08:30)
[2021-01-22] MEDS: PANTOPRAZOLE 40 MG/10 ML VIAL IVP SCH (08:30)
[2021-01-22 11:12] LABS: Glucose,Whole Blood 138 mg/dL (75-99)
[2021-01-22] MEDS: metroNIDAZOLE-NS PMX 500 MG in SALINE 1 100ML.BAG IVPB SCH ×2 (11:13→14:55)
--- NOTE | 2021-01-22 14:16 | P.PN ---
Subjective Progress Note Date: 01/22/21 Principal diagnosis: This is a 80-year-old female, followed up for hyponatremia secondary to combination off TPN, pain and possibly SIADH. On 01/20/2021 day before Yesterday because of possible fluid overload she will was given Lasix. Sodium went down from 133-129. Her TPN contains 30 meq of sodium She was admitted with a pelvic abscess or diverticulitis, underwent exploratory laparotomy and sigmoid colectomy and colostomy. She still has drainage tubes coming out of her abdomen. She is in pain. No nausea vomiting. No shortness of breath. Her vital signs are stable She is starting to eat small amounts. Has any shortness of breath cough headache. No chest pain no fever no chills Objective - Vital Signs Vital signs: Vital Signs Temp 98.5 F 01/22/21 11:04 Pulse 95 01/22/21 11:04 Resp 16 01/22/21 11:04 BP 130/68 01/22/21 11:04 Pulse Ox 95 01/22/21 11:04 Intake & Output 01/21/21 01/22/21 01/22/21 18:59 06:59 18:59 Output Total 1100 800 Balance -1100 -800 Output: Urine 1100 800 Other: Voiding Method Incontinent Incontinent # Voids 1 She is awake alert oriented 3 HEENT exam no JVP neck is supple no facial asymmetry Lungs are clear to auscultation good air entry bilaterally Heart sounds unremarkable for any murmur rub gallop Abdomen soft slightly tender Extremity exam trace slight edema Neurologically awake alert but profoundly weak - Labs CBC & Chem 7: 01/20/21 07:05 01/22/21 07:40 Labs: Abnormal Lab Results - Last 24 Hours (Table) 01/20/21 01/21/21 01/22/21 Range/Units 14:48 17:15 00:36 PT (9.0-12.0) sec INR (<1.2) Sodium (137-145) mmol/L Chloride (98-107) mmol/L BUN (7-17) mg/dL Creatinine (0.52-1.04) mg/dL Glucose (74-99) mg/dL POC Glucose (mg/dL) 144 H 109 H (75-99) mg/dL Calcium (8.4-10.2) mg/dL Total Protein (6.3-8.2) g/dL Albumin (3.5-5.0) g/dL TSH 6.270 H (0.350-5.500) uIU/mL 01/22/21 01/22/21 01/22/21 Range/Units 05:54 07:23 07:40 PT 12.2 H (9.0-12.0) sec INR 1.2 H (<1.2) Sodium 129 L (137-145) mmol/L Chloride 95 L (98-107) mmol/L BUN 22 H (7-17) mg/dL Creatinine 0.50 L (0.52-1.04) mg/dL Glucose 138 H (74-99) mg/dL POC Glucose (mg/dL) 148 H (75-99) mg/dL Calcium 8.2 L (8.4-10.2) mg/dL Total Protein 4.5 L (6.3-8.2) g/dL Albumin 2.2 L (3.5-5.0) g/dL TSH (0.350-5.500) uIU/mL 01/22/21 Range/Units 11:07 PT (9.0-12.0) sec INR (<1.2) Sodium (137-145) mmol/L Chloride (98-107) mmol/L BUN (7-17) mg/dL Creatinine (0.52-1.04) mg/dL Glucose (74-99) mg/dL POC Glucose (mg/dL) 138 H (75-99) mg/dL Calcium (8.4-10.2) mg/dL Total Protein (6.3-8.2) g/dL Albumin (3.5-5.0) g/dL TSH (0.350-5.500) uIU/mL Assessment and Plan Assessment: Impression 1. 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 A trial of Lasix was tried, sodium went down from 133-129 currently on sodium chloride tablets 1 g 3 times a day, on TPN with 40 mg of sodium. Sodium is 129 stable, creatinine 0.5 and BUN is 22 which may reflect high protein intake from the TPN 2. Status post diverticulitis and pelvic abscess status post exploratory lap and sigmoid colectomy and colostomy. 3. History of atrial fibrillation coronary artery disease seizure disorder Recommendation 1. Continue to hold Lasix and watch her fluid status and sodium 2. Maintain the sodium chloride 1 g 3 times a day 3. watch sodium, if sodium goes down will be assess her
--- NOTE | 2021-01-22 16:07 | P.PN ---
Subjective Progress Note Date: 01/22/21 CHIEF COMPLAINT: Diverticulitis HISTORY OF PRESENT ILLNESS: The patient is a 80-year-old female status post sigmoid colectomy with colostomy due to perforated diverticulitis and drainage of abscess, 01/16/2021. She is on TPN for nutrition. No new bowel movements. She reports intolerance for liquid diet which contains primarily milk. ROS: Has coronary artery disease, hypertensive heart disease with hyperlipidemia, has history of seizure disorders. No fevers or chills. No shortness of breath. PHYSICAL EXAM: VITAL SIGNS: Reviewed CONSTITUTIONAL: Well developed and in no acute distress. EYES: Conjuctivae without sclera icterus. Extraocular movements grossly intact. HEAD, EARS, NOSE, THROAT: Moist buccal mucosa. Head is atraumatic, normocephalic. Hears conversational speech. No nasal drainage. NECK: Supple. No thyroidomegaly. RESPIRATORY: Non-labored respirations and equal bilateral excursions. CARDIOVASCULAR: Irregular rate. Regular rhythm. ABDOMEN: Ostomy present with liquid stool. RAJENDRA present and serosanguinous. Dressing intact. MUSCULOSKELETAL: No gross deformity of the lower extremities noted. No clubbing. No cyanosis. SKIN: Good skin turgor. Well perfused. NEUROLOGIC: Cranial nerves II through XII grossly intact. No focal or lateralizing signs. Has resting tremor of the right hand. PSYCH: Appropriate affect. Alert and oriented to person, place and time. CLINICAL LABS: Sodium low at 129. Creatinine normal 0.5. Albumin low 2.2. ASSESSMENT: 1. Perforated sigmoid diverticulitis status post colectomy with colostomy creation 2. Hyponatremia 3. Hypoalbuminemia 4. Moderate protein malnutrition on TPN. 5. Resting tremor 6. Lactose intolerant. PLAN: 1. Continue TPN. 2. May benefit from outside food due to limitations on diet Objective - Vital Signs Vital signs: Vital Signs Temp 99.3 F 01/22/21 04:51 Pulse 75 01/22/21 04:51 Resp 16 01/22/21 04:51 BP 124/68 01/22/21 04:51 Pulse Ox 96 01/22/21 04:51 Intake & Output 01/21/21 01/22/21 01/22/21 18:59 06:59 18:59 Output Total 1100 800 Balance -1100 -800 Output: Urine 1100 800 Other: Voiding Method Incontinent Incontinent # Voids 1 - Labs CBC & Chem 7: 01/20/21 07:05 01/22/21 07:40 Labs: Abnormal Lab Results - Last 24 Hours (Table) 01/20/21 01/21/21 01/21/21 Range/Units 14:48 11:44 17:15 PT (9.0-12.0) sec INR (<1.2) Sodium (137-145) mmol/L Chloride (98-107) mmol/L BUN (7-17) mg/dL Creatinine (0.52-1.04) mg/dL Glucose (74-99) mg/dL POC Glucose (mg/dL) 136 H 144 H (75-99) mg/dL Calcium (8.4-10.2) mg/dL Total Protein (6.3-8.2) g/dL Albumin (3.5-5.0) g/dL TSH 6.270 H (0.350-5.500) uIU/mL 01/22/21 01/22/21 01/22/21 Range/Units 00:36 05:54 07:23 PT 12.2 H (9.0-12.0) sec INR 1.2 H (<1.2) Sodium (137-145) mmol/L Chloride (98-107) mmol/L BUN (7-17) mg/dL Creatinine (0.52-1.04) mg/dL Glucose (74-99) mg/dL POC Glucose (mg/dL) 109 H 148 H (75-99) mg/dL Calcium (8.4-10.2) mg/dL Total Protein (6.3-8.2) g/dL Albumin (3.5-5.0) g/dL TSH (0.350-5.500) uIU/mL 01/22/21 01/22/21 Range/Units 07:40 11:07 PT (9.0-12.0) sec INR (<1.2) Sodium 129 L (137-145) mmol/L Chloride 95 L (98-107) mmol/L BUN 22 H (7-17) mg/dL Creatinine 0.50 L (0.52-1.04) mg/dL Glucose 138 H (74-99) mg/dL POC Glucose (mg/dL) 138 H (75-99) mg/dL Calcium 8.2 L (8.4-10.2) mg/dL Total Protein 4.5 L (6.3-8.2) g/dL Albumin 2.2 L (3.5-5.0) g/dL TSH (0.350-5.500) uIU/mL Assessment and Plan (1) Perforated sigmoid colon Current Visit: Yes Status: Acute Code(s): K63.1 - PERFORATION OF INTESTINE (NONTRAUMATIC) SNOMED Code(s): 120312710 (2) Abdominal pain Current Visit: Yes Status: Acute Code(s): R10.9 - UNSPECIFIED ABDOMINAL PAIN SNOMED Code(s): 69007916 (3) Diverticulitis Current Visit: Yes Status: Acute Code(s): K57.92 - DVTRCLI OF INTEST, PART UNSP, W/O PERF OR ABSCESS W/O BLEED SNOMED Code(s): 834387900 (4) HTN (hypertension) Current Visit: No Status: Acute Code(s): I10 - ESSENTIAL (PRIMARY) HYPERTENSION SNOMED Code(s): 64725515 (5) Hyperlipemia Current Visit: No Status: Acute Code(s): E78.5 - HYPERLIPIDEMIA, UNSPECIFIED SNOMED Code(s): 62556307 (6) Hyponatremia Current Visit: No Status: Acute Code(s): E87.1 - HYPO-OSMOLALITY AND HYPONATREMIA SNOMED Code(s): 20227845
[2021-01-22 17:14] LABS: Glucose,Whole Blood 135 mg/dL (75-99)
[2021-01-22] MEDS ORDERED: WARFARIN 7.5 MG TAB PO ONE (18:00)
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
--- NOTE | 2021-01-22 19:57 | PN ---
PROGRESS NOTE DATE OF SERVICE: 01/22/2021 REASON FOR FOLLOWUP: Abdominal abscess from perforated diverticulitis. INTERVAL HISTORY: Patient is currently afebrile. The patient is feeling slightly better. Did have slight improvement , she eats so far the lunch. No chest pain, shortness of breath or cough. Currently on room air. PHYSICAL EXAMINATION: Blood pressure 130/68 with a pulse of 95, temperature 98.5. She is 95% on room air. General description is an elderly female lying in bed in no distress. Respiratory system: Unlabored breathing, clear to auscultation anteriorly. Heart S1, S2. Regular rate and rhythm. Abdomen: Soft, mildly tender. No guarding. No rigidity. LABS: Abdominal culture with Genia, gram-positive bacilli, anaerobes and coag- negative Staph. DIAGNOSTIC IMPRESSION AND PLAN: Patient with abdominal abscess from perforated diverticulitis. This patient's culture shows Genia coag negative Staph and gram-positive anaerobe bacilli. Plan is for a PICC line and Eraxis, vancomycin along with oral Cipro and Flagyl for about 10 days and close outpatient followup. MMODL / IJN: [id number] / FABRICE
[2021-01-22] MEDS: ZOLPIDEM 5 MG TAB PO SCH (20:51)
[2021-01-22 23:44] LABS: Glucose,Whole Blood 133 mg/dL (75-99)
[2021-01-23] MEDS: ANIDULAFUNGIN 100 MG in SODIUM CHLORIDE 0.9% 100 ML IVPB SCH (00:35)
[2021-01-23] MEDS: metroNIDAZOLE-NS PMX 500 MG in SALINE 1 100ML.BAG IVPB SCH ×3 (01:56→16:51)
[2021-01-23] MEDS: CEFEPIME 2 GM in SODIUM CHLORIDE 0.9% 100 ML IVPB SCH ×2 (06:00→18:20)
[2021-01-23 06:05] LABS: Glucose,Whole Blood 84 mg/dL (75-99)
[2021-01-23] MEDS: VANCOMYCIN 1,250 MG in SODIUM CHLORIDE 0.9% 250 ML IVPB SCH ×2 (08:05→22:10)
[2021-01-23 08:11] LABS: Basophils % (A) 0 %; Eosinophils # (A) 0.2 k/uL (0-0.7); Eosinophils % (A) 2 %; HCT 30.7 % (34.0-46.0); HGB 10.7 gm/dL (11.4-16.0); Lymphocytes # (A) 0.5 k/uL (1.0-4.8); Lymphocytes % (A) 5 %; MCH 33.6 pg (25.0-35.0); MCHC 34.8 g/dL (31.0-37.0); MCV 96.4 fL (80.0-100.0); Mean Platelet Volume 8.4; Monocytes # (A) 0.5 k/uL (0-1.0); Monocytes % (A) 6 %; Neutrophils # (A) 8.1 k/uL (1.3-7.7); Neutrophils % (A) 86 %; Platelet Count 185 k/uL (150-450); RBC 3.18 m/uL (3.80-5.40); RDW 14.6 % (11.5-15.5); WBC 9.4 k/uL (3.8-10.6)
[2021-01-23] MEDS: METOPROLOL SUCCINATE (ER) 50 MG TAB.ER.24H PO SCH (09:05)
[2021-01-23] MEDS: PANTOPRAZOLE 40 MG/10 ML VIAL IVP SCH (09:05)
[2021-01-23] MEDS: amLODIPine 10 MG TAB PO SCH (09:05)
[2021-01-23] MEDS: HEPARIN SODIUM,PORCINE 5,000 UNIT/ML 1 ML VIAL SQ SCH ×2 (09:05→22:07)
[2021-01-23] MEDS: LOSARTAN 50 MG TAB PO SCH (09:05)
[2021-01-23] MEDS: LEVOTHYROXINE 25 MCG TAB PO SCH (09:06)
[2021-01-23] MEDS: HYDROXYCHLOROQUINE SULFATE 200 MG TAB PO SCH (09:06)
[2021-01-23] MEDS: CARBIDOPA-LEVODOPA 25-100 MG 1 EACH TAB PO SCH ×4 (09:06→22:07)
[2021-01-23] MEDS: SODIUM CHLORIDE TAB 1 GM TAB PO SCH ×3 (09:06→22:07)
[2021-01-23] MEDS: CITALOPRAM HYDROBROMIDE 10 MG TAB PO SCH (09:06)
[2021-01-23] MEDS: FAT EMULSION 20% 250 ML in EMPTY BAG 1 BAG IV SCH (09:13)
[2021-01-23 09:24] LABS: INR 1.24 (0.90-1.11); Prothrombin Time 13.3 sec (9.9-11.9)
[2021-01-23 10:03] LABS: African American GFR (CKD) 105.2 (60.0-200.0); Anion Gap 5.7 mmol/L (4.00-12.00); Calcium 8.3 mg/dL (8.7-10.3); Carbon Dioxide 28.3 mmol/L (21.6-31.8); Non-African American GFR(CKD) 90.8 (60.0-200.0); Phosphorus 3.1 mg/dL (2.4-5.1); Potassium 4.2 mmol/L (3.5-5.5)
--- NOTE | 2021-01-23 11:36 | P.PN ---
Subjective Progress Note Date: 01/23/21 CHIEF COMPLAINT: Abdominal pain HISTORY OF PRESENT ILLNESS: Patient is status post sigmoid colectomy with end colostomy and excision of left fallopian tube for diverticulitis with pelvic abscess. She reports that her pain is controlled. She denies any vomiting. She did have some nausea this morning. Her ostomy is functioning. RAJENDRA drain with sanguinous output. Afebrile. WBC 9.4 Hgb 10.7 INR 1.24 sodium 131 potassium 4.2 creatinine 0.5 PHYSICAL EXAM: VITAL SIGNS: Reviewed. GENERAL: Well-developed in no acute distress. HEENT: No sclera icterus. Extraocular movements grossly intact. Moist buccal mucosa. Head is atraumatic, normocephalic. ABDOMEN: Soft. Dressing clean dry and intact. Brown stool and air noted in ostomy bag. RAJENDRA drain minimal sanguinous fluid NEUROLOGIC: Alert and oriented. Cranial nerves II through XII grossly intact. ASSESSMENT: 1. Diverticulitis with perforation and pelvic abscess status post sigmoid colectomy with end colostomy and excision of left fallopian tube on 01/16/2021 2. Anemia status post blood transfusion during this admission 3. Hyponatremia followed by nephrology PLAN: -continue full liquid diet -Ostomy nurse teaching today -Continue TPN for nutrition support -Continue IV antibiotics per ID -Continue pain medication as needed -Encouraged patient to increase activity and to use incentive spirometer -GI prophylaxis Protonix and DVT prophylaxis subcu heparin Physician Infusion Pharmacist note has been reviewed by physician. Signing provider agrees with the documented findings, assessment, and plan of care. Objective - Vital Signs Vital signs: Vital Signs Temp 98.9 F 01/23/21 05:00 Pulse 75 01/23/21 05:00 Resp 16 01/23/21 05:00 BP 123/70 01/23/21 05:00 Pulse Ox 96 01/23/21 05:00 Intake & Output 01/22/21 01/23/21 01/23/21 18:59 06:59 18:59 Intake Total 1043 Output Total 1300 900 Balance -1300 143 Intake: Intake, IV Titration 1043 Amount Mvi, Adult No.4 with Vit 1043 K 10 ml Trace (Conc-1Ml/ Dose) 1 ml Sodium Acetate 20 meq Sodium Chloride 4Meq/ml Vial 48 meq Magnesium Sulfate gm 1 gm Potassium Chloride 16 meq In Amino Acid 5%-D15w +Lytes*E* 1,000 ml @ 70 mls/hr IV .BY DURATION [facility] Rx#:[id number] Output: Urine 1300 800 Stool 100 Other: Voiding Method Incontinent - Labs CBC & Chem 7: 01/23/21 05:59 01/23/21 05:59 Labs: Abnormal Lab Results - Last 24 Hours (Table) 01/22/21 01/22/21 01/23/21 Range/Units 16:59 23:43 05:59 RBC (3.80-5.40) m/uL Hgb (11.4-16.0) gm/dL Hct (34.0-46.0) % Neutrophils # (1.3-7.7) k/uL Lymphocytes # (1.0-4.8) k/uL PT 13.3 H (9.9-11.9) sec INR 1.24 H (0.90-1.11) Sodium (135-145) mmol/L Creatinine (0.6-1.5) mg/dL BUN/Creatinine Ratio (12.00-20.00) Ratio POC Glucose (mg/dL) 135 H 133 H (75-99) mg/dL Calcium (8.7-10.3) mg/dL 01/23/21 01/23/21 Range/Units 05:59 05:59 RBC 3.18 L (3.80-5.40) m/uL Hgb 10.7 L (11.4-16.0) gm/dL Hct 30.7 L (34.0-46.0) % Neutrophils # 8.1 H (1.3-7.7) k/uL Lymphocytes # 0.5 L (1.0-4.8) k/uL PT (9.9-11.9) sec INR (0.90-1.11) Sodium 131 L (135-145) mmol/L Creatinine 0.5 L (0.6-1.5) mg/dL BUN/Creatinine Ratio 42.00 H (12.00-20.00) Ratio POC Glucose (mg/dL) (75-99) mg/dL Calcium 8.3 L (8.7-10.3) mg/dL
[2021-01-23 12:16] LABS: Glucose,Whole Blood 139 mg/dL (75-99)
[2021-01-23] MEDS: ACETAMINOPHEN TAB 325 MG TAB PO PRN (13:13)
--- NOTE | 2021-01-23 15:23 | PN ---
PROGRESS NOTE Patient is seen for followup for hyponatremia, serum sodium currently increased to about 131 mEq/L. She is maintained on sodium chloride tabs. Patient is status post diuresis as well for volume overload. She is currently on TPN. She has been advised to increase oral intake, but patient has not been eating much. She is lactose- intolerant and is currently maintained on a liquid diet. PHYSICAL EXAMINATION: On examination today patient is comfortable, awake, not in any acute distress. Blood pressure was 120/69, heart rate 78 per minute. She is afebrile. EXAMINATION OF THE HEART: S1 and S2. EXAMINATION OF LUNGS: Bilateral breath sounds are heard. ABDOMEN: Soft, non-tender. Examination of lower extremities shows no significant edema. [employer] exam is grossly intact. LABS: Labs show sodium 131, potassium 4.2, BUN 21, creatinine 0.5. ASSESSMENT: 1. Hyponatremia, initially hypervolemic, currently euvolemic, status post diuresis. Currently maintained on 1 gram of sodium chloride twice a day. Patient is maintained on TPN. She is encouraged to increase oral protein intake as well, as she is allowed clear liquids now. 2. Status post diverticulitis, pelvic abscess, status post explorative laparotomy, sigmoid colectomy and colostomy. 3. History of atrial fibrillation. PLAN: Continue with sodium chloride tabs. Repeat labs in a.m. Encourage increased oral protein intake. MMODL / IJN: [id number] /
--- NOTE | 2021-01-23 16:06 | US ---
EXAMINATION TYPE: US venous doppler duplex LE RT DATE OF EXAM: 01/23/2021 3:55 PM COMPARISON: NONE CLINICAL HISTORY: pain right upper leg. right groin pain, no h/o dvt, post op diverticulitis surgery SIDE PERFORMED: Right TECHNIQUE: The lower extremity deep venous system is examined utilizing real time linear array sonog linus with graded compression, doppler sonography and color-flow sonography. VESSELS IMAGED: Common Femoral Vein Deep Femoral Vein Greater Saphenous Vein * Femoral Vein Popliteal Vein Small Saphenous Vein * Proximal Calf Veins (* superficial vessels) Right Leg: Negative for DVT, limited compression images behind knee because patient could not move k ramírez IMPRESSION: No evidence for DVT at this time.
[2021-01-23 17:33] LABS: Glucose,Whole Blood 141 mg/dL (75-99)
[2021-01-23] MEDS ORDERED: WARFARIN 7.5 MG TAB PO ONE (18:00)
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
[2021-01-23] MEDS: ZOLPIDEM 5 MG TAB PO SCH (22:07)
[2021-01-23] MEDS: CYCLOBENZAPRINE 5 MG TAB PO PRN (22:36)
--- NOTE | 2021-01-23 23:52 | PN ---
PROGRESS NOTE DATE OF SERVICE: 01/23/2021 REASON FOR FOLLOWUP: Abdominal abscess from perforated diverticulitis. INTERVAL HISTORY: Patient is currently afebrile. The patient is breathing comfortably. Patient denies having any chest pain, shortness of breath or cough. Abdominal pain is currently controlled. PHYSICAL EXAMINATION: Blood pressure 119/71 with a pulse of 74, temperature 98.2. She is 97% on room air. General description: The patient is a middle-aged female lying in bed in no distress. Respiratory system: Unlabored breathing, clear to auscultation anteriorly. Heart S1, S2. Regular rate and rhythm. ABDOMEN: Soft, no tenderness. LABS: Hemoglobin is 10.7, white count of 9.4, BUN of 21, creatinine 0.5. DIAGNOSTIC IMPRESSION AND PLAN: Patient with abdominal abscess from ruptured diverticulitis, status post diverting colostomy. Abdominal culture positive for Genia coagulase negative Staph and gram- positive. Patient is covered with Cefepime and vancomycin, Flagyl finishing therapy with Eraxis, vancomycin; Cipro and oral Flagyl another 7-10 days and close outpatient followup. MMODL / IJN: [id number] / FABRICE
[2021-01-24] MEDS: ANIDULAFUNGIN 100 MG in SODIUM CHLORIDE 0.9% 100 ML IVPB SCH ×2 (00:35→23:57)
[2021-01-24 00:52] LABS: Glucose,Whole Blood 102 mg/dL (75-99)
[2021-01-24] MEDS: metroNIDAZOLE-NS PMX 500 MG in SALINE 1 100ML.BAG IVPB SCH ×3 (02:37→16:04)
[2021-01-24] MEDS: CEFEPIME 2 GM in SODIUM CHLORIDE 0.9% 100 ML IVPB SCH ×2 (05:35→17:27)
[2021-01-24 05:57] LABS: INR 1.5 (<1.2); Prothrombin Time 14.8 sec (9.0-12.0)
[2021-01-24 05:59] LABS: Glucose,Whole Blood 154 mg/dL (75-99)
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
[2021-01-24 06:25] LABS: African American GFR (CKD) >90 (>60 ml/min/1.73 sqM); Anion Gap 1 mmol/L; Blood Urea Nitrogen 23 mg/dL (7-17); Calcium 8.1 mg/dL (8.4-10.2); Carbon Dioxide 29 mmol/L (22-30); Chloride 98 mmol/L (98-107); Glucose 126 mg/dL (74-99); Non-African American GFR(CKD) >90 (>60 ml/min/1.73 sqM); Phosphorus 2.9 mg/dL (2.5-4.5); Potassium 4.1 mmol/L (3.5-5.1); Sodium 128 mmol/L (137-145)
[2021-01-24] MEDS: VANCOMYCIN 1,250 MG in SODIUM CHLORIDE 0.9% 250 ML IVPB SCH ×2 (09:06→18:57)
[2021-01-24] MEDS: amLODIPine 10 MG TAB PO SCH (09:18)
[2021-01-24] MEDS: LEVOTHYROXINE 25 MCG TAB PO SCH (09:18)
[2021-01-24] MEDS: CARBIDOPA-LEVODOPA 25-100 MG 1 EACH TAB PO SCH ×4 (09:19→21:15)
[2021-01-24] MEDS: LOSARTAN 50 MG TAB PO SCH (09:19)
[2021-01-24] MEDS: METOPROLOL SUCCINATE (ER) 50 MG TAB.ER.24H PO SCH (09:19)
[2021-01-24] MEDS: CITALOPRAM HYDROBROMIDE 10 MG TAB PO SCH (09:19)
[2021-01-24] MEDS: HEPARIN SODIUM,PORCINE 5,000 UNIT/ML 1 ML VIAL SQ SCH ×2 (09:19→21:20)
[2021-01-24] MEDS: SODIUM CHLORIDE TAB 1 GM TAB PO SCH ×3 (09:20→21:15)
[2021-01-24] MEDS: PANTOPRAZOLE 40 MG/10 ML VIAL IVP SCH (09:20)
--- NOTE | 2021-01-24 09:40 | P.PN ---
Subjective Patient is seen in follow-up for hyponatremia. Sodium level 128 today. She is receiving TPN. Oral intake poor. Good urine output. No chest pain or shortness of breath. Vital signs are stable. General: The patient appeared well nourished and normally developed. HEENT: Head exam is unremarkable. Neck is without jugular venous distension. LUNGS: Breath sounds decreased. HEART: Rate and Rhythm are regular. ABDOMEN: Soft, nontender. EXTREMITITES: No edema. Objective - Vital Signs Vital signs: Vital Signs Temp 98.4 F 01/24/21 05:00 Pulse 72 01/24/21 05:00 Resp 16 01/24/21 05:00 BP 130/74 01/24/21 05:00 Pulse Ox 95 01/24/21 05:00 Intake & Output 01/23/21 01/24/21 01/24/21 18:59 06:59 18:59 Output Total 0 0 Balance 0 0 Weight 72.575 kg Output: Drainage 0 0 Right Abdomen 0 0 Other: Voiding Method Diaper Diaper Incontinent Incontinent - Labs CBC & Chem 7: 01/23/21 05:59 01/24/21 05:08 Labs: Abnormal Lab Results - Last 24 Hours (Table) 01/23/21 01/23/21 01/23/21 Range/Units 05:59 12:04 17:30 PT (9.0-12.0) sec INR (<1.2) Sodium 131 L (135-145) mmol/L BUN (7-17) mg/dL Creatinine 0.5 L (0.6-1.5) mg/dL BUN/Creatinine Ratio 42.00 H (12.00-20.00) Ratio Glucose (74-99) mg/dL POC Glucose (mg/dL) 139 H 141 H (75-99) mg/dL Calcium 8.3 L (8.7-10.3) mg/dL 01/24/21 01/24/21 01/24/21 Range/Units 00:46 05:08 05:08 PT 14.8 H (9.0-12.0) sec INR 1.5 H (<1.2) Sodium 128 L (135-145) mmol/L BUN 23 H (7-17) mg/dL Creatinine 0.49 L (0.6-1.5) mg/dL BUN/Creatinine Ratio (12.00-20.00) Ratio Glucose 126 H (74-99) mg/dL POC Glucose (mg/dL) 102 H (75-99) mg/dL Calcium 8.1 L (8.7-10.3) mg/dL 01/24/21 Range/Units 05:58 PT (9.0-12.0) sec INR (<1.2) Sodium (135-145) mmol/L BUN (7-17) mg/dL Creatinine (0.6-1.5) mg/dL BUN/Creatinine Ratio (12.00-20.00) Ratio Glucose (74-99) mg/dL POC Glucose (mg/dL) 154 H (75-99) mg/dL Calcium (8.7-10.3) mg/dL Assessment and Plan Plan: Assessment: 1. Hyponatremia, euvolemic. Sodium level 128 today. Receiving TPN. Also on sodium chloride tablets. On Celexa which can induce SIADH. Cortisol level normal. 2. Diverticulitis and pelvic abscess status post exploratory laparotomy, sigmoid colectomy and colostomy. 3. Benign hypertension. Controlled. Plan: Maintain sodium chloride tabs. 1200 mL fluid restriction. Encouraged oral intake particularly protein. Check serum and urine osmolality and urine sodium level. Check TSH. Will give samsca if no improvement in sodium level tomorrow.
[2021-01-24 11:30] LABS: Glucose,Whole Blood 134 mg/dL (75-99)
[2021-01-24] MEDS: ACETAMINOPHEN TAB 325 MG TAB PO PRN (11:34)
--- NOTE | 2021-01-24 12:00 | P.PN ---
Subjective Progress Note Date: 01/24/21 CHIEF COMPLAINT: Abdominal pain HISTORY OF PRESENT ILLNESS: Patient is status post sigmoid colectomy with end colostomy and excision of left fallopian tube for diverticulitis with pelvic abscess. She reports that her pain is controlled. She denies any vomiting. Her oral intake is poor. Her ostomy is functioning. RAJENDRA drain with sanguinous output. Afebrile. WBC 9.4 INR 1.5 sodium down to 128 creatinine 0.49 patient followed by nephrology they have place patient on fluid restrictions regarding the hyponatremia PHYSICAL EXAM: VITAL SIGNS: Reviewed. GENERAL: Well-developed in no acute distress. HEENT: No sclera icterus. Extraocular movements grossly intact. Moist buccal mucosa. Head is atraumatic, normocephalic. ABDOMEN: Soft. Dressing clean dry and intact. Brown stool and air noted in ostomy bag. RAJENDRA drain minimal sanguinous fluid NEUROLOGIC: Alert and oriented. Cranial nerves II through XII grossly intact. ASSESSMENT: 1. Diverticulitis with perforation and pelvic abscess status post sigmoid colectomy with end colostomy and excision of left fallopian tube on 01/16/2021 2. Anemia status post blood transfusion during this admission 3. Hyponatremia followed by nephrology PLAN: -Continue low fiber diet - will pull RAJENDRA drain -Continue TPN for nutrition support -Continue IV antibiotics per ID -Continue pain medication as needed. Add Ultram -Encouraged patient to increase activity and to use incentive spirometer -Patient will require placement at time of discharge -GI prophylaxis Protonix and DVT prophylaxis subcu heparin Physician Mail Truck Driver note has been reviewed by physician. Signing provider agrees with the documented findings, assessment, and plan of care. Objective - Vital Signs Vital signs: Vital Signs Temp 98.2 F 01/24/21 11:01 Pulse 72 01/24/21 11:01 Resp 16 01/24/21 11:01 BP 123/72 01/24/21 11:01 Pulse Ox 97 01/24/21 11:01 Intake & Output 01/23/21 01/24/21 01/24/21 18:59 06:59 18:59 Output Total 0 0 0 Balance 0 0 0 Weight 72.575 kg Output: Drainage 0 0 0 Right Abdomen 0 0 0 Other: Voiding Method Diaper Diaper Incontinent Incontinent - Labs CBC & Chem 7: 01/23/21 05:59 01/24/21 05:08 Labs: Abnormal Lab Results - Last 24 Hours (Table) 01/23/21 01/23/21 01/24/21 Range/Units 12:04 17:30 00:46 PT (9.0-12.0) sec INR (<1.2) Sodium (137-145) mmol/L BUN (7-17) mg/dL Creatinine (0.52-1.04) mg/dL Glucose (74-99) mg/dL POC Glucose (mg/dL) 139 H 141 H 102 H (75-99) mg/dL Osmolality (280-301) mosm/kg Calcium (8.4-10.2) mg/dL 01/24/21 01/24/21 01/24/21 Range/Units 05:08 05:08 05:08 PT 14.8 H (9.0-12.0) sec INR 1.5 H (<1.2) Sodium 128 L (137-145) mmol/L BUN 23 H (7-17) mg/dL Creatinine 0.49 L (0.52-1.04) mg/dL Glucose 126 H (74-99) mg/dL POC Glucose (mg/dL) (75-99) mg/dL Osmolality 277 L (280-301) mosm/kg Calcium 8.1 L (8.4-10.2) mg/dL 01/24/21 01/24/21 Range/Units 05:58 11:02 PT (9.0-12.0) sec INR (<1.2) Sodium (137-145) mmol/L BUN (7-17) mg/dL Creatinine (0.52-1.04) mg/dL Glucose (74-99) mg/dL POC Glucose (mg/dL) 154 H 134 H (75-99) mg/dL Osmolality (280-301) mosm/kg Calcium (8.4-10.2) mg/dL
[2021-01-24] MEDS ORDERED: ONDANSETRON 4 MG/2 ML VIAL IVP PRN (12:58)
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
[2021-01-24] MEDS: traMADol 50 MG TAB PO PRN (17:12)
[2021-01-24 17:21] LABS: Glucose,Whole Blood 122 mg/dL (75-99)
[2021-01-24] MEDS ORDERED: WARFARIN 7.5 MG TAB PO ONE (18:00)
[2021-01-24] MEDS: ZOLPIDEM 5 MG TAB PO SCH (21:15)
[2021-01-24] MEDS: CYCLOBENZAPRINE 5 MG TAB PO PRN (21:37)
[2021-01-25 00:47] LABS: Glucose,Whole Blood 126 mg/dL (75-99)
--- NOTE | 2021-01-25 02:37 | PN ---
PROGRESS NOTE DATE OF SERVICE: 01/24/2021. REASON FOR FOLLOWUP: Abdominal abscess. INTERVAL HISTORY: Patient is currently afebrile. Patient is breathing comfortably. The patient denies having any chest pain. No shortness of breath. No nausea, vomiting. Abdominal pain is currently controlled. Did have output in the colostomy bag. PHYSICAL EXAMINATION: Blood pressure 144/69, pulse of 82, temperature 98.3. She is 96% on 3 L nasal cannula. General description is an elderly female lying in bed in no distress. Respiratory system: Unlabored breathing, clear to auscultation anteriorly. Heart S1, S2. Regular rate and rhythm. ABDOMEN: Soft, no tenderness. LABS: BUN of 23, creatinine 0.49. DIAGNOSTIC IMPRESSION AND PLAN: Patient with abdominal abscess from ruptured sigmoid diverticulitis, status post drainage of the abscess. Culture has been positive for Coagulase negative Staph, Genia and gram-positive bacilli. Patient is covered with vanco and cefepime Flagyl. Continue current antibiotics course for about a week to finish a course of therapy. Continue supportive care. MMODL / IJN: [id number] / MTDD
[2021-01-25] MEDS: metroNIDAZOLE-NS PMX 500 MG in SALINE 1 100ML.BAG IVPB SCH ×4 (03:13→23:18)
[2021-01-25] MEDS: ACETAMINOPHEN TAB 325 MG TAB PO PRN ×2 (04:19→10:29)
[2021-01-25] MEDS: CEFEPIME 2 GM in SODIUM CHLORIDE 0.9% 100 ML IVPB SCH ×2 (05:40→17:25)
[2021-01-25] MEDS ORDERED: VANCOMYCIN TROUGH DUE 1 EACH MISC MISCELLANE ONE (06:00)
[2021-01-25 06:18] LABS: Glucose,Whole Blood 134 mg/dL (75-99)
[2021-01-25] MEDS: VANCOMYCIN 1,250 MG in SODIUM CHLORIDE 0.9% 250 ML IVPB SCH ×2 (07:59→19:23)
[2021-01-25 08:09] LABS: Basophils % (A) 0 %; Eosinophils # (A) 0.3 k/uL (0-0.7); Eosinophils % (A) 3 %; HGB 10.4 gm/dL (11.4-16.0); Lymphocytes # (A) 0.2 k/uL (1.0-4.8); Lymphocytes % (A) 3 %; MCH 33.2 pg (25.0-35.0); MCHC 34.6 g/dL (31.0-37.0); MCV 95.8 fL (80.0-100.0); Mean Platelet Volume 9.2; Monocytes # (A) 0.2 k/uL (0-1.0); Monocytes % (A) 3 %; Neutrophils # (A) 6.8 k/uL (1.3-7.7); Neutrophils % (A) 90 %; Platelet Count 118 k/uL (150-450); RBC 3.13 m/uL (3.80-5.40); RDW 14.9 % (11.5-15.5); WBC 7.5 k/uL (3.8-10.6)
[2021-01-25] MEDS: LEVOTHYROXINE 25 MCG TAB PO SCH (08:34)
[2021-01-25] MEDS: HEPARIN SODIUM,PORCINE 5,000 UNIT/ML 1 ML VIAL SQ SCH ×2 (08:34→20:52)
[2021-01-25] MEDS: CARBIDOPA-LEVODOPA 25-100 MG 1 EACH TAB PO SCH ×4 (08:34→20:53)
[2021-01-25] MEDS: amLODIPine 10 MG TAB PO SCH (08:34)
[2021-01-25] MEDS: SODIUM CHLORIDE TAB 1 GM TAB PO SCH ×3 (08:34→20:53)
[2021-01-25] MEDS: PANTOPRAZOLE 40 MG/10 ML VIAL IVP SCH (08:34)
[2021-01-25] MEDS: METOPROLOL SUCCINATE (ER) 50 MG TAB.ER.24H PO SCH (08:34)
[2021-01-25] MEDS: FAT EMULSION 20% 250 ML in EMPTY BAG 1 BAG IV SCH (08:35)
[2021-01-25] MEDS: CITALOPRAM HYDROBROMIDE 10 MG TAB PO SCH (08:35)
[2021-01-25] MEDS: LOSARTAN 50 MG TAB PO SCH (08:35)
--- NOTE | 2021-01-25 09:10 | P.PN ---
Subjective Patient is seen in follow-up for hyponatremia. Sodium level 128 as of yesterday. She is receiving TPN. Not tolerating much oral intake. Good urine output. No chest pain or shortness of breath. Hemodynamically stable. Vital signs are stable. General: The patient appeared well nourished and normally developed. HEENT: Head exam is unremarkable. Neck is without jugular venous distension. LUNGS: Breath sounds decreased. HEART: Rate and Rhythm are regular. ABDOMEN: Soft, nontender. EXTREMITITES: No edema. Objective - Vital Signs Vital signs: Vital Signs Temp 98.4 F 01/25/21 05:49 Pulse 94 01/25/21 05:00 Resp 16 01/25/21 05:00 BP 139/76 01/25/21 05:00 Pulse Ox 96 01/25/21 05:00 Intake & Output 01/24/21 01/25/21 01/25/21 18:59 06:59 18:59 Intake Total 1844 240 Output Total 700 100 Balance 1144 140 Intake: Intake, IV Titration 1048 Amount Mvi, Adult No.4 with Vit 1048 K 10 ml Trace (Conc-1Ml/ Dose) 1 ml Sodium Acetate 20 meq Sodium Chloride 4Meq/ml Vial 68 meq Magnesium Sulfate gm 1 gm Potassium Chloride 16 meq In Amino Acid 5%-D15w +Lytes*E* 1,000 ml @ 70 mls/hr IV .BY [facility]ATION [facility] Rx#:[id number] Oral 796 240 Output: Drainage 0 Right Abdomen 0 Urine 700 Stool 100 Other: Voiding Method Diaper Incontinent - Labs CBC & Chem 7: 01/25/21 05:55 01/24/21 05:08 Labs: Abnormal Lab Results - Last 24 Hours (Table) 01/24/21 01/24/21 01/24/21 Range/Units 05:08 11:02 17:12 RBC (3.80-5.40) m/uL Hgb (11.4-16.0) gm/dL Hct (34.0-46.0) % Plt Count (150-450) k/uL Lymphocytes # (1.0-4.8) k/uL POC Glucose (mg/dL) 134 H 122 H (75-99) mg/dL Osmolality 277 L (280-301) mosm/kg 01/25/21 01/25/21 01/25/21 Range/Units 00:45 05:55 06:17 RBC 3.13 L (3.80-5.40) m/uL Hgb 10.4 L (11.4-16.0) gm/dL Hct 30.0 L (34.0-46.0) % Plt Count 118 L (150-450) k/uL Lymphocytes # 0.2 L (1.0-4.8) k/uL POC Glucose (mg/dL) 126 H 134 H (75-99) mg/dL Osmolality (280-301) mosm/kg Assessment and Plan Plan: Assessment: 1. Hyponatremia, euvolemic. Sodium level 128 as of yesterday. Receiving TPN. Also on sodium chloride tablets. On Celexa which can induce SIADH. Cortisol level normal. Urine osmolality 474 and urine sodium 126. 2. Diverticulitis and pelvic abscess status post exploratory laparotomy, sigmoid colectomy and colostomy. 3. Benign hypertension. Controlled. Plan: Maintain sodium chloride tabs. 1200 mL fluid restriction. Encouraged oral intake particularly protein. Follow-up TSH. Follow-up morning labs. I will give her Samsca if no improvement in sodium level.
[2021-01-25 10:00] LABS: African American GFR (CKD) 99.1 (60.0-200.0); Anion Gap 3.7 mmol/L (4.00-12.00); Calcium 8.1 mg/dL (8.7-10.3); Carbon Dioxide 28.3 mmol/L (21.6-31.8); Non-African American GFR(CKD) 85.5 (60.0-200.0); Phosphorus 2.9 mg/dL (2.4-5.1); Potassium 4.1 mmol/L (3.5-5.5)
[2021-01-25 10:03] LABS: INR 1.85 (0.90-1.11); Prothrombin Time 19.4 sec (9.9-11.9)
--- NOTE | 2021-01-25 12:22 | P.PN ---
Subjective Progress Note Date: 01/25/21 CHIEF COMPLAINT: Abdominal pain HISTORY OF PRESENT ILLNESS: Patient is status post sigmoid colectomy with end colostomy and excision of left fallopian tube for diverticulitis with pelvic abscess. She reports that her pain is controlled. She denies any vomiting. Her oral intake is poor. Her ostomy is functioning. RAJENDRA drain has been removed. She did have a low-grade temp of 100.6 this morning. WBC 7.5 Hgb 10.4 sodium 130 potassium 4.1 creatinine 0.6 PHYSICAL EXAM: VITAL SIGNS: Reviewed. GENERAL: Well-developed in no acute distress. HEENT: No sclera icterus. Extraocular movements grossly intact. Moist buccal mucosa. Head is atraumatic, normocephalic. ABDOMEN: Soft. Nondistended nontender incision site clean dry and intact Brown stool and air noted in ostomy bag. NEUROLOGIC: Alert and oriented. Cranial nerves II through XII grossly intact. ASSESSMENT: 1. Diverticulitis with perforation and pelvic abscess status post sigmoid colectomy with end colostomy and excision of left fallopian tube on 01/16/2021 2. Anemia status post blood transfusion during this admission 3. Hyponatremia followed by nephrology PLAN: -Continue low fiber diet -Encourage patient to increase oral intake -Continue TPN for nutrition support -Continue IV antibiotics per ID -Continue pain medication as needed. -Encouraged patient to increase activity and to use incentive spirometer -Patient will require placement at time of discharge -GI prophylaxis Protonix and DVT prophylaxis subcu heparin Physician Inspector General note has been reviewed by physician. Signing provider agrees with the documented findings, assessment, and plan of care. Objective - Vital Signs Vital signs: Vital Signs Temp 97.5 F L 01/25/21 11:33 Pulse 92 01/25/21 11:33 Resp 16 01/25/21 11:33 BP 134/71 01/25/21 11:33 Pulse Ox 99 01/25/21 11:33 Intake & Output 01/24/21 01/25/21 01/25/21 18:59 06:59 18:59 Intake Total 1844 240 100 Output Total 700 100 Balance 1144 140 100 Intake: Intake, IV Titration 1048 Amount Mvi, Adult No.4 with Vit 1048 K 10 ml Trace (Conc-1Ml/ Dose) 1 ml Sodium Acetate 20 meq Sodium Chloride 4Meq/ml Vial 68 meq Magnesium Sulfate gm 1 gm Potassium Chloride 16 meq In Amino Acid 5%-D15w +Lytes*E* 1,000 ml @ 70 mls/hr IV .BY DURATION [facility] Rx#:[id number] Oral 796 240 100 Output: Drainage 0 Right Abdomen 0 Urine 700 Stool 100 Other: Voiding Method Diaper Diaper Incontinent Incontinent - Labs CBC & Chem 7: 01/25/21 05:55 01/25/21 05:55 Labs: Abnormal Lab Results - Last 24 Hours (Table) 01/24/21 01/25/21 01/25/21 Range/Units 17:12 00:45 05:55 RBC (3.80-5.40) m/uL Hgb (11.4-16.0) gm/dL Hct (34.0-46.0) % Plt Count (150-450) k/uL Lymphocytes # (1.0-4.8) k/uL PT 19.4 H (9.9-11.9) sec INR 1.85 H (0.90-1.11) Sodium (135-145) mmol/L Anion Gap (4.00-12.00) mmol/L BUN/Creatinine Ratio (12.00-20.00) Ratio Glucose (70-110) mg/dL POC Glucose (mg/dL) 122 H 126 H (75-99) mg/dL Calcium (8.7-10.3) mg/dL 01/25/21 01/25/21 01/25/21 Range/Units 05:55 05:55 06:17 RBC 3.13 L (3.80-5.40) m/uL Hgb 10.4 L (11.4-16.0) gm/dL Hct 30.0 L (34.0-46.0) % Plt Count 118 L (150-450) k/uL Lymphocytes # 0.2 L (1.0-4.8) k/uL PT (9.9-11.9) sec INR (0.90-1.11) Sodium 130 L (135-145) mmol/L Anion Gap 3.70 L (4.00-12.00) mmol/L BUN/Creatinine Ratio 40.00 H (12.00-20.00) Ratio Glucose 152 H (70-110) mg/dL POC Glucose (mg/dL) 134 H (75-99) mg/dL Calcium 8.1 L (8.7-10.3) mg/dL
[2021-01-25 12:32] LABS: Glucose,Whole Blood 181 mg/dL (75-99)
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
[2021-01-25 17:22] LABS: Glucose,Whole Blood 130 mg/dL (75-99)
[2021-01-25] MEDS ORDERED: WARFARIN 3 MG TAB PO ONE (18:00)
[2021-01-25] MEDS: ZOLPIDEM 5 MG TAB PO SCH (20:52)
--- NOTE | 2021-01-25 22:23 | PN ---
PROGRESS NOTE DATE OF SERVICE: 01/25/2021. REASON FOR FOLLOW UP: Abdominal abscess and perforated diverticulitis. INTERVAL HISTORY: The patient is currently afebrile. Patient is breathing comfortably. The patient denies having any chest pain, shortness of breath or cough. No vomiting. Did have output in the colostomy bag. PHYSICAL EXAMINATION: Blood pressure is 129/75, pulse of 72, temperature 98.5. She is 96% on 3 L nasal cannula. General description is an elderly female lying in bed in no distress. Respiratory system: Unlabored breathing, clear to auscultation anteriorly. Heart S1, S2. Regular rate and rhythm. ABDOMEN: Soft, no tenderness. LABS: Hemoglobin is 10.4, white count 7.5, BUN of 24, creatinine 0.6. DIAGNOSTIC IMPRESSION AND PLAN: Patient with abdominal abscess from perforated diverticulitis, status post diverting colostomy. Abdominal culture with Genia coagulase negative Staph and gram- positive bacilli. Plan to finish therapy with vancomycin and Eraxis, Cipro and Flagyl for about a week and close outpatient followup. MMODL / IJN: [id number] / MTDD
[2021-01-26] MEDS: ANIDULAFUNGIN 100 MG in SODIUM CHLORIDE 0.9% 100 ML IVPB SCH (00:28)
[2021-01-26 01:12] LABS: Glucose,Whole Blood 135 mg/dL (75-99)
[2021-01-26] MEDS: CEFEPIME 2 GM in SODIUM CHLORIDE 0.9% 100 ML IVPB SCH ×2 (05:36→17:54)
[2021-01-26 05:54] LABS: Glucose,Whole Blood 143 mg/dL (75-99)
[2021-01-26 06:32] LABS: INR 2.3 (<1.2); Prothrombin Time 22.3 sec (9.0-12.0)
[2021-01-26] MEDS: VANCOMYCIN 1,250 MG in SODIUM CHLORIDE 0.9% 250 ML IVPB SCH ×2 (08:08→19:16)
[2021-01-26] MEDS: HEPARIN SODIUM,PORCINE 5,000 UNIT/ML 1 ML VIAL SQ SCH (08:08)
[2021-01-26] MEDS: CITALOPRAM HYDROBROMIDE 10 MG TAB PO SCH (08:09)
[2021-01-26] MEDS: amLODIPine 10 MG TAB PO SCH (08:09)
[2021-01-26] MEDS: LOSARTAN 50 MG TAB PO SCH (08:09)
[2021-01-26] MEDS: LEVOTHYROXINE 25 MCG TAB PO SCH (08:09)
[2021-01-26] MEDS: CARBIDOPA-LEVODOPA 25-100 MG 1 EACH TAB PO SCH ×4 (08:09→20:55)
[2021-01-26] MEDS: SODIUM CHLORIDE TAB 1 GM TAB PO SCH ×3 (08:09→20:55)
[2021-01-26] MEDS: METOPROLOL SUCCINATE (ER) 50 MG TAB.ER.24H PO SCH (08:09)
[2021-01-26] MEDS: PANTOPRAZOLE 40 MG/10 ML VIAL IVP SCH (08:09)
--- NOTE | 2021-01-26 09:17 | P.PN ---
Subjective Patient is seen in follow-up for hyponatremia. Sodium level 130 as of yesterday. She is receiving TPN. Still not tolerating much oral intake. Good urine output. No chest pain or shortness of breath. Hemodynamically stable. Vital signs are stable. General: The patient appeared well nourished and normally developed. HEENT: Head exam is unremarkable. Neck is without jugular venous distension. LUNGS: Breath sounds decreased. HEART: Rate and Rhythm are regular. ABDOMEN: Soft, nontender. EXTREMITITES: No edema. Objective - Vital Signs Vital signs: Vital Signs Temp 98.1 F 01/26/21 05:00 Pulse 73 01/26/21 05:00 Resp 16 01/26/21 05:00 BP 126/72 01/26/21 05:00 Pulse Ox 99 01/26/21 05:00 Intake & Output 01/25/21 01/26/21 01/26/21 18:59 06:59 18:59 Intake Total 900 1798 Output Total 600 Balance 900 1198 Weight 72.575 kg Intake: Intake, IV Titration 1498 Amount Anidulafungin 100 mg In 100 Sodium Chloride 0.9% 100 ml @ 84 mls/hr IVPB DAILY @0000 [facility] Rx#:[id number] Mvi, Adult No.4 with Vit 1048 K 10 ml Trace (Conc-1Ml/ Dose) 1 ml Sodium Acetate 20 meq Sodium Chloride 4Meq/ml Vial 68 meq Magnesium Sulfate gm 1 gm Potassium Chloride 16 meq In Amino Acid 5%-D15w +Lytes*E* 1,000 ml @ 70 mls/hr IV .BY DURATION [facility] Rx#:[id number] Vancomycin 1,250 mg In 250 Sodium Chloride 0.9% 250 ml @ 125 mls/hr IVPB Q12H [facility] Rx#:[id number] metroNIDAZOLE-NS PMX 500 100 mg In Saline 1 100ml.bag @ 100 mls/hr IVPB Q8HR [facility] Rx#:[id number] Oral 900 300 Output: Urine 600 Other: Voiding Method Diaper Diaper Incontinent Incontinent - Labs CBC & Chem 7: 01/25/21 05:55 01/25/21 05:55 Labs: Abnormal Lab Results - Last 24 Hours (Table) 01/25/21 01/25/21 01/25/21 Range/Units 05:55 05:55 12:30 PT 19.4 H (9.9-11.9) sec INR 1.85 H (0.90-1.11) Sodium 130 L (135-145) mmol/L Anion Gap 3.70 L (4.00-12.00) mmol/L BUN/Creatinine Ratio 40.00 H (12.00-20.00) Ratio Glucose 152 H (70-110) mg/dL POC Glucose (mg/dL) 181 H (75-99) mg/dL Calcium 8.1 L (8.7-10.3) mg/dL 01/25/21 01/26/21 01/26/21 Range/Units 17:21 01:10 05:52 PT (9.9-11.9) sec INR (0.90-1.11) Sodium (135-145) mmol/L Anion Gap (4.00-12.00) mmol/L BUN/Creatinine Ratio (12.00-20.00) Ratio Glucose (70-110) mg/dL POC Glucose (mg/dL) 130 H 135 H 143 H (75-99) mg/dL Calcium (8.7-10.3) mg/dL 01/26/21 Range/Units 06:03 PT 22.3 H (9.9-11.9) sec INR 2.3 H (0.90-1.11) Sodium (135-145) mmol/L Anion Gap (4.00-12.00) mmol/L BUN/Creatinine Ratio (12.00-20.00) Ratio Glucose (70-110) mg/dL POC Glucose (mg/dL) (75-99) mg/dL Calcium (8.7-10.3) mg/dL Assessment and Plan Plan: Assessment: 1. Hyponatremia, euvolemic. Sodium level 130 as of yesterday. Receiving TPN. Also on sodium chloride tablets. On Celexa which can induce SIADH. Cortisol level normal. TSH normal. Urine osmolality 474 and urine sodium 126. 2. Diverticulitis and pelvic abscess status post exploratory laparotomy, sigmoid colectomy and colostomy. 3. Benign hypertension. Controlled. Plan: Maintain sodium chloride tabs. 1200 mL fluid restriction. Encouraged oral intake particularly protein.
[2021-01-26 10:29] LABS: African American GFR (CKD) 99.1 (60.0-200.0); Anion Gap 5.6 mmol/L (4.00-12.00); BUN/Creat Ratio 43.33 Ratio (12.00-20.00); Calcium 8.1 mg/dL (8.7-10.3); Carbon Dioxide 25.4 mmol/L (21.6-31.8); Non-African American GFR(CKD) 85.5 (60.0-200.0); Phosphorus 2.6 mg/dL (2.4-5.1); Potassium 3.9 mmol/L (3.5-5.5)
[2021-01-26 11:00] LABS: Magnesium 1.8 mg/dL (1.5-2.4)
[2021-01-26] MEDS: metroNIDAZOLE-NS PMX 500 MG in SALINE 1 100ML.BAG IVPB SCH ×3 (11:04→23:42)
[2021-01-26 12:00] LABS: Glucose,Whole Blood 110 mg/dL (75-99)
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
--- NOTE | 2021-01-26 14:34 | P.PN ---
Subjective Progress Note Date: 01/26/21 CHIEF COMPLAINT: Abdominal pain HISTORY OF PRESENT ILLNESS: Patient is status post sigmoid colectomy with end colostomy and excision of left fallopian tube for diverticulitis with pelvic abscess. Patient sitting up at bedside chair. She reports that her pain is controlled. She denies any vomiting. Her oral intake is poor. Her ostomy is functioning. RAJENDRA drain has been removed. Afebrile. INR 2.3 sodium 131 PHYSICAL EXAM: VITAL SIGNS: Reviewed. GENERAL: Well-developed in no acute distress. HEENT: No sclera icterus. Extraocular movements grossly intact. Moist buccal mucosa. Head is atraumatic, normocephalic. ABDOMEN: Soft. Nondistended nontender incision site clean dry and intact Brown stool and air noted in ostomy bag. NEUROLOGIC: Alert and oriented. Cranial nerves II through XII grossly intact. ASSESSMENT: 1. Diverticulitis with perforation and pelvic abscess status post sigmoid colectomy with end colostomy and excision of left fallopian tube on 01/16/2021 2. Anemia status post blood transfusion during this admission 3. Hyponatremia followed by nephrology PLAN: -Continue low fiber diet -Encourage patient to increase oral intake -Continue TPN for nutrition support -Continue IV antibiotics per ID -Continue pain medication as needed. -Encouraged patient to increase activity and to use incentive spirometer -Patient will require placement at time of discharge -GI prophylaxis Protonix and DVT prophylaxis subcu heparin Physician Gaming Investigator note has been reviewed by physician. Signing provider agrees with the documented findings, assessment, and plan of care. Objective - Vital Signs Vital signs: Vital Signs Temp 98.1 F 01/26/21 11:55 Pulse 81 01/26/21 11:55 Resp 16 01/26/21 11:55 BP 136/76 01/26/21 11:55 Pulse Ox 96 01/26/21 11:55 Intake & Output 01/25/21 01/26/21 01/26/21 18:59 06:59 18:59 Intake Total 900 1798 Output Total 600 Balance 900 1198 Weight 72.575 kg Intake: Intake, IV Titration 1498 Amount Anidulafungin 100 mg In 100 Sodium Chloride 0.9% 100 ml @ 84 mls/hr IVPB DAILY @0000 [facility] Rx#:[id number] Mvi, Adult No.4 with Vit 1048 K 10 ml Trace (Conc-1Ml/ Dose) 1 ml Sodium Acetate 20 meq Sodium Chloride 4Meq/ml Vial 68 meq Magnesium Sulfate gm 1 gm Potassium Chloride 16 meq In Amino Acid 5%-D15w +Lytes*E* 1,000 ml @ 70 mls/hr IV .BY DURATION [facility] Rx#:[id number] Vancomycin 1,250 mg In 250 Sodium Chloride 0.9% 250 ml @ 125 mls/hr IVPB Q12H [facility] Rx#:[id number] metroNIDAZOLE-NS PMX 500 100 mg In Saline 1 100ml.bag @ 100 mls/hr IVPB Q8HR [facility] Rx#:[id number] Oral 900 300 Output: Urine 600 Other: Voiding Method Diaper Diaper Diaper Incontinent Incontinent Incontinent - Labs CBC & Chem 7: 01/25/21 05:55 01/26/21 06:03 Labs: Abnormal Lab Results - Last 24 Hours (Table) 01/25/21 01/26/21 01/26/21 Range/Units 17:21 01:10 05:52 PT (9.0-12.0) sec INR (<1.2) Sodium (135-145) mmol/L BUN/Creatinine Ratio (12.00-20.00) Ratio Glucose (70-110) mg/dL POC Glucose (mg/dL) 130 H 135 H 143 H (75-99) mg/dL Calcium (8.7-10.3) mg/dL 01/26/21 01/26/21 01/26/21 Range/Units 06:03 06:03 11:59 PT 22.3 H (9.0-12.0) sec INR 2.3 H (<1.2) Sodium 131 L (135-145) mmol/L BUN/Creatinine Ratio 43.33 H (12.00-20.00) Ratio Glucose 124 H (70-110) mg/dL POC Glucose (mg/dL) 110 H (75-99) mg/dL Calcium 8.1 L (8.7-10.3) mg/dL
[2021-01-26 17:00] LABS: Glucose,Whole Blood 109 mg/dL (75-99)
[2021-01-26] MEDS ORDERED: WARFARIN 5 MG TAB PO ONE (18:00)
[2021-01-26] MEDS: ZOLPIDEM 5 MG TAB PO SCH (20:55)
[2021-01-26] MEDS ORDERED: HEPARIN SODIUM,PORCINE/PF 5,000 UNIT/0.5 ML SYRINGE SQ SCH (21:00)
[2021-01-26] MEDS: CYCLOBENZAPRINE 5 MG TAB PO PRN (21:39)
--- NOTE | 2021-01-26 23:40 | PN ---
PROGRESS NOTE DATE OF SERVICE: 01/26/2021 REASON FOR FOLLOWUP: Abdominal abscess, perforated diverticulitis. INTERVAL HISTORY: The patient is currently afebrile. Patient is breathing comfortably. The patient denies having any chest pain. No shortness of breath. No cough. Abdominal pain is currently controlled. No nausea, no vomiting. PHYSICAL EXAMINATION: Blood pressure 127/74 with a pulse of 69, temperature of 97.5. She is 97% on room air. General description is an elderly female lying in bed in no distress. Respiratory system: Unlabored breathing, clear to auscultation anteriorly. Heart S1, S2. Regular rate and rhythm. ABDOMEN: Soft, no tenderness. EXTREMITIES: No edema of the feet. LABS: BUN of 26, creatinine 0.6. DIAGNOSTIC IMPRESSION AND PLAN: Patient with abdominal abscess from perforated diverticulitis status post diverting colostomy in this patient abdominal culture has been positive for multiple pathogens. Patient is covered with cefepime, Flagyl and vancomycin to continue while monitoring clinical course closely. Continue supportive care. MMODL / IJN: [id number] /
[2021-01-26 23:48] LABS: Glucose,Whole Blood 130 mg/dL (75-99)
[2021-01-27] MEDS: ANIDULAFUNGIN 100 MG in SODIUM CHLORIDE 0.9% 100 ML IVPB SCH (00:45)
[2021-01-27] MEDS: CEFEPIME 2 GM in SODIUM CHLORIDE 0.9% 100 ML IVPB SCH ×2 (05:50→18:44)
[2021-01-27 06:15] LABS: Glucose,Whole Blood 125 mg/dL (75-99)
[2021-01-27] MEDS: VANCOMYCIN 1,250 MG in SODIUM CHLORIDE 0.9% 250 ML IVPB SCH ×2 (07:17→19:35)
[2021-01-27 07:53] LABS: INR 2.1 (<1.2); Prothrombin Time 20.6 sec (9.0-12.0)
[2021-01-27] MEDS: ACETAMINOPHEN TAB 325 MG TAB PO PRN (09:14)
[2021-01-27] MEDS: CARBIDOPA-LEVODOPA 25-100 MG 1 EACH TAB PO SCH ×4 (09:16→21:11)
[2021-01-27] MEDS: amLODIPine 10 MG TAB PO SCH (09:16)
[2021-01-27] MEDS: SODIUM CHLORIDE TAB 1 GM TAB PO SCH ×3 (09:17→21:11)
[2021-01-27] MEDS: METOPROLOL SUCCINATE (ER) 50 MG TAB.ER.24H PO SCH (09:17)
[2021-01-27] MEDS: LOSARTAN 50 MG TAB PO SCH (09:17)
[2021-01-27] MEDS: CITALOPRAM HYDROBROMIDE 10 MG TAB PO SCH (09:17)
[2021-01-27] MEDS: LEVOTHYROXINE 25 MCG TAB PO SCH (09:22)
[2021-01-27] MEDS: PANTOPRAZOLE 40 MG/10 ML VIAL IVP SCH (09:35)
[2021-01-27] MEDS: metroNIDAZOLE-NS PMX 500 MG in SALINE 1 100ML.BAG IVPB SCH ×3 (09:35→23:19)
--- NOTE | 2021-01-27 09:37 | P.PN ---
Subjective Patient is seen in follow-up for hyponatremia. Sodium level 131 as of yesterday. She is receiving TPN. Still not tolerating much oral intake. Good urine output. No chest pain or shortness of breath. Hemodynamically stable. No changes overnight. Vital signs are stable. General: The patient appeared well nourished and normally developed. HEENT: Head exam is unremarkable. Neck is without jugular venous distension. LUNGS: Breath sounds decreased. HEART: Rate and Rhythm are regular. ABDOMEN: Soft, nontender. EXTREMITITES: No edema. Objective - Vital Signs Vital signs: Vital Signs Temp 97.6 F 01/27/21 07:24 Pulse 87 01/27/21 07:28 Resp 18 01/27/21 07:28 BP 139/79 01/27/21 07:24 Pulse Ox 98 01/27/21 04:35 Intake & Output 01/26/21 01/27/21 01/27/21 18:59 06:59 18:59 Intake Total 720 1551.000 Output Total 2300 801 1 Balance -1580 750.000 -1 Intake: Intake, IV Titration 1351.000 Amount Anidulafungin 100 mg In 100 Sodium Chloride 0.9% 100 ml @ 84 mls/hr IVPB DAILY @0000 [facility] Rx#:[id number] Cefepime 2 gm In Sodium 100 Chloride 0.9% 100 ml @ 25 mls/hr IVPB Q12H [facility] Rx# :[id number] Mvi, Adult No.4 with Vit 1051.000 K 10 ml Trace (Conc-1Ml/ Dose) 1 ml Sodium Acetate 20 meq Sodium Chloride 4Meq/ml Vial 68 meq Magnesium Sulfate gm 1.5 gm Potassium Chloride 20 meq In Amino Acid 5%-D15w +Lytes*E* 1,000 ml @ 70 mls/hr IV .BY DURATION [facility] Rx#:[id number] metroNIDAZOLE-NS PMX 500 100 mg In Saline 1 100ml.bag @ 100 mls/hr IVPB Q8HR [facility] Rx#:[id number] Oral 720 200 Output: Urine 2300 800 Stool 1 1 Other: Voiding Method Diaper Diaper Incontinent Incontinent Incontinent External Catheter - Labs CBC & Chem 7: 01/25/21 05:55 01/26/21 06:03 Labs: Abnormal Lab Results - Last 24 Hours (Table) 0401/26/21 01/26/21 Range/Units 06:03 11:59 16:59 PT (9.0-12.0) sec INR (<1.2) Sodium 131 L (135-145) mmol/L BUN/Creatinine Ratio 43.33 H (12.00-20.00) Ratio Glucose 124 H (70-110) mg/dL POC Glucose (mg/dL) 110 H 109 H (75-99) mg/dL Calcium 8.1 L (8.7-10.3) mg/dL 01/26/21 01/27/21 01/27/21 Range/Units 23:47 06:14 06:27 PT 20.6 H (9.0-12.0) sec INR 2.1 H (<1.2) Sodium (135-145) mmol/L BUN/Creatinine Ratio (12.00-20.00) Ratio Glucose (70-110) mg/dL POC Glucose (mg/dL) 130 H 125 H (75-99) mg/dL Calcium (8.7-10.3) mg/dL Assessment and Plan Plan: Assessment: 1. Hyponatremia, euvolemic. Sodium level 131 as of yesterday. Receiving TPN. Also on sodium chloride tablets. On Celexa which can induce SIADH. Cortisol level normal. TSH normal. Urine osmolality 474 and urine sodium 126. 2. Diverticulitis and pelvic abscess status post exploratory laparotomy, sigmoid colectomy and colostomy. 3. Benign hypertension. Controlled. Plan: Maintain sodium chloride tabs. 1200 mL fluid restriction. Encouraged oral intake particularly protein. Morning labs pending.
[2021-01-27] MEDS: FAT EMULSION 20% 250 ML in EMPTY BAG 1 BAG IV SCH (09:55)
[2021-01-27 12:41] LABS: African American GFR (CKD) 99.1 (60.0-200.0); Albumin 2.8 g/dL (3.80-4.90); Albumin/Globulin Ratio 1.65 (1.60-3.17); Anion Gap 5.4 mmol/L (4.00-12.00); Calcium 8.4 mg/dL (8.7-10.3); Carbon Dioxide 27.6 mmol/L (21.6-31.8); Globulin 1.7 g/dL (1.6-3.3); Magnesium 2.1 mg/dL (1.5-2.4); Non-African American GFR(CKD) 85.5 (60.0-200.0); Phosphorus 2.9 mg/dL (2.4-5.1); Total Bilirubin 0.3 mg/dL (0.3-1.2); Total Protein 4.5 g/dL (6.2-8.2)
[2021-01-27 12:41] LABS: Glucose,Whole Blood 137 mg/dL (75-99)
--- NOTE | 2021-01-27 16:09 | P.PN ---
Progress Note - Text Progress Note Date: 01/27/21 The patient's resting comfortably in her bed. She has slightly less pain. She was she up her chair earlier today. On exam vital signs are stable. Abdomen soft. Incisions clean and intact colostomy has a small amount of function. Status post heart procedure for perforated diverticula is. Patient's low sodium is being addressed. She is progressing slowly.
[2021-01-27] MEDS ORDERED: WARFARIN 3 MG TAB PO ONE (18:00)
[2021-01-27 18:30] LABS: Glucose,Whole Blood 78 mg/dL (75-99)
--- NOTE | 2021-01-27 18:47 | PN ---
PROGRESS NOTE DATE OF SERVICE: 01/27/2021 REASON FOR FOLLOWUP: Abdominal abscess. INTERVAL HISTORY: The patient is currently afebrile. The patient is breathing comfortably. Denies having any chest pain, shortness of breath. Her abdominal pain is currently controlled. No diarrhea. PHYSICAL EXAMINATION: Blood pressure 127/72 with a pulse of 77, temperature 98. She is 96% on room air. General description is an elderly female lying in bed in no distress. RESPIRATORY SYSTEM: Unlabored breathing. Clear to auscultation anteriorly. HEART: S1, S2. Regular rate and rhythm. ABDOMEN: Soft. No tenderness. LABS: BUN of 21, creatinine 0.6. DIAGNOSTIC IMPRESSION AND PLAN: Patient with abdominal abscess from perforated diverticulitis, status post drainage of the abscess and diverting colostomy with abdominal cultures positive for coagulase- negative Staph, kym and Gram-positive bacilli. The patient did have allergies and is covered with Eraxis, cefepime and vancomycin. On current antibiotics for at least a week to finish course of therapy. Continue with supportive care. MMISHAANL / RAFAELN: [id number] / MTDD
[2021-01-27] MEDS: ZOLPIDEM 5 MG TAB PO SCH (21:11)
[2021-01-28 00:05] LABS: Glucose,Whole Blood 140 mg/dL (75-99)
[2021-01-28] MEDS: ANIDULAFUNGIN 100 MG in SODIUM CHLORIDE 0.9% 100 ML IVPB SCH (00:38)
[2021-01-28] MEDS: CEFEPIME 2 GM in SODIUM CHLORIDE 0.9% 100 ML IVPB SCH ×2 (05:48→18:32)
[2021-01-28 06:30] LABS: Glucose,Whole Blood 133 mg/dL (75-99)
[2021-01-28] MEDS: CARBIDOPA-LEVODOPA 25-100 MG 1 EACH TAB PO SCH ×4 (07:23→21:02)
[2021-01-28] MEDS: LEVOTHYROXINE 25 MCG TAB PO SCH (07:23)
[2021-01-28] MEDS: VANCOMYCIN 1,250 MG in SODIUM CHLORIDE 0.9% 250 ML IVPB SCH ×2 (07:23→19:45)
[2021-01-28 08:22] LABS: INR 2.6 (<1.2); Prothrombin Time 25.3 sec (9.0-12.0)
[2021-01-28] MEDS: PANTOPRAZOLE 40 MG/10 ML VIAL IVP SCH (09:58)
[2021-01-28] MEDS: metroNIDAZOLE-NS PMX 500 MG in SALINE 1 100ML.BAG IVPB SCH ×3 (09:58→23:36)
[2021-01-28] MEDS: CITALOPRAM HYDROBROMIDE 10 MG TAB PO SCH (09:59)
[2021-01-28] MEDS: METOPROLOL SUCCINATE (ER) 50 MG TAB.ER.24H PO SCH (09:59)
[2021-01-28] MEDS: LOSARTAN 50 MG TAB PO SCH (09:59)
[2021-01-28] MEDS: SODIUM CHLORIDE TAB 1 GM TAB PO SCH ×3 (10:00→21:01)
[2021-01-28] MEDS: amLODIPine 10 MG TAB PO SCH (10:01)
[2021-01-28 11:40] LABS: African American GFR (CKD) 105.2 (60.0-200.0); Anion Gap 2.4 mmol/L (4.00-12.00); Calcium 8.1 mg/dL (8.7-10.3); Carbon Dioxide 28.6 mmol/L (21.6-31.8); Magnesium 2.1 mg/dL (1.5-2.4); Non-African American GFR(CKD) 90.8 (60.0-200.0); Phosphorus 3.1 mg/dL (2.4-5.1); Potassium 4.1 mmol/L (3.5-5.5)
[2021-01-28 12:21] LABS: Glucose,Whole Blood 129 mg/dL (75-99)
--- NOTE | 2021-01-28 14:19 | P.PN ---
Progress Note - Text Progress Note Date: 01/28/21 Patient feels better. Her incisional pain is improved. She's had some up with his stoma. Her appetite is improved. On exam vital signs are stable. Abdomen soft. Incisions clean and intact. Status post Rafa procedure for perforated diverticula is. Patient's sodium is slowly increase to 131. She'll continue to have supportive care.
--- NOTE | 2021-01-28 17:11 | P.PN ---
Subjective Progress Note Date: 01/28/21 Follow-up for hyponatremia. Objective - Vital Signs Vital signs: Vital Signs Temp 97.4 F L 01/28/21 12:10 Pulse 77 01/28/21 12:10 Resp 17 01/28/21 12:10 BP 134/74 01/28/21 12:10 Pulse Ox 94 L 01/28/21 12:10 Intake & Output 01/27/21 01/28/21 01/28/21 18:59 06:59 18:59 Intake Total 1835 Output Total 951 1600 501 Balance 884 -1600 -501 Weight 72.575 kg Intake: Intake, IV Titration 1035 Amount Sodium Acetate 20 meq 1035 Sodium Chloride 4Meq/ml Vial 48 meq Potassium Chloride 20 meq Magnesium Sulfate gm 1.5 gm In Amino Acid 5%-D15w+Lytes* E* 1,000 ml @ 70 mls/hr IV .BY DURATION [facility] Rx#: [id number] Oral 800 Output: Urine 950 1600 500 Stool 1 1 Other: Voiding Method Incontinent Incontinent Incontinent - Exam Exam limited Secondary to Covid 19 pandemic. - Labs CBC & Chem 7: 01/25/21 05:55 01/28/21 06:59 Labs: Abnormal Lab Results - Last 24 Hours (Table) 01/28/21 01/28/21 01/28/21 Range/Units 00:00 06:28 06:59 PT (9.0-12.0) sec INR (<1.2) Sodium 133 L (135-145) mmol/L Anion Gap 2.40 L (4.00-12.00) mmol/L Creatinine 0.5 L (0.6-1.5) mg/dL BUN/Creatinine Ratio 36.00 H (12.00-20.00) Ratio Glucose 146 H (70-110) mg/dL POC Glucose (mg/dL) 140 H 133 H (75-99) mg/dL Calcium 8.1 L (8.7-10.3) mg/dL 01/28/21 01/28/21 Range/Units 06:59 12:19 PT 25.3 H (9.0-12.0) sec INR 2.6 H (<1.2) Sodium (135-145) mmol/L Anion Gap (4.00-12.00) mmol/L Creatinine (0.6-1.5) mg/dL BUN/Creatinine Ratio (12.00-20.00) Ratio Glucose (70-110) mg/dL POC Glucose (mg/dL) 129 H (75-99) mg/dL Calcium (8.7-10.3) mg/dL Assessment and Plan Assessment: #1 euvolemic hyponatremia secondary to SIADH. #2 diverticulitis with pelvic abscess status post exploratory laparotomy and sigmoid colectomy with colostomy. #3 hypertension essential Plan: #1 sodium improving. Continue with fluid restriction of 1200 ML's per day. #2 high-protein diet #3 supportive care
[2021-01-28 17:17] LABS: Glucose,Whole Blood 128 mg/dL (75-99)
[2021-01-28] MEDS: ACETAMINOPHEN TAB 325 MG TAB PO PRN (17:17)
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
[2021-01-28] MEDS ORDERED: WARFARIN 5 MG TAB PO ONE (18:00)
[2021-01-28] MEDS: ZOLPIDEM 5 MG TAB PO SCH (20:57)
--- NOTE | 2021-01-28 21:36 | PN ---
PROGRESS NOTE DATE OF SERVICE: 01/28/2021 REASON FOR FOLLOWUP: Abdominal abscess from perforated diverticulitis. INTERVAL HISTORY: Patient is currently afebrile. The patient is breathing comfortably. Patient denies having any chest pain. No shortness of breath or cough. Denies any abdominal pain or diarrhea. PHYSICAL EXAMINATION: Blood pressure 134/74, pulse of 77, temperature 97.4. She is 94 percent on room air. The patient is an elderly female up in the bed in no distress. Respiratory system: Unlabored breathing, clear to auscultation anteriorly. Heart S1, S2. Regular rate and rhythm. Abdomen soft. No tenderness. LABS: BUN of 18, creatinine 0.5. DIAGNOSTIC IMPRESSION AND PLAN: Patient with an abdominal abscess, status post laparotomy and drainage of abscess and diverting colostomy. The patient is currently on cefepime, Eraxis, Flagyl and vancomycin because of multiple pathogen. However the patient received about 7-10 days of antibiotic, that should be more than enough and we will monitor clinical course closely. MMODL / IJN: [id number] /
[2021-01-29 00:32] LABS: Glucose,Whole Blood 140 mg/dL (75-99)
[2021-01-29] MEDS: ANIDULAFUNGIN 100 MG in SODIUM CHLORIDE 0.9% 100 ML IVPB SCH (00:48)
[2021-01-29] MEDS: CEFEPIME 2 GM in SODIUM CHLORIDE 0.9% 100 ML IVPB SCH ×2 (05:48→17:56)
[2021-01-29] MEDS ORDERED: VANCOMYCIN TROUGH DUE 1 EACH MISC MISCELLANE ONE (06:00)
[2021-01-29 06:07] LABS: Glucose,Whole Blood 130 mg/dL (75-99)
[2021-01-29 06:13] LABS: African American GFR (CKD) >90 (>60 ml/min/1.73 sqM); Anion Gap 1 mmol/L; Blood Urea Nitrogen 23 mg/dL (7-17); Calcium 8.2 mg/dL (8.4-10.2); Carbon Dioxide 29 mmol/L (22-30); Chloride 100 mmol/L (98-107); Glucose 123 mg/dL (74-99); Non-African American GFR(CKD) >90 (>60 ml/min/1.73 sqM); Phosphorus 3.2 mg/dL (2.5-4.5); Potassium 4.1 mmol/L (3.5-5.1); Sodium 130 mmol/L (137-145)
[2021-01-29 06:15] LABS: INR 3.4 (<1.2); Prothrombin Time 32.6 sec (9.0-12.0)
[2021-01-29] MEDS: VANCOMYCIN 1,250 MG in SODIUM CHLORIDE 0.9% 250 ML IVPB SCH ×2 (06:58→19:16)
[2021-01-29] MEDS: CARBIDOPA-LEVODOPA 25-100 MG 1 EACH TAB PO SCH ×4 (07:31→23:24)
[2021-01-29] MEDS: LEVOTHYROXINE 25 MCG TAB PO SCH (07:31)
[2021-01-29] MEDS: METOPROLOL SUCCINATE (ER) 50 MG TAB.ER.24H PO SCH (09:13)
[2021-01-29] MEDS: amLODIPine 10 MG TAB PO SCH (09:13)
[2021-01-29] MEDS: LOSARTAN 50 MG TAB PO SCH (09:13)
[2021-01-29] MEDS: CITALOPRAM HYDROBROMIDE 10 MG TAB PO SCH (09:14)
[2021-01-29] MEDS: PANTOPRAZOLE 40 MG/10 ML VIAL IVP SCH (09:14)
[2021-01-29] MEDS: SODIUM CHLORIDE TAB 1 GM TAB PO SCH ×3 (09:15→21:15)
--- NOTE | 2021-01-29 09:54 | P.PN ---
Progress Note - Text Progress Note Date: 01/29/21 Patient feels slightly better. She has some complaints of back pain. On exam vital signs are stable. Abdomen soft. Incisions clean and intact. Colostomy dysfunction. Patient status post Rafa procedure for perforated diverticular lysed. She'll continue receive supportive care.
[2021-01-29] MEDS: metroNIDAZOLE-NS PMX 500 MG in SALINE 1 100ML.BAG IVPB SCH ×3 (10:25→23:24)
[2021-01-29 11:09] LABS: Basophils % (A) 0 %; Eosinophils # (A) 0.3 k/uL (0-0.7); Eosinophils % (A) 5 %; HCT 32.7 % (34.0-46.0); HGB 11.1 gm/dL (11.4-16.0); Lymphocytes # (A) 0.4 k/uL (1.0-4.8); Lymphocytes % (A) 8 %; MCV 97.1 fL (80.0-100.0); Mean Platelet Volume 8.2; Monocytes # (A) 0.4 k/uL (0-1.0); Monocytes % (A) 7 %; Neutrophils # (A) 4.1 k/uL (1.3-7.7); Neutrophils % (A) 78 %; RBC 3.37 m/uL (3.80-5.40); RDW 15.3 % (11.5-15.5); WBC 5.2 k/uL (3.8-10.6)
[2021-01-29 11:27] LABS: Platelet Count 2 k/uL (150-450)
[2021-01-29 11:51] LABS: Glucose,Whole Blood 129 mg/dL (75-99)
[2021-01-29 12:49] LABS: Anisocytosis Slight; Basophils % (A) 0 %; Eosinophils # (A) 0.2 k/uL (0-0.7); Eosinophils % (A) 4 %; HCT 33.2 % (34.0-46.0); HGB 10.7 gm/dL (11.4-16.0); Lymphocytes # (A) 0.6 k/uL (1.0-4.8); Lymphocytes % (A) 10 %; MCH 31.5 pg (25.0-35.0); MCHC 32.2 g/dL (31.0-37.0); Macrocytosis Slight; Mean Platelet Volume 6.7; Monocytes # (A) 0.4 k/uL (0-1.0); Monocytes % (A) 6 %; Neutrophils # (A) 4.7 k/uL (1.3-7.7); Neutrophils % (A) 77 %; RBC 3.39 m/uL (3.80-5.40); WBC 6.1 k/uL (3.8-10.6)
[2021-01-29 13:00] LABS: ALT 6 U/L (4-34); AST 30 U/L (14-36); African American GFR (CKD) >90 (>60 ml/min/1.73 sqM); Albumin 2.3 g/dL (3.5-5.0); Alkaline Phosphatase 73 U/L (38-126); Anion Gap 2 mmol/L; Blood Urea Nitrogen 22 mg/dL (7-17); Calcium 8.3 mg/dL (8.4-10.2); Carbon Dioxide 26 mmol/L (22-30); Chloride 102 mmol/L (98-107); Globulin 2.4 g/dL; Glucose 119 mg/dL (74-99); Non-African American GFR(CKD) >90 (>60 ml/min/1.73 sqM); Potassium 4.1 mmol/L (3.5-5.1); Sodium 130 mmol/L (137-145); Total Bilirubin 0.4 mg/dL (0.2-1.3); Total Protein 4.7 g/dL (6.3-8.2)
[2021-01-29 13:01] LABS: INR 3.2 (<1.2); Partial Thromboplastin Time 30.3 sec (22.0-30.0); Prothrombin Time 30.7 sec (9.0-12.0)
[2021-01-29 13:03] LABS: Platelet Count 3 k/uL (150-450)
--- NOTE | 2021-01-29 14:07 | P.PN ---
Subjective Progress Note Date: 01/29/21 Follow-up for hyponatremia. Objective - Vital Signs Vital signs: Vital Signs Temp 98 F 01/29/21 12:03 Pulse 77 01/29/21 12:03 Resp 17 01/29/21 12:03 BP 130/72 01/29/21 12:03 Pulse Ox 97 01/29/21 12:03 Intake & Output 01/28/21 01/29/21 01/29/21 18:59 06:59 18:59 Intake Total 1051 1335 Output Total 501 1500 1 Balance 550 -165 -1 Intake: Intake, IV Titration 1051 1035 Amount Mvi, Adult No.4 with Vit 1051 K 10 ml Trace (Conc-1Ml/ Dose) 1 ml Sodium Acetate 20 meq Sodium Chloride 4Meq/ml Vial 68 meq Magnesium Sulfate gm 1.5 gm Potassium Chloride 20 meq In Amino Acid 5%-D15w +Lytes*E* 1,000 ml @ 70 mls/hr IV .BY DURATION [facility] Rx#:[id number] Sodium Acetate 20 meq 1035 Sodium Chloride 4Meq/ml Vial 48 meq Potassium Chloride 20 meq Magnesium Sulfate gm 1.5 gm In Amino Acid 5%-D15w+Lytes* E* 1,000 ml @ 70 mls/hr IV .BY DURATION [facility] Rx#: [id number] Oral 300 Output: Urine 500 1500 Stool 1 1 Other: Voiding Method Incontinent Incontinent Incontinent - Exam Exam limited Secondary to Covid 19 pandemic. - Labs CBC & Chem 7: 01/29/21 12:32 01/29/21 12:32 Labs: Abnormal Lab Results - Last 24 Hours (Table) 01/28/21 01/29/21 01/29/21 Range/Units 17:15 00:19 05:28 RBC (3.80-5.40) m/uL Hgb (11.4-16.0) gm/dL Hct (34.0-46.0) % RDW (11.5-15.5) % Plt Count (150-450) k/uL Lymphocytes # (1.0-4.8) k/uL PT 32.6 H (9.0-12.0) sec INR 3.4 H (<1.2) APTT (22.0-30.0) sec Fibrinogen (200-500) mg/dL Sodium (137-145) mmol/L BUN (7-17) mg/dL Creatinine (0.52-1.04) mg/dL Glucose (74-99) mg/dL POC Glucose (mg/dL) 128 H 140 H (75-99) mg/dL Calcium (8.4-10.2) mg/dL Total Protein (6.3-8.2) g/dL Albumin (3.5-5.0) g/dL 01/29/21 01/29/21 01/29/21 Range/Units 05:28 06:04 10:29 RBC 3.37 L (3.80-5.40) m/uL Hgb 11.1 L (11.4-16.0) gm/dL Hct 32.7 L (34.0-46.0) % RDW (11.5-15.5) % Plt Count 2 L* D (150-450) k/uL Lymphocytes # 0.4 L (1.0-4.8) k/uL PT (9.0-12.0) sec INR (<1.2) APTT (22.0-30.0) sec Fibrinogen (200-500) mg/dL Sodium 130 L (137-145) mmol/L BUN 23 H (7-17) mg/dL Creatinine 0.49 L (0.52-1.04) mg/dL Glucose 123 H (74-99) mg/dL POC Glucose (mg/dL) 130 H (75-99) mg/dL Calcium 8.2 L (8.4-10.2) mg/dL Total Protein (6.3-8.2) g/dL Albumin (3.5-5.0) g/dL 01/29/21 01/29/21 01/29/21 Range/Units 11:50 12:32 12:32 RBC 3.39 L (3.80-5.40) m/uL Hgb 10.7 L (11.4-16.0) gm/dL Hct 33.2 L (34.0-46.0) % RDW 16.0 H (11.5-15.5) % Plt Count 3 L* (150-450) k/uL Lymphocytes # 0.6 L (1.0-4.8) k/uL PT 30.7 H (9.0-12.0) sec INR 3.2 H (<1.2) APTT 30.3 H (22.0-30.0) sec Fibrinogen 536 H (200-500) mg/dL Sodium (137-145) mmol/L BUN (7-17) mg/dL Creatinine (0.52-1.04) mg/dL Glucose (74-99) mg/dL POC Glucose (mg/dL) 129 H (75-99) mg/dL Calcium (8.4-10.2) mg/dL Total Protein (6.3-8.2) g/dL Albumin (3.5-5.0) g/dL 01/29/21 Range/Units 12:32 RBC (3.80-5.40) m/uL Hgb (11.4-16.0) gm/dL Hct (34.0-46.0) % RDW (11.5-15.5) % Plt Count (150-450) k/uL Lymphocytes # (1.0-4.8) k/uL PT (9.0-12.0) sec INR (<1.2) APTT (22.0-30.0) sec Fibrinogen (200-500) mg/dL Sodium 130 L (137-145) mmol/L BUN 22 H (7-17) mg/dL Creatinine 0.47 L (0.52-1.04) mg/dL Glucose 119 H (74-99) mg/dL POC Glucose (mg/dL) (75-99) mg/dL Calcium 8.3 L (8.4-10.2) mg/dL Total Protein 4.7 L (6.3-8.2) g/dL Albumin 2.3 L (3.5-5.0) g/dL Assessment and Plan Assessment: #1 euvolemic hyponatremia secondary to SIADH. #2 diverticulitis with pelvic abscess status post exploratory laparotomy and sigmoid colectomy with colostomy. #3 hypertension essential Plan: #1 sodium stable, she does not like salt tablets. Continue with fluid restriction of 1200 ML's per day. #2 high-protein diet #3 give Samsca 7.5 mg once today.
[2021-01-29] MEDS ORDERED: TOLVAPTAN 15 MG 1/2 TABLET PO ONE (16:00)
[2021-01-29 17:30] LABS: Glucose,Whole Blood 119 mg/dL (75-99)
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
[2021-01-29] MEDS ORDERED: WARFARIN 0.5 MG TAB PO ONE (18:00)
[2021-01-29 19:04] LABS: Basophils % (A) 0 %; Eosinophils # (A) 0.2 k/uL (0-0.7); Eosinophils % (A) 4 %; HCT 31.6 % (34.0-46.0); HGB 10.7 gm/dL (11.4-16.0); Lymphocytes # (A) 0.7 k/uL (1.0-4.8); Lymphocytes % (A) 12 %; MCH 32.7 pg (25.0-35.0); MCHC 33.9 g/dL (31.0-37.0); MCV 96.5 fL (80.0-100.0); Mean Platelet Volume 6.5; Monocytes # (A) 0.4 k/uL (0-1.0); Monocytes % (A) 7 %; Neutrophils # (A) 4.4 k/uL (1.3-7.7); Neutrophils % (A) 75 %; RBC 3.28 m/uL (3.80-5.40); RDW 15.4 % (11.5-15.5); WBC 5.9 k/uL (3.8-10.6)
[2021-01-29 19:11] LABS: Platelet Count 3 k/uL (150-450)
--- NOTE | 2021-01-29 19:58 | PN ---
PROGRESS NOTE DATE OF SERVICE: 01/29/2021 REASON FOR FOLLOWUP: Abdominal abscess and perforated diverticulitis. INTERVAL HISTORY: The patient is currently afebrile. Patient is breathing comfortably. The patient denies any chest pain. No shortness of breath or cough. No abdominal pain or diarrhea. PHYSICAL EXAMINATION: Blood pressure 138/72 with a pulse of 79, temperature 98. She is 97% on room air. General description is an elderly female lying in bed in no distress. Respiratory system: Unlabored breathing, decreased intensity in the breath sounds. No wheeze. Heart S1, S2. Regular rate and rhythm. Abdomen soft, no tenderness. LABS: Hemoglobin is 10.4, white count 6.1. BUN of 22, creatinine 0.47. DIAGNOSTIC IMPRESSION AND PLAN: Patient with abdominal abscess, perforated diverticulitis in this patient abdominal culture has been positive for Genia. Coagulase negative Staph, gram-negative bacilli with significant thrombocytopenia, could be related to cefepime or Eraxis. The patient has received about 9 days of these antibiotics that should be more than enough. We will discontinue these antibiotics and we will monitor the patient closely. Unfortunately cannot use the Diflucan because of Celexa the patient already on and the patient has multiple antibiotic allergies. We will replace cefepime with oral Ceftin and continue supportive care. MMODL / IJN: [id number] /
[2021-01-29] MEDS: ZOLPIDEM 5 MG TAB PO SCH (21:13)
[2021-01-29] MEDS: CEFDINIR 300 MG CAP PO SCH (21:13)
[2021-01-30 00:40] LABS: Glucose,Whole Blood 128 mg/dL (75-99)
[2021-01-30 01:03] LABS: Basophils % (A) 1 %; Eosinophils # (A) 0.3 k/uL (0-0.7); Eosinophils % (A) 5 %; HCT 33.3 % (34.0-46.0); HGB 11.3 gm/dL (11.4-16.0); Lymphocytes # (A) 0.7 k/uL (1.0-4.8); Lymphocytes % (A) 11 %; MCH 33.1 pg (25.0-35.0); MCV 97.2 fL (80.0-100.0); Mean Platelet Volume 8.2; Monocytes # (A) 0.6 k/uL (0-1.0); Monocytes % (A) 9 %; Neutrophils # (A) 4.8 k/uL (1.3-7.7); Neutrophils % (A) 74 %; RBC 3.42 m/uL (3.80-5.40); RDW 15.5 % (11.5-15.5); WBC 6.4 k/uL (3.8-10.6)
[2021-01-30 01:27] LABS: Platelet Count 4 k/uL (150-450)
[2021-01-30] MEDS: CYCLOBENZAPRINE 5 MG TAB PO PRN (04:32)
[2021-01-30 06:24] LABS: Glucose,Whole Blood 121 mg/dL (75-99)
[2021-01-30 06:56] LABS: Basophils % (A) 0 %; Eosinophils # (A) 0.2 k/uL (0-0.7); Eosinophils % (A) 4 %; HCT 31.9 % (34.0-46.0); HGB 10.4 gm/dL (11.4-16.0); Lymphocytes # (A) 0.5 k/uL (1.0-4.8); Lymphocytes % (A) 8 %; MCH 31.8 pg (25.0-35.0); MCHC 32.7 g/dL (31.0-37.0); MCV 97.2 fL (80.0-100.0); Mean Platelet Volume 6.1; Monocytes # (A) 0.5 k/uL (0-1.0); Monocytes % (A) 7 %; Neutrophils # (A) 5.2 k/uL (1.3-7.7); Neutrophils % (A) 80 %; RBC 3.28 m/uL (3.80-5.40); RDW 15.6 % (11.5-15.5); WBC 6.6 k/uL (3.8-10.6)
[2021-01-30 07:06] LABS: Platelet Count 5 k/uL (150-450)
[2021-01-30 07:12] LABS: Prothrombin Time 28.5 sec (9.0-12.0)
[2021-01-30] MEDS: FAT EMULSION 20% 250 ML in EMPTY BAG 1 BAG IV SCH (07:20)
[2021-01-30] MEDS: metroNIDAZOLE-NS PMX 500 MG in SALINE 1 100ML.BAG IVPB SCH ×3 (07:21→23:55)
[2021-01-30 07:35] LABS: African American GFR (CKD) >90 (>60 ml/min/1.73 sqM); Anion Gap 2 mmol/L; Blood Urea Nitrogen 20 mg/dL (7-17); Calcium 8.5 mg/dL (8.4-10.2); Carbon Dioxide 30 mmol/L (22-30); Chloride 102 mmol/L (98-107); Glucose 128 mg/dL (74-99); Magnesium 2.1 mg/dL (1.6-2.3); Non-African American GFR(CKD) >90 (>60 ml/min/1.73 sqM); Phosphorus 3.6 mg/dL (2.5-4.5); Potassium 3.9 mmol/L (3.5-5.1); Sodium 134 mmol/L (137-145)
[2021-01-30] MEDS: VANCOMYCIN 1,250 MG in SODIUM CHLORIDE 0.9% 250 ML IVPB SCH (08:55)
[2021-01-30] MEDS: SODIUM CHLORIDE TAB 1 GM TAB PO SCH ×3 (08:56→22:51)
[2021-01-30] MEDS: METOPROLOL SUCCINATE (ER) 50 MG TAB.ER.24H PO SCH (08:56)
[2021-01-30] MEDS: amLODIPine 10 MG TAB PO SCH (08:56)
[2021-01-30] MEDS: LOSARTAN 50 MG TAB PO SCH (08:56)
[2021-01-30] MEDS: CARBIDOPA-LEVODOPA 25-100 MG 1 EACH TAB PO SCH ×4 (08:56→22:51)
[2021-01-30] MEDS: CITALOPRAM HYDROBROMIDE 10 MG TAB PO SCH (08:56)
[2021-01-30] MEDS: LEVOTHYROXINE 25 MCG TAB PO SCH (08:56)
[2021-01-30] MEDS: CEFDINIR 300 MG CAP PO SCH ×2 (08:57→20:17)
[2021-01-30] MEDS: PANTOPRAZOLE 40 MG/10 ML VIAL IVP SCH (08:57)
[2021-01-30] MEDS ORDERED: PHYTONADIONE 5 MG in SODIUM CHLORIDE 0.9% 50 ML IVPB STA (09:46)
--- NOTE | 2021-01-30 11:06 | P.PN ---
Progress Note - Text Progress Note Date: 01/30/21 Patient feels better. On exam vital signs are stable. Abdomen soft. Colostomy has stool within it. Status post sigmoid clipped the end colostomy for perforated diverticulitis with abscess. Patient is progressing slowly. Her sodium is slowly improving. She will continue have supportive care.
[2021-01-30] MEDS: methylPREDNISolone SOD SUCCI 125 MG/2 ML VIAL IV SCH ×3 (11:07→23:55)
[2021-01-30 11:13] LABS: Glucose,Whole Blood 115 mg/dL (75-99)
[2021-01-30] MEDS ORDERED: IMMUNE GLOBULIN (GAMMAGARD) 30 GM in EMPTY BAG 1 BAG IV ONE (12:00)
--- NOTE | 2021-01-30 14:59 | P.PN ---
Subjective Progress Note Date: 01/30/21 Principal diagnosis: thrombocytopenia In f/u today pt is rather lethargic, answers questions slowly, not really engaged. She is tired. Objective - Vital Signs Vital signs: Vital Signs Temp 98.9 F 01/30/21 04:43 Pulse 80 01/30/21 04:43 Resp 20 01/30/21 04:43 BP 145/75 01/30/21 04:43 Pulse Ox 96 01/30/21 04:43 Intake & Output 01/29/21 01/30/21 01/30/21 18:59 06:59 18:59 Intake Total 756 329 Output Total 1701 1 Balance -945 329 -1 Intake: Oral 756 Blood Product 329 Platelet Pheresis Pas 329 Psoralen Unit [id number] Output: Urine 1700 Stool 1 1 Other: Voiding Method Incontinent Incontinent Incontinent # Voids 1 - Constitutional General appearance: Present: disheveled, no acute distress, obese - EENT Eyes: Present: anicteric sclerae, edentulous ENT: Present: hearing grossly normal, normal oropharynx - Respiratory Respiratory: bilateral: CTA - Cardiovascular Rhythm: regular Heart sounds: normal: S1, S2 Abnormal Heart Sounds: Absent: systolic murmur, diastolic murmur, rub, S3 Gallop, S4 Gallop, click, other - Peripheral edema leg Peripheral Edema: bilateral: Trace - Gastrointestinal General gastrointestinal: Present: normal bowel sounds, soft - Integumentary Integumentary Comment(s): minor bruising, epistaxis-mild, clots, dressing over lower abd incision has bloody drainage-per RN only slightly increased from last dressing change yesterday. No petechiae - Neurologic Neurologic: Present: CNII-XII intact - Musculoskeletal Musculoskeletal: Present: generalized weakness - Psychiatric Psychiatric Comment(s): Pt slow to respond - Labs CBC & Chem 7: 01/30/21 06:03 01/30/21 06:03 Labs: Abnormal Lab Results - Last 24 Hours (Table) 01/29/21 01/29/21 01/29/21 Range/Units 10:29 11:50 12:32 RBC 3.37 L 3.39 L (3.80-5.40) m/uL Hgb 11.1 L 10.7 L (11.4-16.0) gm/dL Hct 32.7 L 33.2 L (34.0-46.0) % RDW 16.0 H (11.5-15.5) % Plt Count 2 L* D 3 L* (150-450) k/uL Lymphocytes # 0.4 L 0.6 L (1.0-4.8) k/uL PT (9.0-12.0) sec INR (<1.2) APTT (22.0-30.0) sec Fibrinogen (200-500) mg/dL Sodium (137-145) mmol/L BUN (7-17) mg/dL Creatinine (0.52-1.04) mg/dL Glucose (74-99) mg/dL POC Glucose (mg/dL) 129 H (75-99) mg/dL Calcium (8.4-10.2) mg/dL Total Protein (6.3-8.2) g/dL Albumin (3.5-5.0) g/dL 01/29/21 01/29/21 01/29/21 Range/Units 12:32 12:32 17:28 RBC (3.80-5.40) m/uL Hgb (11.4-16.0) gm/dL Hct (34.0-46.0) % RDW (11.5-15.5) % Plt Count (150-450) k/uL Lymphocytes # (1.0-4.8) k/uL PT 30.7 H (9.0-12.0) sec INR 3.2 H (<1.2) APTT 30.3 H (22.0-30.0) sec Fibrinogen 536 H (200-500) mg/dL Sodium 130 L (137-145) mmol/L BUN 22 H (7-17) mg/dL Creatinine 0.47 L (0.52-1.04) mg/dL Glucose 119 H (74-99) mg/dL POC Glucose (mg/dL) 119 H (75-99) mg/dL Calcium 8.3 L (8.4-10.2) mg/dL Total Protein 4.7 L (6.3-8.2) g/dL Albumin 2.3 L (3.5-5.0) g/dL 01/29/21 01/30/21 01/30/21 Range/Units 18:38 00:23 00:36 RBC 3.28 L 3.42 L (3.80-5.40) m/uL Hgb 10.7 L 11.3 L (11.4-16.0) gm/dL Hct 31.6 L 33.3 L (34.0-46.0) % RDW (11.5-15.5) % Plt Count 3 L* 4 L* (150-450) k/uL Lymphocytes # 0.7 L 0.7 L (1.0-4.8) k/uL PT (9.0-12.0) sec INR (<1.2) APTT (22.0-30.0) sec Fibrinogen (200-500) mg/dL Sodium (137-145) mmol/L BUN (7-17) mg/dL Creatinine (0.52-1.04) mg/dL Glucose (74-99) mg/dL POC Glucose (mg/dL) 128 H (75-99) mg/dL Calcium (8.4-10.2) mg/dL Total Protein (6.3-8.2) g/dL Albumin (3.5-5.0) g/dL 01/30/21 01/30/21 01/30/21 Range/Units 06:03 06:03 06:03 RBC 3.28 L (3.80-5.40) m/uL Hgb 10.4 L (11.4-16.0) gm/dL Hct 31.9 L (34.0-46.0) % RDW 15.6 H (11.5-15.5) % Plt Count 5 L* (150-450) k/uL Lymphocytes # 0.5 L (1.0-4.8) k/uL PT 28.5 H (9.0-12.0) sec INR 3.0 H (<1.2) APTT (22.0-30.0) sec Fibrinogen (200-500) mg/dL Sodium 134 L (137-145) mmol/L BUN 20 H (7-17) mg/dL Creatinine 0.49 L (0.52-1.04) mg/dL Glucose 128 H (74-99) mg/dL POC Glucose (mg/dL) (75-99) mg/dL Calcium (8.4-10.2) mg/dL Total Protein (6.3-8.2) g/dL Albumin (3.5-5.0) g/dL 01/30/ Range/Units 06:22 RBC (3.80-5.40) m/uL Hgb (11.4-16.0) gm/dL Hct (34.0-46.0) % RDW (11.5-15.5) % Plt Count (150-450) k/uL Lymphocytes # (1.0-4.8) k/uL PT (9.0-12.0) sec INR (<1.2) APTT (22.0-30.0) sec Fibrinogen (200-500) mg/dL Sodium (137-145) mmol/L BUN (7-17) mg/dL Creatinine (0.52-1.04) mg/dL Glucose (74-99) mg/dL POC Glucose (mg/dL) 121 H (75-99) mg/dL Calcium (8.4-10.2) mg/dL Total Protein (6.3-8.2) g/dL Albumin (3.5-5.0) g/dL Assessment and Plan (1) Thrombocytopenia Narrative/Plan: Plt did not respond to transfusion. Dr. Goode discussed the case with Dr. Olmos. Pt condition likely multifactorial. 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 Vancomycin can e xacerbate thrombocytopenia and cause it to be persistent despite transfusion as well. Plan is to change vancomycin, administer solumedrol 60mg Q 8 and give platelets (after steroids given). Will discuss case with Pharmacy to get a dose of IVIG-case discussed with them, IVIG ordered. Will try to DC steroids as soon as possible. Current Visit: Yes Status: Acute Priority: High Code(s): D69.6 - THROMBOCYTOPENIA, UNSPECIFIED SNOMED Code(s): 596208613 (2) Medication induced coagulopathy Narrative/Plan: Hold coumadin Vit K ordered to reverse INR in light of severe thrombocytopenia Current Visit: Yes Status: Acute Priority: High Code(s): D68.9 - COAGULATION DEFECT, UNSPECIFIED; T50.905A - ADVERSE EFFECT OF UNSP DRUG/MEDS/BIOL SUBST, INIT SNOMED Code(s): 086799795 Plan: CBC daily Doctor attests: I performed a history and physical examination of this patient, developed impression and plan of care. Discussed with dictator. I agree with dictators note, documented as a scribe.
--- NOTE | 2021-01-30 15:38 | PN ---
PROGRESS NOTE Patient is seen for followup for hyponatremia. The patient's serum sodium level has been staying within range at about 134 mEq/L. She denies any significant complaints today. She is trying to increase her oral intake. PHYSICAL EXAMINATION: Blood pressure was 146/74, heart rate 79 per minute. She is afebrile. EXAMINATION OF THE HEART: S1, S2. EXAMINATION OF LUNGS: Decreased breath sounds at bases. Abdomen is soft, nontender. Examination of lower extremities shows no significant edema. ORTHOTICS PROSTHETICS TECHNICIAN exam grossly intact. LABS: Labs show hemoglobin 10.4 today, white cell count was 6.6, platelet count only 5000. Sodium 134, potassium 3.9, BUN 20, creatinine 0.49. ASSESSMENT: 1. Hyponatremia euvolemic associated with SIADH currently stable, trying to increase oral protein intake, status post Samsca yesterday. 2. Diverticulitis with pelvic abscess, status post explorative laparotomy and sigmoid colectomy with colostomy. 3. Hypertension controlled. PLAN: Continue to encourage increased oral protein intake. Repeat labs over the next 2-3 days. MMODL / IJN: [id number] /
[2021-01-30 17:31] LABS: Glucose,Whole Blood 177 mg/dL (75-99)
[2021-01-30] MEDS: ZOLPIDEM 5 MG TAB PO SCH (20:17)
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
--- NOTE | 2021-01-31 00:49 | PN ---
PROGRESS NOTE DATE OF SERVICE: 01/30/2021 REASON FOR FOLLOWUP: Abdominal abscess from ruptured diverticulitis. INTERVAL HISTORY: Patient is currently afebrile. The patient is breathing comfortably. The patient denies having any chest pain, shortness of breath and no cough. No abdominal pain or diarrhea. PHYSICAL EXAMINATION: Blood pressure is 142/83 with a pulse of 90, temperature 97.9. She is 92% on room air. GENERAL description is an elderly female lying in bed in no distress. RESPIRATORY system: Unlabored breathing, clear to auscultation anteriorly. HEART S1, S2. Regular rate and rhythm. ABDOMEN: Soft. No tenderness. LABS: Hemoglobin is 10.4, white count 6.6, BUN of 20, creatinine 0.49. DIAGNOSTIC IMPRESSION AND PLAN: Patient with abdominal abscess, diverticulitis status post diverting colostomy and drainage of the abscess. Culture positive for Genia coagulase negative Staph and gram-positive bacilli. Patient has developed significant thrombocytopenia and discontinue cefepime and Eraxis as well as vancomycin, she is currently on Omnicef and Flagyl and will monitor clinical course closely. Continue supportive care. MMODL / IJN: [id number] / FABRICE
[2021-01-31 01:56] LABS: Glucose,Whole Blood 203 mg/dL (75-99)
[2021-01-31 05:42] LABS: Glucose,Whole Blood 198 mg/dL (75-99)
[2021-01-31 05:59] LABS: Basophils % (A) 0 %; Eosinophils % (A) 0 %; HCT 29.6 % (34.0-46.0); Lymphocytes # (A) 0.3 k/uL (1.0-4.8); Lymphocytes % (A) 4 %; MCH 32.3 pg (25.0-35.0); MCHC 33.7 g/dL (31.0-37.0); MCV 96.1 fL (80.0-100.0); Mean Platelet Volume 10.6; Monocytes # (A) 0.2 k/uL (0-1.0); Monocytes % (A) 3 %; Neutrophils # (A) 6.6 k/uL (1.3-7.7); Neutrophils % (A) 93 %; RBC 3.08 m/uL (3.80-5.40); RDW 15.1 % (11.5-15.5); WBC 7.1 k/uL (3.8-10.6)
[2021-01-31 06:19] LABS: INR 1.3 (<1.2); Prothrombin Time 12.9 sec (9.0-12.0)
[2021-01-31 06:20] LABS: ALT <6 U/L (4-34); AST 25 U/L (14-36); African American GFR (CKD) >90 (>60 ml/min/1.73 sqM); Albumin 2.5 g/dL (3.5-5.0); Albumin/Globulin Ratio 0.7; Alkaline Phosphatase 87 U/L (38-126); Anion Gap 3 mmol/L; Blood Urea Nitrogen 28 mg/dL (7-17); Calcium 8.5 mg/dL (8.4-10.2); Carbon Dioxide 29 mmol/L (22-30); Chloride 101 mmol/L (98-107); Globulin 3.8 g/dL; Glucose 206 mg/dL (74-99); Non-African American GFR(CKD) >90 (>60 ml/min/1.73 sqM); Phosphorus 3.2 mg/dL (2.5-4.5); Potassium 3.9 mmol/L (3.5-5.1); Sodium 133 mmol/L (137-145); Total Bilirubin 0.5 mg/dL (0.2-1.3); Total Protein 6.3 g/dL (6.3-8.2)
[2021-01-31 06:33] LABS: Platelet Count 41 k/uL (150-450)
[2021-01-31] MEDS: METOPROLOL SUCCINATE (ER) 50 MG TAB.ER.24H PO SCH (09:25)
[2021-01-31] MEDS: LOSARTAN 50 MG TAB PO SCH (09:25)
[2021-01-31] MEDS: SODIUM CHLORIDE TAB 1 GM TAB PO SCH ×3 (09:25→22:29)
[2021-01-31] MEDS: amLODIPine 10 MG TAB PO SCH (09:25)
[2021-01-31] MEDS: CITALOPRAM HYDROBROMIDE 10 MG TAB PO SCH (09:26)
[2021-01-31] MEDS: CEFDINIR 300 MG CAP PO SCH ×2 (09:26→22:29)
[2021-01-31] MEDS: metroNIDAZOLE-NS PMX 500 MG in SALINE 1 100ML.BAG IVPB SCH ×2 (09:26→16:37)
[2021-01-31] MEDS: PANTOPRAZOLE 40 MG/10 ML VIAL IVP SCH (09:26)
[2021-01-31] MEDS: LEVOTHYROXINE 25 MCG TAB PO SCH (09:26)
[2021-01-31] MEDS: CARBIDOPA-LEVODOPA 25-100 MG 1 EACH TAB PO SCH ×4 (09:26→23:11)
[2021-01-31] MEDS: methylPREDNISolone SOD SUCCI 125 MG/2 ML VIAL IV SCH ×2 (09:26→16:36)
--- NOTE | 2021-01-31 10:22 | P.PN ---
Subjective Progress Note Date: 01/31/21 Principal diagnosis: thrombocytopenia In f/u today pt is up in chair, much more alert, she states feeling better. Has some slow epistaxis causing clots to form in the nose, bruising is stable, no other bleeding. Objective - Vital Signs Vital signs: Vital Signs Temp 98.5 F 01/31/21 04:56 Pulse 91 01/31/21 04:56 Resp 15 01/31/21 04:56 BP 146/78 01/31/21 04:56 Pulse Ox 97 01/31/21 04:56 Intake & Output 01/30/21 01/31/21 01/31/21 18:59 06:59 18:59 Intake Total 9271.807 1800.25 Output Total 1 Balance 1964.598 7177.25 Weight 72.575 kg Intake: Intake, IV Titration 637.606 8702.25 Amount Immune Globulin ( 220.500 Gammagard) 30 gm In Empty Bag 1 bag @ Per Protocol IV .Q0M ONE Rx#: [id number] Immune Globulin ( 29.75 270.25 Gammagard) 30 gm In Empty Bag 1 bag @ Per Protocol IV .Q0M ONE Rx#: [id number] Mvi, Adult No.4 with Vit 1053 K 10 ml Trace (Conc-1Ml/ Dose) 1 ml Sodium Acetate 20 meq Sodium Chloride 4Meq/ml Vial 76 meq Magnesium Sulfate gm 1.5 gm Potassium Chloride 20 meq In Amino Acid 5%-D15w +Lytes*E* 1,000 ml @ 70 mls/hr IV .BY DURATION [facility] Rx#:[id number] Oral 780 Blood Product 276 Platelet Pheresis Pas-C 276 Unit [id number] Output: Stool 1 Other: Voiding Method Incontinent Incontinent Incontinent External Catheter # Voids 1 - Constitutional General appearance: Present: cooperative, no acute distress, obese - EENT Eyes: Present: anicteric sclerae, EOMI ENT: Present: hearing grossly normal, normal oropharynx - Respiratory Respiratory: bilateral: CTA, diminished - Cardiovascular Rhythm: regular Heart sounds: normal: S1, S2 Abnormal Heart Sounds: Absent: systolic murmur, diastolic murmur, rub, S3 Gallop, S4 Gallop, click, other - Peripheral edema leg Peripheral Edema: bilateral: None - Gastrointestinal General gastrointestinal: Present: normal bowel sounds, soft - Neurologic Neurologic: Present: CNII-XII intact - Musculoskeletal Musculoskeletal: Present: generalized weakness - Psychiatric Psychiatric: Present: A&O x's 3, appropriate affect, intact judgment & insight - Labs CBC & Chem 7: 01/31/21 05:05 01/31/21 05:05 Labs: Abnormal Lab Results - Last 24 Hours (Table) 01/30/21 01/30/21 01/31/21 Range/Units 11:07 17:15 01:55 RBC (3.80-5.40) m/uL Hgb (11.4-16.0) gm/dL Hct (34.0-46.0) % Plt Count (150-450) k/uL Lymphocytes # (1.0-4.8) k/uL PT (9.0-12.0) sec INR (<1.2) Sodium (137-145) mmol/L BUN (7-17) mg/dL Creatinine (0.52-1.04) mg/dL Glucose (74-99) mg/dL POC Glucose (mg/dL) 115 H 177 H 203 H (75-99) mg/dL Albumin (3.5-5.0) g/dL 01/31/21 01/31/21 01/31/21 Range/Units 05:05 05:05 05:05 RBC 3.08 L (3.80-5.40) m/uL Hgb 10.0 L (11.4-16.0) gm/dL Hct 29.6 L (34.0-46.0) % Plt Count 41 L D (150-450) k/uL Lymphocytes # 0.3 L (1.0-4.8) k/uL PT 12.9 H (9.0-12.0) sec INR 1.3 H (<1.2) Sodium 133 L (137-145) mmol/L BUN 28 H (7-17) mg/dL Creatinine 0.46 L (0.52-1.04) mg/dL Glucose 206 H (74-99) mg/dL POC Glucose (mg/dL) (75-99) mg/dL Albumin 2.5 L (3.5-5.0) g/dL 01/31/21 Range/Units 05:40 RBC (3.80-5.40) m/uL Hgb (11.4-16.0) gm/dL Hct (34.0-46.0) % Plt Count (150-450) k/uL Lymphocytes # (1.0-4.8) k/uL PT (9.0-12.0) sec INR (<1.2) Sodium (137-145) mmol/L BUN (7-17) mg/dL Creatinine (0.52-1.04) mg/dL Glucose (74-99) mg/dL POC Glucose (mg/dL) 198 H (75-99) mg/dL Albumin (3.5-5.0) g/dL Assessment and Plan (1) Thrombocytopenia Narrative/Plan: Plt did respond to platelet transfusion post administration of steroids and IVIG. Cont solumadrol for 1 more day Q 8 then, reduced to BID. Dr. Goode discussed the case with Dr. Olmos yesterday. 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 Vancomycin can exacerbate thrombocytopenia and cause it to be persistent despite transfusion as well. Vancomycin was stopped. Steroids and IVIG given, improved plt counts. Current Visit: Yes Status: Acute Priority: High Code(s): D69.6 - THROMBOCYTOPENIA, UNSPECIFIED SNOMED Code(s): 263934004 (2) Medication induced coagulopathy Narrative/Plan: Hold coumadin Vit K ordered to reverse INR in light of severe thrombocytopenia-INR 1.3 today. Minor bleeding, Hgb sstable Current Visit: Yes Status: Acute Priority: High Code(s): D68.9 - COAGULATI ON DEFECT, UNSPECIFIED; T50.905A - ADVERSE EFFECT OF UNSP DRUG/MEDS/BIOL SUBST, INIT SNOMED Code(s): 988736659 Plan: CBC daily Doctor attests: I performed a history and physical examination of this patient, developed impression and plan of care. Discussed with dictator. I agree with dictators note, documented as a scribe.
[2021-01-31 11:48] LABS: Glucose,Whole Blood 200 mg/dL (75-99)
[2021-01-31] MEDS ORDERED: IMMUNE GLOBULIN (GAMMAGARD) 30 GM in EMPTY BAG 1 BAG IV ONE (12:00)
--- NOTE | 2021-01-31 12:48 | P.PN ---
Subjective Progress Note Date: 01/31/21 CHIEF COMPLAINT: Abdominal pain HISTORY OF PRESENT ILLNESS: Patient is status post sigmoid colectomy with end colostomy and excision of left fallopian tube for diverticulitis with pelvic abscess. Patient sitting up at bedside chair. She reports that her pain is controlled. She denies any vomiting. Her oral intake is poor. Patient reports feeling better than yesterday. She did receive platelets and IVIG for her thrombocytopenia. And vancomycin discontinued and possibly contributing to thrombocytopenia. Her ostomy is functioning. Afebrile. WBC 7.1 platelets 41 sodium 133 Patient seen and examined with Dr. galindo PHYSICAL EXAM: VITAL SIGNS: Reviewed. GENERAL: Well-developed in no acute distress. HEENT: No sclera icterus. Extraocular movements grossly intact. Moist buccal mucosa. Head is atraumatic, normocephalic. ABDOMEN: Soft. Nondistended nontender incision site clean dry and intact Brown stool and air noted in ostomy bag. NEUROLOGIC: Alert and oriented. Cranial nerves II through XII grossly intact. ASSESSMENT: 1. Diverticulitis with perforation and pelvic abscess status post sigmoid colectomy with end colostomy and excision of left fallopian tube on 01/16/2021 2. Anemia status post blood transfusion during this admission 3. Hyponatremia followed by nephrology 4. Thrombocytopenia followed by hematology PLAN: -Continue low fiber diet -Encourage patient to increase oral intake -Continue TPN for nutrition support -Continue IV antibiotics per ID -Continue pain medication as needed. -Encouraged patient to increase activity and to use incentive spirometer -Patient will require placement at time of discharge Physician Junior Accountant Bookkeeper note has been reviewed by physician. Signing provider agrees with the documented findings, assessment, and plan of care. Objective - Vital Signs Vital signs: Vital Signs Temp 97.6 F 01/31/21 11:36 Pulse 85 01/31/21 11:36 Resp 16 01/31/21 11:36 BP 153/76 01/31/21 11:36 Pulse Ox 95 01/31/21 11:36 Intake & Output 01/30/21 01/31/21 01/31/21 18:59 06:59 18:59 Intake Total 4101.626 0685.25 13.417 Output Total 1 Balance 2222.459 7245.25 13.417 Weight 72.575 kg Intake: Intake, IV Titration 038.858 9324.25 13.417 Amount Immune Globulin ( 220.500 Gammagard) 30 gm In Empty Bag 1 bag @ Per Protocol IV .Q0M ONE Rx#: [id number] Immune Globulin ( 29.75 270.25 Gammagard) 30 gm In Empty Bag 1 bag @ Per Protocol IV .Q0M ONE Rx#: [id number] Immune Globulin ( 13.417 Gammagard) 30 gm In Empty Bag 1 bag @ Per Protocol IV .Q0M ONE Rx#: [id number] Mvi, Adult No.4 with Vit 1053 K 10 ml Trace (Conc-1Ml/ Dose) 1 ml Sodium Acetate 20 meq Sodium Chloride 4Meq/ml Vial 76 meq Magnesium Sulfate gm 1.5 gm Potassium Chloride 20 meq In Amino Acid 5%-D15w +Lytes*E* 1,000 ml @ 70 mls/hr IV .BY DURATION [facility] Rx#:[id number] Oral 780 Blood Product 276 Platelet Pheresis Pas-C 276 Unit [id number] Output: Stool 1 Other: Voiding Method Incontinent Incontinent Incontinent External Catheter # Voids 1 - Labs CBC & Chem 7: 01/31/21 05:05 01/31/21 05:05 Labs: Abnormal Lab Results - Last 24 Hours (Table) 01/30/21 01/31/21 01/31/21 Range/Units 17:15 01:55 05:05 RBC (3.80-5.40) m/uL Hgb (11.4-16.0) gm/dL Hct (34.0-46.0) % Plt Count (150-450) k/uL Lymphocytes # (1.0-4.8) k/uL PT 12.9 H (9.0-12.0) sec INR 1.3 H (<1.2) Sodium (137-145) mmol/L BUN (7-17) mg/dL Creatinine (0.52-1.04) mg/dL Glucose (74-99) mg/dL POC Glucose (mg/dL) 177 H 203 H (75-99) mg/dL Albumin (3.5-5.0) g/dL 01/31/21 01/31/21 01/31/21 Range/Units 05:05 05:05 05:40 RBC 3.08 L (3.80-5.40) m/uL Hgb 10.0 L (11.4-16.0) gm/dL Hct 29.6 L (34.0-46.0) % Plt Count 41 L D (150-450) k/uL Lymphocytes # 0.3 L (1.0-4.8) k/uL PT (9.0-12.0) sec INR (<1.2) Sodium 133 L (137-145) mmol/L BUN 28 H (7-17) mg/dL Creatinine 0.46 L (0.52-1.04) mg/dL Glucose 206 H (74-99) mg/dL POC Glucose (mg/dL) 198 H (75-99) mg/dL Albumin 2.5 L (3.5-5.0) g/dL 01/31/21 Range/Units 11:46 RBC (3.80-5.40) m/uL Hgb (11.4-16.0) gm/dL Hct (34.0-46.0) % Plt Count (150-450) k/uL Lymphocytes # (1.0-4.8) k/uL PT (9.0-12.0) sec INR (<1.2) Sodium (137-145) mmol/L BUN (7-17) mg/dL Creatinine (0.52-1.04) mg/dL Glucose (74-99) mg/dL POC Glucose (mg/dL) 200 H (75-99) mg/dL Albumin (3.5-5.0) g/dL
[2021-01-31 17:10] LABS: Glucose,Whole Blood 212 mg/dL (75-99)
--- NOTE | 2021-01-31 17:53 | PN ---
PROGRESS NOTE Patient is seen for followup for hyponatremia, her serum sodium staying about 133 to 134 mEq/L. She did get a dose of Samsca over the weekend. PHYSICAL EXAMINATION: On examination today, patient is comfortable. Blood pressure 146/78, heart rate 91 per minute. She is afebrile. Examination shows good air entry bilaterally in the lungs. Heart sounds are heard. Abdomen is soft. Examination of lower extremities shows no evidence of edema. GEAR INSPECTOR exam grossly intact. LABS: Sodium 133, potassium 3.9, serum creatinine 0.46. ASSESSMENT: 1. Hyponatremia secondary to syndrome of inappropriate antidiuretic hormone, status post Samsca, currently improved. Patient is eating slightly better. This will help maintain her sodium level as well. She is advised to maintain adequate protein intake. She is maintained on TPN currently. She is also on sodium chloride tabs, which we can continue for now. 2. Status post explorative laparotomy and sigmoid colectomy for diverticulitis and pelvic abscess, currently with colostomy. PLAN: Continue to monitor serum sodium. Continue the sodium chloride tabs for now. MMODL / IJN: [id number] /
[2021-01-31] MEDS: ZOLPIDEM 5 MG TAB PO SCH (22:29)
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
[2021-02-01 01:05] LABS: Glucose,Whole Blood 218 mg/dL (75-99)
[2021-02-01] MEDS: metroNIDAZOLE-NS PMX 500 MG in SALINE 1 100ML.BAG IVPB SCH ×4 (01:50→23:45)
[2021-02-01] MEDS: methylPREDNISolone SOD SUCCI 125 MG/2 ML VIAL IV SCH ×4 (01:50→23:44)
[2021-02-01 02:16] LABS: Glucose,Whole Blood 212 mg/dL (75-99)
[2021-02-01 06:19] LABS: Glucose,Whole Blood 158 mg/dL (75-99)
--- NOTE | 2021-02-01 06:53 | PN ---
PROGRESS NOTE DATE OF SERVICE: 01/31/2021 REASON FOR FOLLOWUP: An intraabdominal abscess. INTERVAL HISTORY: Patient is currently afebrile. The patient is breathing comfortably. The patient denies having any chest pain. No shortness of breath or cough. Abdominal pain is currently controlled. No diarrhea. PHYSICAL EXAMINATION: Blood pressure 146/75, pulse of 84, temperature 97.8. She is 99% on room air. General description is an elderly female lying in bed in no distress. Respiratory system: Unlabored breathing, clear to auscultation anteriorly. Heart S1, S2. Regular rate and rhythm. Abdomen is soft, no tenderness. LABS: Hemoglobin is 10.3, white count 7.1, BUN of 28, creatinine 0.46, platelet count up to 41. DIAGNOSTIC IMPRESSION AND PLAN: Patient with ruptured diverticulitis, status post diverting colostomy in this patient with abdominal culture with multiple pathogens. She has completed a course of the vancomycin, cefepime, currently on Omnicef and Flagyl. May continue for short course. Monitor clinical course closely. MMODL / IJN: [id number] / MTDD
[2021-02-01] MEDS ORDERED: INSULIN ASPART (NovoLOG) 100 UNIT/ML VIAL SQ SCH (07:30)
[2021-02-01 08:04] LABS: Basophils % (A) 0 %; Eosinophils % (A) 0 %; HCT 27.4 % (34.0-46.0); HGB 9.6 gm/dL (11.4-16.0); Lymphocytes # (A) 0.3 k/uL (1.0-4.8); Lymphocytes % (A) 4 %; MCH 33.4 pg (25.0-35.0); MCHC 35.1 g/dL (31.0-37.0); MCV 95.1 fL (80.0-100.0); Mean Platelet Volume 9.8; Monocytes # (A) 0.4 k/uL (0-1.0); Monocytes % (A) 5 %; Neutrophils # (A) 7.9 k/uL (1.3-7.7); Neutrophils % (A) 91 %; RBC 2.88 m/uL (3.80-5.40); RDW 15.2 % (11.5-15.5); WBC 8.7 k/uL (3.8-10.6)
[2021-02-01 08:14] LABS: ALT 6 U/L (4-34); AST 25 U/L (14-36); African American GFR (CKD) >90 (>60 ml/min/1.73 sqM); Albumin 2.6 g/dL (3.5-5.0); Albumin/Globulin Ratio 0.6; Alkaline Phosphatase 88 U/L (38-126); Anion Gap 5 mmol/L; Blood Urea Nitrogen 34 mg/dL (7-17); Calcium 8.5 mg/dL (8.4-10.2); Carbon Dioxide 28 mmol/L (22-30); Chloride 101 mmol/L (98-107); Globulin 4.5 g/dL; Glucose 149 mg/dL (74-99); Magnesium 2.1 mg/dL (1.6-2.3); Non-African American GFR(CKD) >90 (>60 ml/min/1.73 sqM); Potassium 4.2 mmol/L (3.5-5.1); Sodium 134 mmol/L (137-145); Total Bilirubin 0.7 mg/dL (0.2-1.3); Total Protein 7.1 g/dL (6.3-8.2)
[2021-02-01 08:16] LABS: Platelet Count 89 k/uL (150-450)
[2021-02-01] MEDS: METOPROLOL SUCCINATE (ER) 50 MG TAB.ER.24H PO SCH (08:57)
[2021-02-01] MEDS: amLODIPine 10 MG TAB PO SCH (08:57)
[2021-02-01] MEDS: LOSARTAN 50 MG TAB PO SCH (08:57)
[2021-02-01] MEDS: FAT EMULSION 20% 250 ML in EMPTY BAG 1 BAG IV SCH ×2 (08:57→17:01)
[2021-02-01] MEDS: PANTOPRAZOLE 40 MG/10 ML VIAL IVP SCH (08:57)
[2021-02-01] MEDS: SODIUM CHLORIDE TAB 1 GM TAB PO SCH ×2 (08:58→15:12)
[2021-02-01] MEDS: LEVOTHYROXINE 25 MCG TAB PO SCH (08:58)
[2021-02-01] MEDS: CEFDINIR 300 MG CAP PO SCH ×2 (08:58→20:03)
[2021-02-01] MEDS: CITALOPRAM HYDROBROMIDE 10 MG TAB PO SCH (08:58)
[2021-02-01] MEDS: CARBIDOPA-LEVODOPA 25-100 MG 1 EACH TAB PO SCH ×4 (10:16→23:44)
--- NOTE | 2021-02-01 11:47 | P.PN ---
Subjective Progress Note Date: 02/01/21 CHIEF COMPLAINT: Abdominal pain HISTORY OF PRESENT ILLNESS: Patient is status post sigmoid colectomy with end colostomy and excision of left fallopian tube for diverticulitis with pelvic abscess. Patient sitting up at bedside chair. She reports that her pain is controlled. She denies any vomiting. Patient was eating her breakfast this morning. She did receive platelets and IVIG for her thrombocytopenia. And vancomycin discontinued and possibly contributing to thrombocytopenia. Her ostomy is functioning. Afebrile. WBC 8.7 hgb 9.6 platelets 89 sodium 134 Patient seen and examined with Dr. Orona PHYSICAL EXAM: VITAL SIGNS: Reviewed. GENERAL: Well-developed in no acute distress. HEENT: No sclera icterus. Extraocular movements grossly intact. Moist buccal mucosa. Head is atraumatic, normocephalic. ABDOMEN: Soft. Nondistended nontender incision site clean dry and intact Brown stool and air noted in ostomy bag. NEUROLOGIC: Alert and oriented. Cranial nerves II through XII grossly intact. ASSESSMENT: 1. Diverticulitis with perforation and pelvic abscess status post sigmoid colectomy with end colostomy and excision of left fallopian tube on 01/16/2021 2. Anemia status post blood transfusion during this admission 3. Hyponatremia followed by nephrology 4. Thrombocytopenia followed by hematology PLAN: -Continue low fiber diet -Encourage patient to increase oral intake -Continue TPN for nutrition support -Continue IV antibiotics per ID -Continue pain medication as needed. -Encouraged patient to increase activity and to use incentive spirometer -Patient will require placement at time of discharge Physician Adhesion Tester note has been reviewed by physician. Signing provider agrees with the documented findings, assessment, and plan of care. Objective - Vital Signs Vital signs: Vital Signs Temp 98.5 F 02/01/21 05:15 Pulse 79 02/01/21 05:15 Resp 18 02/01/21 05:15 BP 137/71 02/01/21 05:15 Pulse Ox 97 02/01/21 05:15 Intake & Output 01/31/21 02/01/21 02/01/21 18:59 06:59 18:59 Intake Total 1308.667 300 Output Total 625 360 Balance 683.667 -60 Intake: Intake, IV Titration 1308.667 Amount Immune Globulin ( 132.417 Gammagard) 30 gm In Empty Bag 1 bag @ Per Protocol IV .Q0M ONE Rx#: [id number] Immune Globulin ( 138.250 Gammagard) 30 gm In Empty Bag 1 bag @ Per Protocol IV .Q0M ONE Rx#: [id number] Sodium Acetate 20 meq 1038 Sodium Chloride 4Meq/ml Vial 60 meq Potassium Chloride 20 meq Magnesium Sulfate gm 1.5 gm In Amino Acid 5%-D15w+Lytes* E* 1,000 ml @ 70 mls/hr IV .BY DURATION [facility] Rx#: [id number] Oral 300 Output: Urine 600 325 Stool 25 35 Other: Voiding Method Incontinent Incontinent Incontinent External Catheter External Catheter External Catheter - Labs CBC & Chem 7: 02/01/21 05:59 02/01/21 05:59 Labs: Abnormal Lab Results - Last 24 Hours (Table) 01/31/21 01/31/21 02/01/21 Range/Units 11:46 17:09 01:04 RBC (3.80-5.40) m/uL Hgb (11.4-16.0) gm/dL Hct (34.0-46.0) % Plt Count (150-450) k/uL Neutrophils # (1.3-7.7) k/uL Lymphocytes # (1.0-4.8) k/uL Sodium (137-145) mmol/L BUN (7-17) mg/dL Creatinine (0.52-1.04) mg/dL Glucose (74-99) mg/dL POC Glucose (mg/dL) 200 H 212 H 218 H (75-99) mg/dL Albumin (3.5-5.0) g/dL 02/01/21 02/01/21 02/01/21 Range/Units 02:16 05:59 05:59 RBC 2.88 L (3.80-5.40) m/uL Hgb 9.6 L (11.4-16.0) gm/dL Hct 27.4 L (34.0-46.0) % Plt Count 89 L D (150-450) k/uL Neutrophils # 7.9 H (1.3-7.7) k/uL Lymphocytes # 0.3 L (1.0-4.8) k/uL Sodium 134 L (137-145) mmol/L BUN 34 H (7-17) mg/dL Creatinine 0.47 L (0.52-1.04) mg/dL Glucose 149 H (74-99) mg/dL POC Glucose (mg/dL) 212 H (75-99) mg/dL Albumin 2.6 L (3.5-5.0) g/dL 02/01/21 Range/Units 06:18 RBC (3.80-5.40) m/uL Hgb (11.4-16.0) gm/dL Hct (34.0-46.0) % Plt Count (150-450) k/uL Neutrophils # (1.3-7.7) k/uL Lymphocytes # (1.0-4.8) k/uL Sodium (137-145) mmol/L BUN (7-17) mg/dL Creatinine (0.52-1.04) mg/dL Glucose (74-99) mg/dL POC Glucose (mg/dL) 158 H (75-99) mg/dL Albumin (3.5-5.0) g/dL
[2021-02-01 11:59] LABS: Glucose,Whole Blood 176 mg/dL (75-99)
--- NOTE | 2021-02-01 13:05 | P.PN ---
Subjective Progress Note Date: 02/01/21 Principal diagnosis: thrombocytopenia In f/u today pt is up in chair again, she continues to have slow epistaxis causing clots to form in the nose, bruising looks worse today than yesterday, the right upper extremity does have a hematoma. She denies any other bleeding Objective - Vital Signs Vital signs: Vital Signs Temp 98.3 F 02/01/21 12:10 Pulse 79 02/01/21 12:10 Resp 18 02/01/21 12:10 BP 148/79 02/01/21 12:10 Pulse Ox 98 02/01/21 12:10 Intake & Output 01/31/21 02/01/21 02/01/21 18:59 06:59 18:59 Intake Total 1308.667 300 Output Total 625 360 Balance 683.667 -60 Intake: Intake, IV Titration 1308.667 Amount Immune Globulin ( 132.417 Gammagard) 30 gm In Empty Bag 1 bag @ Per Protocol IV .Q0M ONE Rx#: [id number] Immune Globulin ( 138.250 Gammagard) 30 gm In Empty Bag 1 bag @ Per Protocol IV .Q0M ONE Rx#: [id number] Sodium Acetate 20 meq 1038 Sodium Chloride 4Meq/ml Vial 60 meq Potassium Chloride 20 meq Magnesium Sulfate gm 1.5 gm In Amino Acid 5%-D15w+Lytes* E* 1,000 ml @ 70 mls/hr IV .BY DURATION [facility] Rx#: [id number] Oral 300 Output: Urine 600 325 Stool 25 35 Other: Voiding Method Incontinent Incontinent Incontinent External Catheter External Catheter External Catheter - Constitutional General appearance: Present: cooperative, no acute distress, obese - EENT Eyes: Present: anicteric sclerae, EOMI ENT: Present: hearing grossly normal - Respiratory Respiratory: bilateral: CTA - Cardiovascular Heart sounds: normal: S1, S2 - Peripheral edema leg Peripheral Edema: bilateral: 1+ - Gastrointestinal General gastrointestinal: Present: normal bowel sounds, soft - Integumentary Integumentary Comment(s): Right upper extremity rather large hematoma question is from blood pressure cuff. She does have bruising on her hands as well as her finger tips from needle sticks and blood glucose monitoring - Neurologic Neurologic Comment(s): Essential tremor - Musculoskeletal Musculoskeletal: Present: generalized weakness - Psychiatric Psychiatric: Present: A&O x's 3, appropriate affect, intact judgment & insight - Labs CBC & Chem 7: 02/01/21 05:59 02/01/21 05:59 Labs: Abnormal Lab Results - Last 24 Hours (Table) 01/31/21 02/01/21 02/01/21 Range/Units 17:09 01:04 02:16 RBC (3.80-5.40) m/uL Hgb (11.4-16.0) gm/dL Hct (34.0-46.0) % Plt Count (150-450) k/uL Neutrophils # (1.3-7.7) k/uL Lymphocytes # (1.0-4.8) k/uL Sodium (137-145) mmol/L BUN (7-17) mg/dL Creatinine (0.52-1.04) mg/dL Glucose (74-99) mg/dL POC Glucose (mg/dL) 212 H 218 H 212 H (75-99) mg/dL Albumin (3.5-5.0) g/dL 02/01/21 02/01/21 02/01/21 Range/Units 05:59 05:59 06:18 RBC 2.88 L (3.80-5.40) m/uL Hgb 9.6 L (11.4-16.0) gm/dL Hct 27.4 L (34.0-46.0) % Plt Count 89 L D (150-450) k/uL Neutrophils # 7.9 H (1.3-7.7) k/uL Lymphocytes # 0.3 L (1.0-4.8) k/uL Sodium 134 L (137-145) mmol/L BUN 34 H (7-17) mg/dL Creatinine 0.47 L (0.52-1.04) mg/dL Glucose 149 H (74-99) mg/dL POC Glucose (mg/dL) 158 H (75-99) mg/dL Albumin 2.6 L (3.5-5.0) g/dL 02/01/21 Range/Units 11:51 RBC (3.80-5.40) m/uL Hgb (11.4-16.0) gm/dL Hct (34.0-46.0) % Plt Count (150-450) k/uL Neutrophils # (1.3-7.7) k/uL Lymphocytes # (1.0-4.8) k/uL Sodium (137-145) mmol/L BUN (7-17) mg/dL Creatinine (0.52-1.04) mg/dL Glucose (74-99) mg/dL POC Glucose (mg/dL) 176 H (75-99) mg/dL Albumin (3.5-5.0) g/dL Assessment and Plan (1) Thrombocytopenia Narrative/Plan: Plt did respond to platelet transfusion post administration of steroids and IVIG. Cont solumadrol reduced to BID today. 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 Vancomycin can exacerbate thrombocytopenia and cause it to be persistent despite transfusion as well. Vancomycin was stopped. Steroids and IVIG given. Plt cont to improve today Current Visit: Yes Status: Acute Priority: High Code(s): D69.6 - THROMBOCYTOPENIA, UNSPECIFIED SNOMED Code(s): 746572285 (2) Medication induced coagulopathy Narrative/Plan: Cont to hold coumadin, bruising and persistent epistaxis. Warm compresses and NS nasal spray Cont to monitor Hgb Current Visit: Yes Status: Acute Priority: High Code(s): D68.9 - COAGULATION DEFECT, UNSPECIFIED; T50.905A - ADVERSE EFFECT OF UNSP DRUG/MEDS/BIOL SUBST, INIT SNOMED Code(s): 650434557 Plan: CBC daily Doctor attests: I performed a history and physical examination of this patient, developed impression and plan of care. Discussed with dictator. I agree with dictators note, documented as a scribe.
[2021-02-01] MEDS ORDERED: SALINE NASAL GEL 14.1 GM TUBE TOPICAL PRN (13:06)
[2021-02-01 17:19] LABS: Glucose,Whole Blood 121 mg/dL (75-99)
--- NOTE | 2021-02-01 20:02 | PN ---
PROGRESS NOTE Patient is seen for followup for hyponatremia secondary to SIADH. Her sodium is staying stable at about 133-134. The patient is maintained on sodium chloride tabs, however, she is complaining of increased lower extremity edema. She has been maintained on TPN as she is not able to eat much. This is being discontinued today. The patient is encouraged to increase oral intake. She has received a couple of doses of Samsca and is currently able to hold her sodium with fluid restriction as well. Status post explorative laparotomy and sigmoid colectomy for diverticulitis and pelvic abscess, currently with a colostomy. PLAN: Decrease sodium chloride tabs to 1 g daily. Continue with oral fluid restriction. Agree with decreasing/discontinue TPN and continue to encourage increased oral intake. MMODL / IJN: [id number] /
[2021-02-01] MEDS: ZOLPIDEM 5 MG TAB PO SCH (20:03)
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
--- NOTE | 2021-02-01 23:13 | PN ---
PROGRESS NOTE DATE OF SERVICE: 02/01/2021 REASON FOR FOLLOWUP: Intraabdominal abscess and perforated diverticulitis. INTERVAL HISTORY: The patient is currently afebrile. Patient is breathing comfortably. The patient denies having any chest pain, shortness of breath or cough. Abdominal pain is currently controlled. No nausea, vomiting or diarrhea. PHYSICAL EXAMINATION: Her blood pressure is 146/76, pulse of 83, temperature 99.7. She is 98%. General description is an elderly female lying in bed in no distress. Respiratory system: Unlabored breathing, clear to auscultation anteriorly. HEART: S1, S2. Regular rate and rhythm. ABDOMEN: Soft, no tenderness. LABS: Hemoglobin 11.1, white count 8.7. BUN of 34, creatinine 0.47. DIAGNOSTIC IMPRESSION AND PLAN: Patient with intraabdominal perforated diverticulitis, abdominal culture multiple pathogens, underlying abscess has been adequately treated. White count is normal. Currently on oral Ceftin and Flagyl to continue for a few days and continue supportive care. . MMODL / IJN: [id number] / MTDD
[2021-02-02 03:21] LABS: Glucose,Whole Blood 226 mg/dL (75-99)
[2021-02-02 05:45] LABS: African American GFR (CKD) >90 (>60 ml/min/1.73 sqM); Anion Gap 2 mmol/L; Blood Urea Nitrogen 34 mg/dL (7-17); Calcium 8.5 mg/dL (8.4-10.2); Carbon Dioxide 28 mmol/L (22-30); Chloride 101 mmol/L (98-107); Glucose 209 mg/dL (74-99); Non-African American GFR(CKD) >90 (>60 ml/min/1.73 sqM); Phosphorus 2.8 mg/dL (2.5-4.5); Sodium 131 mmol/L (137-145)
[2021-02-02 05:49] LABS: Ionized Calcium 5.2 mg/dL (4.5-5.3)
[2021-02-02 06:13] LABS: Glucose,Whole Blood 221 mg/dL (75-99)
[2021-02-02] MEDS: methylPREDNISolone SOD SUCCI 125 MG/2 ML VIAL IV SCH ×2 (09:01→15:00)
[2021-02-02] MEDS: PANTOPRAZOLE 40 MG/10 ML VIAL IVP SCH (09:01)
[2021-02-02] MEDS: SODIUM CHLORIDE TAB 1 GM TAB PO SCH (09:02)
[2021-02-02] MEDS: CEFDINIR 300 MG CAP PO SCH ×2 (09:02→22:33)
[2021-02-02] MEDS: CITALOPRAM HYDROBROMIDE 10 MG TAB PO SCH (09:02)
[2021-02-02] MEDS: LOSARTAN 50 MG TAB PO SCH (09:02)
[2021-02-02] MEDS: LEVOTHYROXINE 25 MCG TAB PO SCH (09:02)
[2021-02-02] MEDS: amLODIPine 10 MG TAB PO SCH (09:02)
[2021-02-02] MEDS: CARBIDOPA-LEVODOPA 25-100 MG 1 EACH TAB PO SCH ×4 (09:02→22:33)
[2021-02-02] MEDS: METOPROLOL SUCCINATE (ER) 50 MG TAB.ER.24H PO SCH (09:03)
[2021-02-02] MEDS: metroNIDAZOLE-NS PMX 500 MG in SALINE 1 100ML.BAG IVPB SCH ×2 (09:17→15:01)
[2021-02-02] MEDS: ACETAMINOPHEN TAB 325 MG TAB PO PRN (11:06)
[2021-02-02 11:13] LABS: Glucose,Whole Blood 156 mg/dL (75-99)
--- NOTE | 2021-02-02 14:01 | P.PN ---
Subjective Progress Note Date: 02/02/21 CHIEF COMPLAINT: Abdominal pain HISTORY OF PRESENT ILLNESS: Patient is status post sigmoid colectomy with end colostomy and excision of left fallopian tube for diverticulitis with pelvic abscess. Patient sitting up at bedside chair. She reports that her pain is controlled. She denies any vomiting. Discussed case with dietitian. Patient is only eating about 25% of her meals. She is not meeting her calorie needs. She does remain on TPN. She did receive platelets and IVIG for her thrombocytopenia. And vancomycin discontinued and possibly contributing to thrombocytopenia. Her ostomy is functioning. Afebrile. Sodium 131 Patient seen and examined with Dr. Orona PHYSICAL EXAM: VITAL SIGNS: Reviewed. GENERAL: Well-developed in no acute distress. HEENT: No sclera icterus. Extraocular movements grossly intact. Moist buccal mucosa. Head is atraumatic, normocephalic. ABDOMEN: Soft. Nondistended nontender incision site clean dry and intact Brown stool and air noted in ostomy bag. NEUROLOGIC: Alert and oriented. Cranial nerves II through XII grossly intact. ASSESSMENT: 1. Diverticulitis with perforation and pelvic abscess status post sigmoid colectomy with end colostomy and excision of left fallopian tube on 01/16/2021 2. Anemia status post blood transfusion during this admission 3. Hyponatremia followed by nephrology 4. Thrombocytopenia and possible ITP followed by hematology PLAN: -Continue low fiber diet -Encourage patient to increase oral intake -Continue TPN for nutrition support -Continue IV antibiotics per ID -Continue pain medication as needed. -Encouraged patient to increase activity and to use incentive spirometer -Patient will require placement at time of discharge Physician Collision Repairer note has been reviewed by physician. Signing provider agrees with the documented findings, assessment, and plan of care. Objective - Vital Signs Vital signs: Vital Signs Temp 97.5 F L 02/02/21 11:04 Pulse 82 02/02/21 11:04 Resp 16 02/02/21 11:04 BP 142/78 02/02/21 11:04 Pulse Ox 97 02/02/21 11:04 Intake & Output 02/01/21 02/02/21 02/02/21 18:59 06:59 18:59 Intake Total 1594 Output Total 470 1025 Balance -470 -1025 1594 Weight 72.575 kg Intake: Intake, IV Titration 1054 Amount Mvi, Adult No.4 with Vit 1054 K 10 ml Trace (Conc-1Ml/ Dose) 1 ml Sodium Acetate 20 meq Sodium Chloride 4Meq/ml Vial 80 meq Magnesium Sulfate gm 1.5 gm Potassium Chloride 20 meq In Amino Acid 5%-D15w +Lytes*E* 1,000 ml @ 70 mls/hr IV .BY DURATION [facility] Rx#:[id number] Oral 540 Output: Urine 450 950 Stool 20 75 Other: Voiding Method Incontinent Incontinent External Catheter External Catheter - Labs CBC & Chem 7: 02/01/21 05:59 02/02/21 04:56 Labs: Abnormal Lab Results - Last 24 Hours (Table) 02/01/21 02/02/21 02/02/21 Range/Units 17:16 03:20 04:56 Sodium 131 L (137-145) mmol/L BUN 34 H (7-17) mg/dL Creatinine 0.48 L (0.52-1.04) mg/dL Glucose 209 H (74-99) mg/dL POC Glucose (mg/dL) 121 H 226 H (75-99) mg/dL 02/02/21 02/02/21 Range/Units 06:11 11:06 Sodium (137-145) mmol/L BUN (7-17) mg/dL Creatinine (0.52-1.04) mg/dL Glucose (74-99) mg/dL POC Glucose (mg/dL) 221 H 156 H (75-99) mg/dL
--- NOTE | 2021-02-02 15:53 | P.PN ---
Subjective Progress Note Date: 02/02/21 Principal diagnosis: thrombocytopenia In f/u today pt is up in chair, daughters of the bedside. She states that her nose is less congested, she did not have any blood clots today. Her bruising is certainly improved on her arm as well as her hands and fingertips. She is denying any other bleeding. Objective - Vital Signs Vital signs: Vital Signs Temp 97.5 F L 02/02/21 11:04 Pulse 82 02/02/21 11:04 Resp 16 02/02/21 11:04 BP 142/78 02/02/21 11:04 Pulse Ox 97 02/02/21 11:04 Intake & Output 02/01/21 02/02/21 02/02/21 18:59 06:59 18:59 Intake Total 1834 Output Total 470 1025 Balance -470 -1025 1834 Weight 72.575 kg Intake: Intake, IV Titration 1054 Amount Mvi, Adult No.4 with Vit 1054 K 10 ml Trace (Conc-1Ml/ Dose) 1 ml Sodium Acetate 20 meq Sodium Chloride 4Meq/ml Vial 80 meq Magnesium Sulfate gm 1.5 gm Potassium Chloride 20 meq In Amino Acid 5%-D15w +Lytes*E* 1,000 ml @ 70 mls/hr IV .BY DURATION [facility] Rx#:[id number] Oral 780 Output: Urine 450 950 Stool 20 75 Other: Voiding Method Incontinent Incontinent External Catheter External Catheter - Constitutional General appearance: Present: cooperative, no acute distress, obese - EENT Eyes: Present: anicteric sclerae, EOMI ENT: Present: hearing grossly normal - Respiratory Details: Respirations even and unlabored at rest - Integumentary Integumentary Comment(s): Bruise on the right upper extremity is definitely stack supervisor in color, the underlying hematomas smaller. The bruises on the patient's right hand as well as all of her fingertips are much improved as well - Neurologic Neurologic Comment(s): Essential tremor - Musculoskeletal Musculoskeletal: Present: generalized weakness - Psychiatric Psychiatric: Present: A&O x's 3, appropriate affect, intact judgment & insight - Labs CBC & Chem 7: 02/01/21 05:59 02/02/21 04:56 Labs: Abnormal Lab Results - Last 24 Hours (Table) 02/01/21 02/02/21 02/02/21 Range/Units 17:16 03:20 04:56 Sodium 131 L (137-145) mmol/L BUN 34 H (7-17) mg/dL Creatinine 0.48 L (0.52-1.04) mg/dL Glucose 209 H (74-99) mg/dL POC Glucose (mg/dL) 121 H 226 H (75-99) mg/dL 02/02/21 02/02/21 Range/Units 06:11 11:06 Sodium (137-145) mmol/L BUN (7-17) mg/dL Creatinine (0.52-1.04) mg/dL Glucose (74-99) mg/dL POC Glucose (mg/dL) 221 H 156 H (75-99) mg/dL Assessment and Plan (1) Thrombocytopenia Narrative/Plan: Plt did respond to platelet transfusion post administration of steroids and IVIG. Solu-Medrol dose this a.m., no dose this evening, start tapering oral prednisone in the a.m. 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 Vancomycin can exacerbate thrombocytopenia and cause it to be persistent despite transfusion as well. Vancomycin was stopped. Steroids and IVIG given. Steroids are able to be reduced now. Patient will be provided with instructions for a taper. Case discussed with the RN. Prescription will be put in the chart in case patient goes home. Also, will put instructions for prednisone taper in instructions in case patient goes to an ECF/rehab. Will not send the prescription for the prednisone so, that will have to be sent if she goes home. Plt recheck in the a.m. Current Visit: Yes Status: Acute Priority: High Code(s): D69.6 - TH ROMBOCYTOPENIA, UNSPECIFIED SNOMED Code(s): 311685098 (2) Medication induced coagulopathy Narrative/Plan: Cont Warm compresses to hematomas and NS nasal spray Cont to monitor Hgb With the improvement and platelets of the last several days and improvements in bruising would anticipate okay to resume patient's Coumadin with close monitoring. Current Visit: Yes Status: Acute Priority: High Code(s): D68.9 - COAGULATION DEFECT, UNSPECIFIED; T50.905A - ADVERSE EFFECT OF UNSP DRUG/MEDS/BIOL SUBST, INIT SNOMED Code(s): 712298065 Plan: CBC daily I reviewed the patient's clinical course with the daughter at the bedside. I discussed with her the potential causes for the patient's ITP. I explained that this may never happen again or, it could happen again. Patient was advised to monitor for easy bruising and bloody noses. We also discussed the prednisone ta per. All questions were answered to their satisfaction. Doctor attests: I performed a history and physical examination of this patient, developed impression and plan of care. Discussed with dictator. I agree with dictators note, documented as a scribe.
[2021-02-02 17:25] LABS: Glucose,Whole Blood 146 mg/dL (75-99)
[2021-02-02] MEDS ORDERED: TOLVAPTAN 15 MG 1/2 TABLET PO ONE (18:00)
--- NOTE | 2021-02-02 18:07 | PN ---
PROGRESS NOTE Patient is seen for followup for hyponatremia. She is sitting up in a bedside chair today. Patient denies any significant complaints except for feeling weak. Her nausea seems to be slightly improved. She did state that she ate some oatmeal this morning. PHYSICAL EXAMINATION: On examination today, blood pressure 143/66, heart rate 76 per minute. She is afebrile. EXAMINATION OF THE HEART: S1 and S2. EXAMINATION OF LUNGS: Bilateral breath sounds are heard. ABDOMEN: Soft, non-tender. Examination of lower extremities shows edema 1+ bilaterally. COMBER TENDER exam grossly intact. LABS: Sodium is 131 today. Serum creatinine 0.48. ASSESSMENT: 1. Hyponatremia secondary to syndrome of inappropriate antidiuretic hormone. Will repeat another dose of Samsca today. Continue with the sodium chloride tabs. It was decreased to once a day from t.i.d. secondary to edema and hypertension. 2. Status post explorative laparotomy and sigmoid colectomy with colostomy for diverticulitis. 3. Hypertension. PLAN: Samsca 7.5 mg today. Continue with oral fluid restriction. MMODL / IJN: [id number] /
--- NOTE | 2021-02-02 19:44 | PN ---
PROGRESS NOTE DATE OF SERVICE: 02/02/2021 REASON FOR FOLLOWUP: Abdominal abscess, perforated diverticulitis. INTERVAL HISTORY: The patient is currently afebrile. The patient is breathing comfortably. The patient denies having any chest pain or shortness of breath or cough. No significant abdominal pain. Has been tolerating her diet. No diarrhea. PHYSICAL EXAMINATION: Blood pressure 142/78 with a pulse of 82, temperature 97.5. She is 97% on room air. General description is an elderly female up in the chair in no distress. RESPIRATORY SYSTEM: Unlabored breathing. Clear to auscultation anteriorly. HEART: S1, S2. Regular rate and rhythm. ABDOMEN: Soft. No tenderness. LABS: BUN of 34, creatinine 0.48. DIAGNOSTIC IMPRESSION AND PLAN: Patient with abdominal abscess, perforated diverticulitis, status post diverting colostomy. The patient has adequately received antibiotic therapy. Antibiotic has to be adjusted because of her significant thrombocytopenia. Currently on Ceftin and Flagyl; may continue for a short course and close outpatient followup. MMODL / IJN: [id number] /
[2021-02-02] MEDS: ZOLPIDEM 5 MG TAB PO SCH (22:32)
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
[2021-02-03] MEDS: metroNIDAZOLE-NS PMX 500 MG in SALINE 1 100ML.BAG IVPB SCH ×4 (00:53→23:52)
[2021-02-03 06:41] LABS: African American GFR (CKD) >90 (>60 ml/min/1.73 sqM); Anion Gap 2 mmol/L; Blood Urea Nitrogen 31 mg/dL (7-17); C Reactive Protein 8.5 mg/L (<10.0); Calcium 8.5 mg/dL (8.4-10.2); Carbon Dioxide 29 mmol/L (22-30); Chloride 103 mmol/L (98-107); Glucose 175 mg/dL (74-99); Magnesium 1.9 mg/dL (1.6-2.3); Non-African American GFR(CKD) >90 (>60 ml/min/1.73 sqM); Phosphorus 3.1 mg/dL (2.5-4.5); Potassium 4.1 mmol/L (3.5-5.1); Sodium 134 mmol/L (137-145)
[2021-02-03 06:50] LABS: Basophils % (A) 0 %; Eosinophils % (A) 0 %; HCT 26.9 % (34.0-46.0); HGB 9.7 gm/dL (11.4-16.0); Lymphocytes # (A) 0.4 k/uL (1.0-4.8); Lymphocytes % (A) 6 %; MCH 33.9 pg (25.0-35.0); MCHC 36.1 g/dL (31.0-37.0); MCV 93.9 fL (80.0-100.0); Mean Platelet Volume 8.6; Monocytes # (A) 0.6 k/uL (0-1.0); Monocytes % (A) 8 %; Neutrophils # (A) 6.1 k/uL (1.3-7.7); Neutrophils % (A) 85 %; RBC 2.87 m/uL (3.80-5.40); RDW 15.1 % (11.5-15.5); WBC 7.2 k/uL (3.8-10.6)
[2021-02-03 06:57] LABS: Platelet Count 162 k/uL (150-450)
[2021-02-03] MEDS: predniSONE 20 MG TAB PO SCH (09:06)
[2021-02-03] MEDS: PANTOPRAZOLE 40 MG/10 ML VIAL IVP SCH (09:06)
[2021-02-03] MEDS: CEFDINIR 300 MG CAP PO SCH ×2 (09:07→20:18)
[2021-02-03] MEDS: CITALOPRAM HYDROBROMIDE 10 MG TAB PO SCH (09:07)
[2021-02-03] MEDS: CARBIDOPA-LEVODOPA 25-100 MG 1 EACH TAB PO SCH ×4 (09:08→20:18)
[2021-02-03] MEDS: METOPROLOL SUCCINATE (ER) 50 MG TAB.ER.24H PO SCH (09:08)
[2021-02-03] MEDS: LOSARTAN 50 MG TAB PO SCH (09:08)
[2021-02-03] MEDS: SODIUM CHLORIDE TAB 1 GM TAB PO SCH (09:08)
[2021-02-03] MEDS: amLODIPine 10 MG TAB PO SCH (09:08)
[2021-02-03] MEDS: LEVOTHYROXINE 25 MCG TAB PO SCH (09:09)
[2021-02-03] MEDS: ACETAMINOPHEN TAB 325 MG TAB PO PRN (11:32)
[2021-02-03 11:46] LABS: Glucose,Whole Blood 191 mg/dL (75-99)
--- NOTE | 2021-02-03 13:48 | P.PN ---
Subjective Progress Note Date: 02/03/21 CHIEF COMPLAINT: Abdominal pain HISTORY OF PRESENT ILLNESS: Patient is status post sigmoid colectomy with end colostomy and excision of left fallopian tube for diverticulitis with pelvic abscess. Patient sitting up at bedside chair. She reports that her pain is controlled. She denies any vomiting. Discussed case with dietitian. Patient is only eating about 25% of her meals. She is not meeting her calorie needs. She does remain on TPN. Her ostomy is functioning. Afebrile. WBC 7.2 HGB 9.7 platelets 162 sodium 134 Patient seen and examined with Dr. Orona PHYSICAL EXAM: VITAL SIGNS: Reviewed. GENERAL: Well-developed in no acute distress. HEENT: No sclera icterus. Extraocular movements grossly intact. Moist buccal mucosa. Head is atraumatic, normocephalic. ABDOMEN: Soft. Nondistended nontender incision site clean dry and intact Brown stool and air noted in ostomy bag. NEUROLOGIC: Alert and oriented. Cranial nerves II through XII grossly intact. ASSESSMENT: 1. Diverticulitis with perforation and pelvic abscess status post sigmoid colectomy with end colostomy and excision of left fallopian tube on 01/16/2021 2. Anemia status post blood transfusion during this admission 3. Hyponatremia followed by nephrology 4. Thrombocytopenia and possible ITP followed by hematology PLAN: -We'll have patient do a calorie count over the weekend. -Patient is tentatively scheduled for PEG tube placement on 02/06/[address] Orona depending on calorie count results -Continue low fiber diet -Encourage patient to increase oral intake -Continue TPN for nutrition support -Continue antibiotics per ID -Continue pain medication as needed. -Encouraged patient to increase activity and to use incentive spirometer -Patient will require placement at time of discharge Physician Buggy Loader note has been reviewed by physician. Signing provider agrees with the documented findings, assessment, and plan of care. Objective - Vital Signs Vital signs: Vital Signs Temp 97.6 F 02/03/21 13:06 Pulse 77 02/03/21 13:06 Resp 20 02/03/21 13:06 BP 150/81 02/03/21 13:06 Pulse Ox 97 02/03/21 13:06 Intake & Output 02/02/21 02/03/21 02/03/21 18:59 06:59 18:59 Intake Total 1834 Output Total 500 1100 1800 Balance 1334 -1100 -1800 Weight 72.575 kg 72.575 kg Intake: Intake, IV Titration 1054 Amount Mvi, Adult No.4 with Vit 1054 K 10 ml Trace (Conc-1Ml/ Dose) 1 ml Sodium Acetate 20 meq Sodium Chloride 4Meq/ml Vial 80 meq Magnesium Sulfate gm 1.5 gm Potassium Chloride 20 meq In Amino Acid 5%-D15w +Lytes*E* 1,000 ml @ 70 mls/hr IV .BY DURATION [facility] Rx#:[id number] Oral 780 Output: Urine 500 1100 1800 Other: Voiding Method Incontinent External Catheter - Labs CBC & Chem 7: 02/03/21 04:27 02/03/21 04:27 Labs: Abnormal Lab Results - Last 24 Hours (Table) 02/02/21 02/03/21 02/03/21 Range/Units 17:13 04:27 04:27 RBC 2.87 L (3.80-5.40) m/uL Hgb 9.7 L (11.4-16.0) gm/dL Hct 26.9 L (34.0-46.0) % Lymphocytes # 0.4 L (1.0-4.8) k/uL Sodium 134 L (137-145) mmol/L BUN 31 H (7-17) mg/dL Creatinine 0.50 L (0.52-1.04) mg/dL Glucose 175 H (74-99) mg/dL POC Glucose (mg/dL) 146 H (75-99) mg/dL 02/03/21 Range/Units 11:45 RBC (3.80-5.40) m/uL Hgb (11.4-16.0) gm/dL Hct (34.0-46.0) % Lymphocytes # (1.0-4.8) k/uL Sodium (137-145) mmol/L BUN (7-17) mg/dL Creatinine (0.52-1.04) mg/dL Glucose (74-99) mg/dL POC Glucose (mg/dL) 191 H (75-99) mg/dL
--- NOTE | 2021-02-03 15:13 | P.PN ---
Subjective Progress Note Date: 02/03/21 Principal diagnosis: ITP Platelets have recovered 162K Objective - Vital Signs Vital signs: Vital Signs Temp 97.6 F 02/03/21 13:06 Pulse 77 02/03/21 13:06 Resp 20 02/03/21 13:06 BP 150/81 02/03/21 13:06 Pulse Ox 97 02/03/21 13:06 Intake & Output 02/02/21 02/03/21 02/03/21 18:59 06:59 18:59 Intake Total 1834 Output Total 500 1100 1800 Balance 1334 -1100 -1800 Weight 72.575 kg 72.575 kg Intake: Intake, IV Titration 1054 Amount Mvi, Adult No.4 with Vit 1054 K 10 ml Trace (Conc-1Ml/ Dose) 1 ml Sodium Acetate 20 meq Sodium Chloride 4Meq/ml Vial 80 meq Magnesium Sulfate gm 1.5 gm Potassium Chloride 20 meq In Amino Acid 5%-D15w +Lytes*E* 1,000 ml @ 70 mls/hr IV .BY DURATION [facility] Rx#:[id number] Oral 780 Output: Urine 500 1100 1800 Other: Voiding Method Incontinent External Catheter - Exam - Constitutional General appearance: Present: cooperative, no acute distress, obese - EENT Eyes: Present: anicteric sclerae, EOMI ENT: Present: hearing grossly normal - Respiratory Details: Respirations even and unlabored at rest - Integumentary Integumentary Comment(s): Bruise on the right upper extremity is definitely baker operator automatic in color, the underlying hematomas smaller. The bruises on the patient's right hand as well as all of her fingertips are much improved as well - Neurologic Neurologic Comment(s): Essential tremor - Musculoskeletal Musculoskeletal: Present: generalized weakness - Psychiatric Psychiatric: Present: A&O x's 3, appropriate affect, intact judgment & insight - Labs CBC & Chem 7: 02/03/21 04:27 02/03/21 04:27 Labs: Abnormal Lab Results - Last 24 Hours (Table) 02/02/21 02/03/21 02/03/21 Range/Units 17:13 04:27 04:27 RBC 2.87 L (3.80-5.40) m/uL Hgb 9.7 L (11.4-16.0) gm/dL Hct 26.9 L (34.0-46.0) % Lymphocytes # 0.4 L (1.0-4.8) k/uL Sodium 134 L (137-145) mmol/L BUN 31 H (7-17) mg/dL Creatinine 0.50 L (0.52-1.04) mg/dL Glucose 175 H (74-99) mg/dL POC Glucose (mg/dL) 146 H (75-99) mg/dL 02/03/21 Range/Units 11:45 RBC (3.80-5.40) m/uL Hgb (11.4-16.0) gm/dL Hct (34.0-46.0) % Lymphocytes # (1.0-4.8) k/uL Sodium (137-145) mmol/L BUN (7-17) mg/dL Creatinine (0.52-1.04) mg/dL Glucose (74-99) mg/dL POC Glucose (mg/dL) 191 H (75-99) mg/dL Assessment and Plan Plan: Assessment and Plan (1) Thrombocytopenia - Continue tapering oral prednisone slowly to avoid refractory ITP - ITP 2/2 severe infection/overactive immune system, surgery and to a degree consumption. Vancomycin can exacerbate thrombocytopenia and cause it to be persistent despite transfusion as well. - Vancomycin was stopped. Steroids and IVIG given. - Patient will be provided with instructions for a taper. - Add PPI (2) Medication induced coagulopathy Doctor attests: I performed a history and physical examination of this patient, developed impression and plan of care. Discussed with dictator. I agree with dictators note, documented as a scribe.
[2021-02-03] MEDS: FAT EMULSION 20% 250 ML in EMPTY BAG 1 BAG IV SCH (17:13)
[2021-02-03 17:21] LABS: Glucose,Whole Blood 283 mg/dL (75-99)
[2021-02-03] MEDS: ZOLPIDEM 5 MG TAB PO SCH (20:18)
--- NOTE | 2021-02-03 20:34 | PN ---
PROGRESS NOTE Patient is seen for followup for hyponatremia. She has been receiving Samsca on and off. 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 Patient was maintained on significant dose of sodium chloride tablets. However, this was decreased secondary to worsening edema as well as hypertension. PHYSICAL EXAMINATION: Patient is comfortable. She has started to eat. Her blood pressure this morning was 156/78, heart rate 77 per minute. She is afebrile. EXAMINATION OF THE HEART: S1 and S2. EXAMINATION OF LUNGS: Bilateral breath sounds are heard. ABDOMEN: Soft, non-tender. Examination of lower extremities shows edema 1+ bilaterally. PROSTHETIC DENTIST exam is grossly intact. LABS: Hemoglobin 9.7, sodium 134 today, potassium 4.1, creatinine 0.5. ASSESSMENT: 1. Hyponatremia secondary to syndrome of inappropriate antidiuretic hormone, currently maintained on sodium chloride tabs, dose of which was decreased. Patient has been receiving Samsca on and off. She is at 134 today. We will continue to monitor for now. She is encouraged to increase oral protein intake since she has started to eat. 2. Diverticulitis/pelvic abscess, status post partial colectomy and colostomy. It was mostly sigmoid colectomy. 3. Hypertension. PLAN: Continue to monitor serum sodium. Encourage increased oral intake. Repeat labs in a.m. MMODL / IJN: [id number] /
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
--- NOTE | 2021-02-04 06:26 | PN ---
PROGRESS NOTE DATE OF SERVICE: 02/03/2021 REASON FOR FOLLOW UP: Abdominal abscess. INTERVAL HISTORY: Patient is currently afebrile. Patient is breathing comfortably. The patient denies having any chest pain. No shortness of breath or cough. Abdominal pain is currently controlled, overall has slightly decreased. PHYSICAL EXAMINATION: Blood pressure 150/81, pulse 77, temperature 97.6, she is 97% on room air. General description is an elderly female up in the bed in no distress. Respiratory system: Unlabored breathing, decreased intensity of breath sounds. No wheeze. HEART: S1, S2. Regular rate and rhythm. Abdomen is soft, no tenderness. No guarding or rigidity. LAB: Hemoglobin 9.7, white count 7.2, BUN of 31, creatinine 0.50, CRP 8.5. DIAGNOSTIC IMPRESSION AND PLAN: Patient with intraabdominal abscess from perforated diverticulitis. Culture with in this patient who did have significant thrombocytopenia secondary to vancomycin, cefepime and therefore has been discontinued. The patient's white count has normalized. White count is normal. She is currently on Ceftin and Flagyl for a few days to continue and monitor clinical course closely. MMODL / IJN: [id number] / MTDD
[2021-02-04 07:03] LABS: Glucose,Whole Blood 140 mg/dL (75-99)
[2021-02-04 08:04] LABS: ALT 9 U/L (4-34); AST 34 U/L (14-36); African American GFR (CKD) >90 (>60 ml/min/1.73 sqM); Albumin 2.3 g/dL (3.5-5.0); Albumin/Globulin Ratio 0.6; Alkaline Phosphatase 114 U/L (38-126); Anion Gap 2 mmol/L; Blood Urea Nitrogen 28 mg/dL (7-17); Calcium 8.1 mg/dL (8.4-10.2); Carbon Dioxide 29 mmol/L (22-30); Chloride 103 mmol/L (98-107); Globulin 3.6 g/dL; Glucose 126 mg/dL (74-99); Magnesium 1.9 mg/dL (1.6-2.3); Non-African American GFR(CKD) >90 (>60 ml/min/1.73 sqM); Phosphorus 2.6 mg/dL (2.5-4.5); Potassium 3.6 mmol/L (3.5-5.1); Sodium 134 mmol/L (137-145); Total Bilirubin 0.5 mg/dL (0.2-1.3); Total Protein 5.9 g/dL (6.3-8.2)
[2021-02-04] MEDS: PANTOPRAZOLE 40 MG/10 ML VIAL IVP SCH (08:36)
[2021-02-04] MEDS: metroNIDAZOLE-NS PMX 500 MG in SALINE 1 100ML.BAG IVPB SCH ×3 (08:36→23:56)
[2021-02-04] MEDS: LEVOTHYROXINE 25 MCG TAB PO SCH (08:36)
[2021-02-04] MEDS: amLODIPine 10 MG TAB PO SCH (08:36)
[2021-02-04] MEDS: METOPROLOL SUCCINATE (ER) 50 MG TAB.ER.24H PO SCH (08:37)
[2021-02-04] MEDS: LOSARTAN 50 MG TAB PO SCH (08:37)
[2021-02-04] MEDS: CITALOPRAM HYDROBROMIDE 10 MG TAB PO SCH (08:37)
[2021-02-04] MEDS: CARBIDOPA-LEVODOPA 25-100 MG 1 EACH TAB PO SCH ×4 (08:37→20:52)
[2021-02-04] MEDS: CEFDINIR 300 MG CAP PO SCH ×2 (08:37→20:53)
[2021-02-04] MEDS: SODIUM CHLORIDE TAB 1 GM TAB PO SCH (08:37)
[2021-02-04] MEDS: predniSONE 20 MG TAB PO SCH (08:38)
--- NOTE | 2021-02-04 08:51 | P.PN ---
Subjective Patient is seen in follow-up for hyponatremia. Sodium level stable at 134 today. She is receiving TPN. Oral intake fair. Good urine output. No chest pain or shortness of breath. Hemodynamically stable. Vital signs are stable. General: The patient appeared well nourished and normally developed. HEENT: Head exam is unremarkable. Neck is without jugular venous distension. LUNGS: Breath sounds decreased. HEART: Rate and Rhythm are regular. ABDOMEN: Soft, nontender. EXTREMITITES: No edema. Objective - Vital Signs Vital signs: Vital Signs Temp 98.2 F 02/04/21 05:30 Pulse 75 02/04/21 05:30 Resp 20 02/04/21 05:30 BP 155/90 02/04/21 05:30 Pulse Ox 97 02/04/21 05:30 Intake & Output 02/03/21 02/04/21 02/04/21 18:59 06:59 18:59 Intake Total 835 240 Output Total 2500 800 Balance -1665 240 -800 Weight 72.575 kg Intake: Oral 835 240 Output: Urine 2500 800 Other: Voiding Method Incontinent External Catheter - Labs CBC & Chem 7: 02/03/21 04:27 02/04/21 06:50 Labs: Abnormal Lab Results - Last 24 Hours (Table) 02/03/21 02/03/21 02/04/21 Range/Units 11:45 17:19 06:50 Sodium 134 L (137-145) mmol/L BUN 28 H (7-17) mg/dL Creatinine 0.47 L (0.52-1.04) mg/dL Glucose 126 H (74-99) mg/dL POC Glucose (mg/dL) 191 H 283 H (75-99) mg/dL Calcium 8.1 L (8.4-10.2) mg/dL Total Protein 5.9 L (6.3-8.2) g/dL Albumin 2.3 L (3.5-5.0) g/dL 02/04/21 Range/Units 07:01 Sodium (137-145) mmol/L BUN (7-17) mg/dL Creatinine (0.52-1.04) mg/dL Glucose (74-99) mg/dL POC Glucose (mg/dL) 140 H (75-99) mg/dL Calcium (8.4-10.2) mg/dL Total Protein (6.3-8.2) g/dL Albumin (3.5-5.0) g/dL Assessment and Plan Plan: Assessment: 1. Hyponatremia, euvolemic. Sodium level 134. Receiving TPN. Also on sodium chloride tablet. Has also received Samsca this admission. On Celexa which can induce SIADH. Cortisol level normal. TSH normal. Urine osmolality 474 and urine sodium 126. 2. Diverticulitis and pelvic abscess status post exploratory laparotomy, sigmoid colectomy and colostomy. 3. Benign hypertension. Stable. Plan: Maintain sodium chloride tab. 1200 mL fluid restriction. Encouraged oral intake particularly protein.
--- NOTE | 2021-02-04 11:03 | P.PN ---
Subjective Progress Note Date: 02/04/21 Principal diagnosis: Diverticulitis Patient says she feels fatigue. Her pain is improved. She is eating better she states. No nausea or vomiting. Ostomy functioning. Objective - Vital Signs Vital signs: Vital Signs Temp 98.2 F 02/04/21 05:30 Pulse 75 02/04/21 05:30 Resp 20 02/04/21 05:30 BP 155/90 02/04/21 05:30 Pulse Ox 97 02/04/21 05:30 Intake & Output 02/03/21 02/04/21 02/04/21 18:59 06:59 18:59 Intake Total 835 240 Output Total 2500 800 Balance -1665 240 -800 Weight 72.575 kg Intake: Oral 835 240 Output: Urine 2500 800 Other: Voiding Method Incontinent External Catheter - Exam Abdomen: Soft, nondistended, incision clean and dry, ostomy functioning - Labs CBC & Chem 7: 02/03/21 04:27 02/04/21 06:50 Labs: Abnormal Lab Results - Last 24 Hours (Table) 02/03/21 02/03/21 02/04/21 Range/Units 11:45 17:19 06:50 Sodium 134 L (137-145) mmol/L BUN 28 H (7-17) mg/dL Creatinine 0.47 L (0.52-1.04) mg/dL Glucose 126 H (74-99) mg/dL POC Glucose (mg/dL) 191 H 283 H (75-99) mg/dL Calcium 8.1 L (8.4-10.2) mg/dL Total Protein 5.9 L (6.3-8.2) g/dL Albumin 2.3 L (3.5-5.0) g/dL 02/04/21 Range/Units 07:01 Sodium (137-145) mmol/L BUN (7-17) mg/dL Creatinine (0.52-1.04) mg/dL Glucose (74-99) mg/dL POC Glucose (mg/dL) 140 H (75-99) mg/dL Calcium (8.4-10.2) mg/dL Total Protein (6.3-8.2) g/dL Albumin (3.5-5.0) g/dL Assessment and Plan (1) Diverticulitis Narrative/Plan: Overall patient seemed to be improving. Her diet likewise seems to be doing better. Continue calorie count. Patient refusing PEG tube. Will follow. Current Visit: Yes Status: Acute Code(s): K57.92 - DVTRCLI OF INTEST, PART UNSP, W/O PERF OR ABSCESS W/O BLEED SNOMED Code(s): 028183713
[2021-02-04 11:58] LABS: Glucose,Whole Blood 205 mg/dL (75-99)
[2021-02-04 17:13] LABS: Glucose,Whole Blood 203 mg/dL (75-99)
[2021-02-04] MEDS: 1: MVI, ADULT NO.4 WITH VIT K 10 ML, TRACE (CONC-1ML/DOSE) 1 ML, SODIUM ACETATE 30 MEQ, IV SCH ×7 (17:57)
--- NOTE | 2021-02-04 18:56 | PN ---
PROGRESS NOTE DATE OF SERVICE: 02/04/2021 REASON FOR FOLLOW UP: Perforated diverticulitis. INTERVAL HISTORY: Patient is currently afebrile. Patient is breathing comfortably. Patient denies having any chest pain. No shortness of breath. Abdominal pain is currently controlled. No vomiting. PHYSICAL EXAMINATION: Blood pressure 126/64, pulse of 73, temperature 98.1. She is 95% on room air. General description is an elderly female up in the chair in no distress. Respiratory system: Unlabored breathing, is clear to auscultation anteriorly. Heart: S1, S2. Regular rate and rhythm. Abdomen soft, no tenderness. LABS: BUN of 28, creatinine 0.47. DIAGNOSTIC IMPRESSION AND PLAN: Patient with abdominal abscess from diverticulitis status post diverting colostomy. The patient's underlying infection has been adequately treated. The patient is currently on oral Ceftin and Flagyl to continue and monitor clinical course closely. MMODL / IJN: [id number] /
[2021-02-04] MEDS: ZOLPIDEM 5 MG TAB PO SCH (20:51)
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
[2021-02-05 07:25] LABS: Glucose,Whole Blood 122 mg/dL (75-99)
[2021-02-05] MEDS: METOPROLOL SUCCINATE (ER) 50 MG TAB.ER.24H PO SCH (08:06)
[2021-02-05] MEDS: predniSONE 20 MG TAB PO SCH (08:06)
[2021-02-05] MEDS: LOSARTAN 50 MG TAB PO SCH (08:06)
[2021-02-05] MEDS: amLODIPine 10 MG TAB PO SCH (08:06)
[2021-02-05] MEDS: PANTOPRAZOLE 40 MG/10 ML VIAL IVP SCH (08:07)
[2021-02-05] MEDS: CITALOPRAM HYDROBROMIDE 10 MG TAB PO SCH (08:07)
[2021-02-05] MEDS: metroNIDAZOLE-NS PMX 500 MG in SALINE 1 100ML.BAG IVPB SCH ×3 (08:07→23:21)
[2021-02-05] MEDS: LEVOTHYROXINE 25 MCG TAB PO SCH (08:08)
[2021-02-05] MEDS: CEFDINIR 300 MG CAP PO SCH ×2 (08:08→21:24)
[2021-02-05] MEDS: CARBIDOPA-LEVODOPA 25-100 MG 1 EACH TAB PO SCH ×4 (08:08→21:23)
[2021-02-05] MEDS: SODIUM CHLORIDE TAB 1 GM TAB PO SCH (08:08)
[2021-02-05 09:01] LABS: African American GFR (CKD) >90 (>60 ml/min/1.73 sqM); Anion Gap 1 mmol/L; Blood Urea Nitrogen 25 mg/dL (7-17); Carbon Dioxide 29 mmol/L (22-30); Chloride 101 mmol/L (98-107); Glucose 113 mg/dL (74-99); Non-African American GFR(CKD) >90 (>60 ml/min/1.73 sqM); Phosphorus 2.9 mg/dL (2.5-4.5); Potassium 3.8 mmol/L (3.5-5.1); Sodium 131 mmol/L (137-145)
--- NOTE | 2021-02-05 10:43 | P.PN ---
Subjective Patient is seen in follow-up for hyponatremia. Sodium level 131. She is receiving TPN. Oral intake fair. Good urine output. No chest pain or sh ortness of breath. Hemodynamically stable. No changes overnight. Vital signs are stable. General: The patient appeared well nourished and normally developed. HEENT: Head exam is unremarkable. Neck is without jugular venous distension. LUNGS: Breath sounds decreased. HEART: Rate and Rhythm are regular. ABDOMEN: Soft, nontender. EXTREMITITES: No edema. Objective - Vital Signs Vital signs: Vital Signs Temp 98.1 F 02/05/21 05:00 Pulse 77 02/05/21 05:00 Resp 16 02/05/21 05:00 BP 151/77 02/05/21 05:00 Pulse Ox 96 02/05/21 05:00 Intake & Output 02/04/21 02/05/21 02/05/21 18:59 06:59 18:59 Output Total 800 1100 800 Balance -800 -1100 -800 Weight 72.575 kg Output: Urine 800 1100 800 Uretheral (Clark) 1100 Other: Voiding Method Incontinent Diaper External Catheter Incontinent External Catheter # Voids 950 # Bowel Movements 1 - Labs CBC & Chem 7: 02/03/21 04:27 02/05/21 07:44 Labs: Abnormal Lab Results - Last 24 Hours (Table) 02/04/21 02/04/21 02/05/21 Range/Units 11:56 17:12 07:23 Sodium (137-145) mmol/L BUN (7-17) mg/dL Creatinine (0.52-1.04) mg/dL Glucose (74-99) mg/dL POC Glucose (mg/dL) 205 H 203 H 122 H (75-99) mg/dL Calcium (8.4-10.2) mg/dL 02/05/21 Range/Units 07:44 Sodium 131 L (137-145) mmol/L BUN 25 H (7-17) mg/dL Creatinine 0.49 L (0.52-1.04) mg/dL Glucose 113 H (74-99) mg/dL POC Glucose (mg/dL) (75-99) mg/dL Calcium 8.0 L (8.4-10.2) mg/dL Assessment and Plan Plan: Assessment: 1. Hyponatremia, euvolemic. Sodium level 131. Receiving TPN. Also on sodium chloride tablet. Has also received Samsca this admission. On Celexa which can induce SIADH. Cortisol level normal. TSH normal. Urine osmolality 474 and urine sodium 126. 2. Diverticulitis and pelvic abscess status post exploratory laparotomy, sigmoid colectomy and colostomy. 3. Benign hypertension. Stable. Plan: Maintain sodium chloride tab. 1200 mL fluid restriction. Encouraged oral intake particularly protein. Will repeat Samsca if sodium level drops further.
--- NOTE | 2021-02-05 10:44 | P.PN ---
Subjective Progress Note Date: 02/05/21 Principal diagnosis: Diverticulitis Patient doing better today. She ate most of her breakfast. She is declining PEG tube placement. No pain. Objective - Vital Signs Vital signs: Vital Signs Temp 98.1 F 02/05/21 05:00 Pulse 77 02/05/21 05:00 Resp 16 02/05/21 05:00 BP 151/77 02/05/21 05:00 Pulse Ox 96 02/05/21 05:00 Intake & Output 02/04/21 02/05/21 02/05/21 18:59 06:59 18:59 Output Total 800 1100 800 Balance -800 -1100 -800 Weight 72.575 kg Output: Urine 800 1100 800 Uretheral (Clark) 1100 Other: Voiding Method Incontinent Diaper External Catheter Incontinent External Catheter # Voids 950 # Bowel Movements 1 - Exam Abdomen: Soft, nondistended, incision clean and dry - Labs CBC & Chem 7: 02/03/21 04:27 02/05/21 07:44 Labs: Abnormal Lab Results - Last 24 Hours (Table) 02/04/21 02/04/21 02/05/21 Range/Units 11:56 17:12 07:23 Sodium (137-145) mmol/L BUN (7-17) mg/dL Creatinine (0.52-1.04) mg/dL Glucose (74-99) mg/dL POC Glucose (mg/dL) 205 H 203 H 122 H (75-99) mg/dL Calcium (8.4-10.2) mg/dL 02/05/21 Range/Units 07:44 Sodium 131 L (137-145) mmol/L BUN 25 H (7-17) mg/dL Creatinine 0.49 L (0.52-1.04) mg/dL Glucose 113 H (74-99) mg/dL POC Glucose (mg/dL) (75-99) mg/dL Calcium 8.0 L (8.4-10.2) mg/dL Assessment and Plan (1) Diverticulitis Narrative/Plan: Continue encouraging oral intake. No plans for PEG tube at this time. DC TPN. Possible discharge soon. We'll remove one half jesse. Current Visit: Yes Status: Acute Code(s): K57.92 - DVTRCLI OF INTEST, PART UNSP, W/O PERF OR ABSCESS W/O BLEED SNOMED Code(s): 894661754
[2021-02-05] MEDS: 1: MVI, ADULT NO.4 WITH VIT K 10 ML, TRACE (CONC-1ML/DOSE) 1 ML, SODIUM ACETATE 30 MEQ, IV SCH ×7 (11:52)
[2021-02-05 12:39] LABS: Glucose,Whole Blood 128 mg/dL (75-99)
--- NOTE | 2021-02-05 20:54 | PN ---
PROGRESS NOTE DATE OF SERVICE: 02/05/2021. REASON FOR FOLLOW UP: Perforated diverticulitis and abscess. INTERVAL HISTORY: The patient is currently afebrile. The patient's oral intake remains to be poor. The patient denies having any chest pain. No shortness of breath or cough. No abdominal pain, no diarrhea. PHYSICAL EXAMINATION: Blood pressure 149/72, pulse of 78 temperature is 97.6. She is 97% on room air. General description is an elderly female lying in bed in no distress. Respiratory system: Unlabored breathing, clear to auscultation anteriorly. Heart S1, S2. Regular rate and rhythm. Abdomen soft, no tenderness. LABS: BUN of 25, creatinine 0.49. DIAGNOSTIC IMPRESSION AND PLAN: Patient with intra-abdominal abscess, perforated diverticulitis status post diverting colostomy. The patient is currently on Ceftin and Flagyl to complete her course. Continue supportive care. MMODL / IJN: [id number] / MTDD
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
[2021-02-05] MEDS: ZOLPIDEM 5 MG TAB PO SCH (21:23)
[2021-02-06] MEDS: traMADol 50 MG TAB PO PRN (01:43)
[2021-02-06 05:01] LABS: ALT 8 U/L (4-34); AST 33 U/L (14-36); African American GFR (CKD) >90 (>60 ml/min/1.73 sqM); Albumin 2.3 g/dL (3.5-5.0); Albumin/Globulin Ratio 0.7; Alkaline Phosphatase 116 U/L (38-126); Anion Gap 3 mmol/L; Blood Urea Nitrogen 18 mg/dL (7-17); Calcium 8.2 mg/dL (8.4-10.2); Carbon Dioxide 30 mmol/L (22-30); Chloride 99 mmol/L (98-107); Globulin 3.3 g/dL; Glucose 72 mg/dL (74-99); Magnesium 1.6 mg/dL (1.6-2.3); Non-African American GFR(CKD) >90 (>60 ml/min/1.73 sqM); Potassium 3.8 mmol/L (3.5-5.1); Sodium 132 mmol/L (137-145); Total Bilirubin 0.8 mg/dL (0.2-1.3); Total Protein 5.6 g/dL (6.3-8.2)
[2021-02-06] MEDS: metroNIDAZOLE-NS PMX 500 MG in SALINE 1 100ML.BAG IVPB SCH ×2 (08:29→15:45)
[2021-02-06] MEDS: CARBIDOPA-LEVODOPA 25-100 MG 1 EACH TAB PO SCH ×2 (08:30→11:59)
[2021-02-06] MEDS: CEFDINIR 300 MG CAP PO SCH (08:30)
[2021-02-06] MEDS: SODIUM CHLORIDE TAB 1 GM TAB PO SCH (08:30)
[2021-02-06] MEDS: predniSONE 20 MG TAB PO SCH (08:30)
[2021-02-06] MEDS: LOSARTAN 50 MG TAB PO SCH (08:30)
[2021-02-06] MEDS: METOPROLOL SUCCINATE (ER) 50 MG TAB.ER.24H PO SCH (08:30)
[2021-02-06] MEDS: PANTOPRAZOLE 40 MG/10 ML VIAL IVP SCH (08:31)
[2021-02-06] MEDS: amLODIPine 10 MG TAB PO SCH (08:31)
[2021-02-06] MEDS: LEVOTHYROXINE 25 MCG TAB PO SCH (08:31)
[2021-02-06] MEDS: CITALOPRAM HYDROBROMIDE 10 MG TAB PO SCH (08:31)
--- NOTE | 2021-02-06 11:26 | P.PN ---
Subjective Patient is seen in follow-up for hyponatremia. Sodium level 132. TPN discontinued February 05. Oral intake fair. Good urine output. No chest pain or shortness of breath. Hemodynamically stable. Vital signs are stable. General: The patient appeared well nourished and normally developed. HEENT: Head exam is unremarkable. Neck is without jugular venous distension. LUNGS: Breath sounds decreased. HEART: Rate and Rhythm are regular. ABDOMEN: Soft, nontender. EXTREMITITES: No edema. Objective - Vital Signs Vital signs: Vital Signs Temp 98.1 F 02/06/21 05:00 Pulse 78 02/06/21 05:00 Resp 16 02/06/21 05:00 BP 170/80 02/06/21 05:00 Pulse Ox 97 02/06/21 05:00 Intake & Output 02/05/21 02/06/21 02/06/21 18:59 06:59 18:59 Intake Total 600 100 Output Total 2200 2000 Balance -1600 -1900 Intake: Intake, IV Titration 100 Amount metroNIDAZOLE-NS PMX 500 100 mg In Saline 1 100ml.bag @ 100 mls/hr IVPB Q8HR [facility] Rx#:[id number] Oral 600 Output: Urine 2200 1999 Other: Voiding Method Diaper Diaper Diaper Incontinent Incontinent Incontinent External Catheter External Catheter External Catheter # Voids 1 # Bowel Movements 1 - Labs CBC & Chem 7: 02/03/21 04:27 02/06/21 04:16 Labs: Abnormal Lab Results - Last 24 Hours (Table) 02/05/21 02/06/21 Range/Units 12:37 04:16 Sodium 132 L (137-145) mmol/L BUN 18 H (7-17) mg/dL Creatinine 0.51 L (0.52-1.04) mg/dL Glucose 72 L (74-99) mg/dL POC Glucose (mg/dL) 128 H (75-99) mg/dL Calcium 8.2 L (8.4-10.2) mg/dL Total Protein 5.6 L (6.3-8.2) g/dL Albumin 2.3 L (3.5-5.0) g/dL Assessment and Plan Plan: Assessment: 1. Hyponatremia, euvolemic. Sodium level 132. TPN discontinued February 05. On sodium chloride tablet. Has also received Samsca this admission. On Celexa which can induce SIADH. Cortisol level normal. TSH normal. Urine osmolality 474 and urine sodium 126. 2. Diverticulitis and pelvic abscess status post exploratory laparotomy, sigmoid colectomy and colostomy. 3. Benign hypertension. Stable. Plan: Maintain sodium chloride tab. 1200 mL fluid restriction. Encouraged oral intake particularly protein. Continue to monitor.
[2021-02-06 12:17] VITALS: BP 136/80; PULSE 83; RESP 15; TEMP 98.3
--- NOTE | 2021-02-06 12:37 | P.PN ---
Subjective Progress Note Date: 02/06/21 CHIEF COMPLAINT: Abdominal pain HISTORY OF PRESENT ILLNESS: Patient is status post sigmoid colectomy with end colostomy and excision of left fallopian tube for diverticulitis with pelvic abscess. Patient denies any pain. Her ostomy is functioning. She is off of TPN. Patient has been eating at least 50% of her meals over the weekend. PEG tube placement is not necessary. She is afebrile. Sodium 132. PHYSICAL EXAM: VITAL SIGNS: Reviewed. GENERAL: Well-developed in no acute distress. HEENT: No sclera icterus. Extraocular movements grossly intact. Moist buccal mucosa. Head is atraumatic, normocephalic. ABDOMEN: Soft. Nondistended nontender incision site clean dry and intact Brown stool and air noted in ostomy bag. NEUROLOGIC: Alert and oriented. Cranial nerves II through XII grossly intact. ASSESSMENT: 1. Diverticulitis with perforation and pelvic abscess status post sigmoid c olectomy with end colostomy and excision of left fallopian tube on 01/16/2021 2. Anemia status post blood transfusion during this admission 3. Hyponatremia followed by nephrology 4. 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 Signing provider agrees with the documented findings, assessment, and plan of care. Objective - Vital Signs Vital signs: Vital Signs Temp 98.3 F 02/06/21 12:16 Pulse 83 02/06/21 12:16 Resp 15 02/06/21 12:16 BP 136/80 02/06/21 12:16 Pulse Ox 94 L 02/06/21 12:16 Intake & Output 02/05/21 02/06/21 02/06/21 18:59 06:59 18:59 Intake Total 600 100 Output Total 2200 1999 Balance -1600 -1900 Intake: Intake, IV Titration 100 Amount metroNIDAZOLE-NS PMX 500 100 mg In Saline 1 100ml.bag @ 100 mls/hr IVPB Q8HR [facility] Rx#:[id number] Oral 600 Output: Urine 2199 1999 Other: Voiding Method Diaper Diaper Diaper Incontinent Incontinent Incontinent External Catheter External Catheter External Catheter # Voids 1 # Bowel Movements 1 - Labs CBC & Chem 7: 02/03/21 04:27 02/06/21 04:16 Labs: Abnormal Lab Results - Last 24 Hours (Table) 02/05/21 02/06/21 Range/Units 12:37 04:16 Sodium 132 L (137-145) mmol/L BUN 18 H (7-17) mg/dL Creatinine 0.51 L (0.52-1.04) mg/dL Glucose 72 L (74-99) mg/dL POC Glucose (mg/dL) 128 H (75-99) mg/dL Calcium 8.2 L (8.4-10.2) mg/dL Total Protein 5.6 L (6.3-8.2) g/dL Albumin 2.3 L (3.5-5.0) g/dL
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
--- NOTE | 2021-02-06 15:16 | P.PN ---
Subjective Progress Note Date: 02/06/21 Principal diagnosis: thrombocytopenia In f/u today pt is up in bed, bruising is stable. Denies other bleeding. Objective - Vital Signs Vital signs: Vital Signs Temp 98.3 F 02/06/21 12:16 Pulse 83 02/06/21 12:16 Resp 15 02/06/21 12:16 BP 136/80 02/06/21 12:16 Pulse Ox 94 L 02/06/21 12:16 Intake & Output 02/05/21 02/06/21 02/06/21 18:59 06:59 18:59 Intake Total 600 100 Output Total 2200 1999 Balance -1600 -1900 Weight 72.575 kg Intake: Intake, IV Titration 100 Amount metroNIDAZOLE-NS PMX 500 100 mg In Saline 1 100ml.bag @ 100 mls/hr IVPB Q8HR MARLEN Rx#:[id number] Oral 600 Output: Urine 0 1999 Other: Voiding Method Diaper Diaper Diaper Incontinent Incontinent Incontinent External Catheter External Catheter External Catheter # Voids 1 # Bowel Movements 1 - Constitutional General appearance: Present: cooperative, obese - EENT Eyes: Present: anicteric sclerae, EOMI ENT: Present: hearing grossly normal - Respiratory Respiratory: bilateral: CTA - Cardiovascular Heart sounds: normal: S1, S2 - Peripheral edema foot Peripheral Edema: bilateral: 2+ - Gastrointestinal General gastrointestinal: Present: normal bowel sounds, soft - Neurologic Neurologic Comment(s): essential tremor - Psychiatric Psychiatric: Present: A&O x's 3, appropriate affect - Allied health notes Allied health notes reviewed: nursing - Labs CBC & Chem 7: 02/03/21 04:27 02/06/21 04:16 Labs: Abnormal Lab Results - Last 24 Hours (Table) 02/06/21 Range/Units 04:16 Sodium 132 L (137-145) mmol/L BUN 18 H (7-17) mg/dL Creatinine 0.51 L (0.52-1.04) mg/dL Glucose 72 L (74-99) mg/dL Calcium 8.2 L (8.4-10.2) mg/dL Total Protein 5.6 L (6.3-8.2) g/dL Albumin 2.3 L (3.5-5.0) g/dL Assessment and Plan (1) Thrombocytopenia Narrative/Plan: Plt did respond to platelet transfusion post administration of steroids and IVIG. Oral prednisone taper to begin. Orders for the taper are in discharge plan. 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 Vancomycin can exacerbate thrombocytopenia and cause it to be persistent despite transfusion as well. Vancomycin was stopped. Steroids and IVIG given. Plt recheck in the a.m. if inpt. CBC weekly while in rehab Current Visit: Yes Status: Acute Priority: High Code(s): D69.6 - THROMBOCYTOPENIA, UNSPECIFIED SNOMED Code(s): 006110568 (2) Medication induced coagulopathy Narrative/Plan: Cont Warm compresses to hematomas and NS nasal spray Cont to monitor Hgb. CBC in AM if inpt, weekly CBC in rehab Platelets > 50,000 okay to resume Coumadin with close monitoring-especially on antibiotic therapy. Suspect waiting to resume until after bruising is healed and CBC more stable. Current Visit: Yes Status: Acute Priority: High Code(s): D68.9 - COAGULATION DEFECT, UNSPECIFIED; T50.905A - ADVERSE EFFECT OF UNSP DRUG/MEDS/BIOL SUBST, INIT SNOMED Code(s): 251877035 Plan: CBC daily
--- NOTE | 2021-02-06 19:39 | PN ---
PROGRESS NOTE DATE OF SERVICE: 02/06/2021 REASON FOR FOLLOWUP: Diverticulitis with an abscess. INTERVAL HISTORY: The patient is currently afebrile. The patient has been breathing comfortably. The patient denies having any chest pain or shortness of breath or cough. Abdominal pain is currently controlled. No nausea, no vomiting. PHYSICAL EXAMINATION: Blood pressure 136/80 with a pulse of 83, temperature 98.3. She is 94% on room air. General description is an elderly female lying in bed in no distress. RESPIRATORY SYSTEM: Unlabored breathing. Clear to auscultation anteriorly. HEART: S1, S2. Regular rate and rhythm. ABDOMEN: Soft. No tenderness. LABS: BUN of 18, creatinine 0.51. DIAGNOSTIC IMPRESSION AND PLAN: Patient with perforated diverticulitis, status post diverting colostomy in this patient who has completed adequate antibiotic therapy. She will get a short course of oral Ceftin and Flagyl at discharge as per discussion with the admitting physician. Continue with supportive care. MMODL / IJN: [id number] /
[2021-02-07] MEDS ORDERED: predniSONE 20 MG TAB PO SCH (09:00)
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
== END 2021-02-06 17:32 | DRG 329 ==
LOC: EC 15:15 → 5NMEDONC 19:47
PROVIDERS: ADMIT Hospitalist; ATTEND Hospitalist
PROC: 30233K1 Transfusion of Nonautologous Frozen Plasma into Peripheral Vein, Percutaneous Approach (ICD-10-PCS; 2021-01-14)
PROC: 0D1M0Z4 Bypass Descending Colon to Cutaneous, Open Approach (ICD-10-PCS; 2021-01-16)
PROC: 0UT60ZZ Resection of Left Fallopian Tube, Open Approach (ICD-10-PCS; 2021-01-16)
PROC: 0DTN0ZZ Resection of Sigmoid Colon, Open Approach (ICD-10-PCS; principal; 2021-01-16 07:30)
PROC: 02HV33Z Insertion of Infusion Device into Superior Vena Cava, Percutaneous Approach (ICD-10-PCS; 2021-01-17)
PROC: B548ZZA Ultrasonography of Superior Vena Cava, Guidance (ICD-10-PCS; 2021-01-17)
PROC: 30233N1 Transfusion of Nonautologous Red Blood Cells into Peripheral Vein, Percutaneous Approach (ICD-10-PCS; 2021-01-17)
PROC: 3E0436Z Introduction of Nutritional Substance into Central Vein, Percutaneous Approach (ICD-10-PCS; 2021-01-18)
PROC: 30233S1 Transfusion of Nonautologous Globulin into Peripheral Vein, Percutaneous Approach (ICD-10-PCS; 2021-01-30)
PROC: 30233R1 Transfusion of Nonautologous Platelets into Peripheral Vein, Percutaneous Approach (ICD-10-PCS; 2021-01-30)
DX: K57.20 Diverticulitis of large intestine with perforation and abscess without bleeding (principal); G93.41 Metabolic encephalopathy; K65.9 Peritonitis, unspecified; K65.1 Peritoneal abscess; D62 Acute posthemorrhagic anemia; E44.0 Moderate protein-calorie malnutrition; E22.2 Syndrome of inappropriate secretion of antidiuretic hormone; K94.03 Colostomy malfunction; D68.9 Coagulation defect, unspecified; D69.3 Immune thrombocytopenic purpura; I48.0 Paroxysmal atrial fibrillation; I25.10 Atherosclerotic heart disease of native coronary artery without angina pectoris; I11.9 Hypertensive heart disease without heart failure; E78.5 Hyperlipidemia, unspecified; M19.90 Unspecified osteoarthritis, unspecified site; G40.909 Epilepsy, unspecified, not intractable, without status epilepticus; K56.41 Fecal impaction; E03.9 Hypothyroidism, unspecified; Z87.891 Personal history of nicotine dependence; G20 Parkinson's disease; Z79.890 Hormone replacement therapy; Z79.01 Long term (current) use of anticoagulants; Z88.1 Allergy status to other antibiotic agents; G47.01 Insomnia due to medical condition; R44.1 Visual hallucinations; Z53.09 Procedure and treatment not carried out because of other contraindication; E83.39 Other disorders of phosphorus metabolism; E16.2 Hypoglycemia, unspecified; E73.9 Lactose intolerance, unspecified; E87.70 Fluid overload, unspecified; D69.59 Other secondary thrombocytopenia; Z20.822 Contact with and (suspected) exposure to COVID-19; L27.0 Generalized skin eruption due to drugs and medicaments taken internally; E86.0 Dehydration; F41.9 Anxiety disorder, unspecified; M19.91 Primary osteoarthritis, unspecified site; N73.9 Female pelvic inflammatory disease, unspecified; R62.7 Adult failure to thrive; R04.0 Epistaxis; T36.8X5A Adverse effect of other systemic antibiotics, initial encounter; Z80.51 Family history of malignant neoplasm of kidney
CPT/HCPCS: 36415; 36573; 70450; 71045; 71275; 74018; 74177; 80048; 80053; 80202; 81001; 82150; 82330; 82533; 82550; 82728; 83605; 83615; 83690; 83735; 83930; 83935; 84100; 84145; 84295; 84300; 84443; 84478; 84484; 85025; 85379; 85384; 85610; 85730; 86140; 86850; 86900; 86901; 86920; 87040; 87070; 87075; 87086; 87205; 87635; 88305; 88307; 93005; 96361; 96374; 96375; 99285